=== PATIENT | male | born 1930 | race Caucasian/White ===

== ENCOUNTER 2017-08-26 13:30 | Inpatient (IN) | payer OTHER ==
[~2017-08-26] VITALS: Ht 167.6 cm; Wt 71.4 kg
[~2017-08-26 13:30] MED LIST: AGGRENOX 25 MG1 EACH PO; AMILORIDE HCL-1 EACH PO; CARDIZEM CD120 M2 PO; CLONAZEPAM0.5 M2 PO; FINASTERIDE5 M1 PO; HYDROCHLOROTHIA25 M1 PO; ISOSORBIDE MONO60 M1 PO; MELOXICAM15 M1 PO; PANTOPRAZOLE SO40 M1 PO; SIMVASTATIN20 M2 PO; TAMSULOSIN HCL0.4 M1 PO; TRAVATAN Z5 ML OPH
--- NOTE | 2017-08-26 14:08 | ED DYSPNEA/ASTHMA COMPLAINT ---
See Addendum History of Present Illness General Chief Complaint: Dyspnea (COPD, CHF, Other) Stated Complaint: BIBA DIFF BREATHING Source: patient, family Exam Limitations: no limitations Vital Signs & Intake/Output Vital Signs & Intake/Output Vital Signs Date Time Temp Pulse Resp B/P B/P Pulse O2 O2 Flow FiO2 Mean Ox Delivery Rate 08/26 1610 97.8 89 22 122/57 95 Nasal 4.0L Cannula 08/26 1426 Nasal Cannula 08/26 1357 96 Nasal 4.0L Cannula 08/26 1331 97.7 104 22 140/65 97 Nasal 4.0L Cannula Allergies Coded Allergies: NO KNOWN ALLERGIES (05/22/12) Reconcile Medications Amiloride/Hydrochlorothiazide (Amiloride HCl-Hctz 5-50 MG Tab) 5 MG-50 MG TABLET 1 TAB PO DAILY BP (Reported) Clonazepam 0.5 MG TABLET 1 TAB PO TIDPRN ANXIETY (Reported) Diltiazem HCl (Cardizem Cd) 120 MG CAP.ER.24H 1 TAB PO DAILY HR (Reported) Dipyridamole W/ Aspirin (Aggrenox 25 MG-200 MG Capsule) 25 MG-200 MG CPMP.12HR 1 TAB PO BID THINNER (Reported) Finasteride 5 MG TABLET 1 TAB PO DAILY UNK (Reported) Hydrochlorothiazide 25 MG TABLET 1 TAB PO DAILY HTN (Reported) Isosorbide Mononitrate (Isosorbide Mononitrate ER) 60 MG TAB.ER.24H 1 TAB PO DAILY BP (Reported) Meloxicam 15 MG TABLET 1 TAB PO DAILY PAIN (Reported) Pantoprazole Sodium 40 MG TABLET.DR 1 TAB PO DAILY GERD (Reported) Simvastatin (Simvastatin*) 20 MG TABLET 1 TAB PO QPM CHOL (Reported) Tamsulosin HCl 0.4 MG CAP.ER.24H 1 CAP PO DAILY URINE (Reported) Travoprost (Travatan Z) 0.004 % DROPS 1 GTT OPH QPM GLAUCOMA (Reported) Triage Note: PT BIBA FROM HOME SOB/DIFF BREATH - LAST 10 DAYS OF COUGH AND ANBX - O2 VIA NC AT 4L/M CO OF LOW OR NO APPETITE PT A&OX3 - DIMINISHED LUNG SOUNDS NOTED AT BASES BI-LAT - PT NOTED HEART HX Triage Nurses Notes Reviewed? yes Onset: 6 WEEKS AGO Duration: constant, worse persistent since Timing: CHRONIC OVER LAST 6 WEEKS Severity: moderate Activities at Onset: WORSE WHEN LAYING FLAT Prior Episodes/Possible Cause: chronic episodes, OVER LAST 6 WEEKS Associated Symptoms: cough, insomnia, loss of appetite HPI: 87 y/o male BIBA to ER w/ c/c increased SOB, productive cough and fatigue x 6 weeks. Per EMS RA sat 84%, placed on 3.5 L N/C sats 97% on arrival. Patient has seen PCP for same, flu test negative per family, given course of abx w/o improvement. Had chest CT scan 08/15 with plan to follow-up with Dr. Escobedo on 08/29. Patient denies fevers, chills, or chest pain. Patient states dyspnea worse at night when laying flat, experiencing insomnia from symptoms. Reported weight loss of 20 lbs over last 6 weeks per patient, admits anorexia and lack of appetitie. (Jossue Quiñones) Past History Travel History Traveled to [place] past 21 day No Medical History Any Pertinent Medical History? see below for history Neurological: NONE EENT: LENS INPLANT, GLAUCOMA Cardiovascular: HEART,HTN CHOL,?AFIB Respiratory: NONE Gastrointestinal: GERD Hepatic: NONE Renal: PROSTATE Musculoskeletal: NONE Psychiatric: anxiety Endocrine: NONE History of MRSA: No History of VRE: No History of CDIFF: No Tetanus Vaccine: 07/10/01 Surgical History Surgical History: non-contributory Psychosocial History Who do you live with Spouse Services at Home None What is your primary language Grenadian Tobacco Use: Quit >30 days ago Daily Tobacco Use Amount/Type: Cigar or Pipe use daily Family History Hx Contributory? No (Jossue Quiñones) Review of Systems Review of Systems Constitutional: Reports: no symptoms. EENTM: Reports: no symptoms. Respiratory: Reports: see HPI. Cardiovascular: Reports: no symptoms. GI: Reports: no symptoms. Genitourinary: Reports: no symptoms. Musculoskeletal: Reports: no symptoms. Skin: Reports: no symptoms. Neurological/Psychological: Reports: no symptoms. Hematologic/Endocrine: Reports: no symptoms. Immunologic/Allergic: Reports: no symptoms. All Other Systems: Reviewed and Negative (Jossue Quiñones) Physical Exam Physical Exam General Appearance: alert, awake, moderate distress Head: atraumatic Eyes: Bilateral: normal appearance, EOMI. Ears, Nose, Throat: normal ENT inspection, hearing grossly normal Neck: normal inspection Respiratory: decreased breath sounds, rhonchi Cardiovascular: regular rate/rhythm Extremities: normal inspection Neurologic/Psych: awake, alert, oriented x 3 Skin: intact, normal color Core Measures ACS in differential dx? No CVA/TIA Diagnosis No Sepsis Present: No Sepsis Focused Exam Completed? No (Jossue Quiñones) Progress Differential Diagnosis: asthma, AMI, bronchitis, costochondritis, CHF, COPD, musculoskeletal pain, pericarditis, pulmonary embolism, pneumonia, pneumothorax, unstable angina Plan of Care: Orders Procedure Date/time Status Regular Diet 08/26 D Active Pathway - chart 08/26 1700 Active Pathway - chart 08/26 1659 Active House Staff 08/26 1659 Active Patient Data 08/26 1659 Active LACTIC ACID 08/26 1659 Active Code Status 08/26 1659 Active Patient Data 08/26 1617 Active Intake & Output 08/26 1613 Active OXYGEN SETUP (GEN) 08/26 1530 Active Saline Lock 08/26 1530 Active Admit to inpatient 08/26 1530 Active Vital Signs 08/26 1530 Active Activity/Ambulation 08/26 1530 Active Code Status 08/26 1530 Complete BLOOD CULTURE 08/26 1407 Active LACTIC ACID 08/26 1401 Complete TROPONIN LEVEL 08/26 1358 Complete PARTIAL THROMBOPLASTIN TIME 08/26 1358 Complete PROTHROMBIN TIME 08/26 1358 Complete WESTERGREN SED RATE 08/26 1358 Complete COMPREHENSIVE METABOLIC PANEL 08/26 1358 Complete CBC WITHOUT DIFFERENTIAL 08/26 1358 Complete EKG 08/26 1338 Active VTE Mechanical Prophylaxis 08/26 UNK Active Current Medications Sig/Mary Carmen Start time Last Medication Dose Stop Time Status Admin Atorvastatin Calcium 20 MG 1700 08/27 1700 UNVr (Lipitor) Diltiazem HCl 120 MG DAILY 08/27 1000 UNVr (Cardizem CD) Finasteride 5 MG DAILY 08/27 1000 UNVr (Proscar) Isosorbide 60 MG DAILY 08/27 1000 UNVr Mononitrate (Imdur) Tamsulosin HCl 0.4 MG DAILY 08/27 1000 UNVr (Flomax) Omeprazole 40 MG DAILY AC 08/27 0700 UNVr (Prilosec) Dipyridamole/Aspirin 1 CAP BID 08/26 2200 UNVr (Aggrenox) Clonazepam 0.5 MG TIDPRN 08/26 1715 UNVr (KlonoPIN) 09/02 171 Non-Formulary 0 SEE ADMIN CRITERIA 08/26 1715 UNVr Medication (NON FORMULARY) Acetaminophen 325 MG Q6 PRN 08/26 1700 UNVr (Tylenol) Heparin Sodium 5,000 UNIT Q8 08/26 1659 AC (Porcine) Laboratory Tests 08/26/17 1401: Anion Gap 14, Estimated GFR 24 L, BUN/Creatinine Ratio 17.7, Glucose 125 H, Lactic Acid 1.4, Calcium 9.7, Total Bilirubin 0.5, AST 28, ALT 44, Alkaline Phosphatase 110, Troponin I < 0.01, Total Protein 6.3, Albumin 3.2 L, Globulin 3.1, Albumin/Globulin Ratio 1.0 L, PT 13.5 H, INR 1.24 H, APTT 29, CBC w Diff NO MAN DIFF REQ, RBC 3.13 L, MCV 94.8 H, MCH 31.4 H, MCHC 33.1, RDW 11.6, MPV 6.9 L, Gran % 87.6 H, Lymphocytes % 5.2 L, Monocytes % 5.6, Eosinophils % 1.5 , Basophils % 0.1, Absolute Granulocytes 17.6 H, Absolute Lymphocytes 1.0 L, Absolute Monocytes 1.1 H, Absolute Eosinophils 0.3, Absolute Basophils 0, ESR Westergren 59 H 08/26/17 1359: Lactic Acid Cancelled Microbiology 08/26 1418 BLOOD: Blood Culture - RECD 08/26 1411 BLOOD: Blood Culture - RECD Diagnostic Imaging: Viewed by Me: Radiology Read. Discussed w/RAD: Radiology Read. Radiology Impression: PATIENT: JAVIER CASTRO PRESENT AGE: 87 PATIENT ACCOUNT NO: [id number] : 32 LOCATION: [facility] ORDERING PHYSICIAN: Jossue ENG SERVICE DATE: 08/26/17 EXAM TYPE: RAD - XRY-PORTABLE CHEST XRAY EXAMINATION: XR PORTABLE CHEST CLINICAL INFORMATION: Shortness of breath COMPARISON: Multiple priors, most recently CT performed TECHNIQUE: Portable frontal view of the chest was obtained. FINDINGS: Cardiac leads overlie the chest. Prominent interstitial markings are seen at the lower lungs, better evaluated on prior recent CT. There is no new consolidation. No pneumothorax or pleural effusion. The cardiomediastinal silhouette is unchanged. IMPRESSION: No significant change from recent prior. Prominent interstitial markings are noted at the lower lungs, better evaluated on recent prior CT. No new consolidation. DICTATED BY: Ji Van MD DATE/TIME DICTATED:08/26/171451 GENERAL MACHINIST:RACHID DATE/TIME TRANSCRIBED:1451 CONFIDENTIAL, DO NOT COPY WITHOUT APPROPRIATE AUTHORIZATION. < Electronically signed in Other Vendor System> SIGNED BY: Ji Van MD 08/26/171456 Initial ED EKG: normal sinus rhythm, LBBB (Jossue Quiñones) Departure Departure Disposition: STILL A PATIENT Condition: Stable Clinical Impression Primary Impression: Respiratory failure Secondary Impressions: Pneumonia Referrals: Heladio Velasco MD (PCP/Family) Departure Forms: Customer Survey General Discharge Information Admission Note Spoke With: Nicholas Rojo MD Documentation of Exam: Documentation of any treatments & extenuating circumstances including Concerns Regarding Discharge (functional status, medication knowledge or non-compliance, living conditions, etc.) that warrant an admission rather than observation: Patient will require IV antibiotics. Infectious disease consultation. Pulmonary consultation. VQ scan. Supplemental oxygen. Oxygen saturation is 82 % on room air. Patient is not on oxygen at home. Breathing treatments. High risk. Patient would do poorly as an outpatient. (Jossue Quiñones) PA/ACCORDION REPAIRER Co-Sign Statement Statement: ED Attending supervision documentation- x I saw and evaluated the patient. I have also reviewed all the pertinent lab results and diagnostic results. I agree with the findings and the plan of care as documented in the PA's/ACCORDION REPAIRER's documentation. Progessive respiratory distresss, CHF requiring BiPAP, diuresis [] I have reviewed the ED Record and agree with the PA's/ACCORDION REPAIRER's documentation. [] Additions or exceptions (if any) to the PAs/ACCORDION REPAIRER's note and plan are summarized below: [] (Yasemin JARRETT,Xander) Critical Care Note Critical Care Note Critical Care Time: 30-74 min (35) (Jossue Quiñones)
[2017-08-26 14:24] LABS: ABSOLUTE BASOPHIL COUNT 0 /CUMM (0.0-0.2); ABSOLUTE EOSINOPHIL COUNT 0.3 /CUMM (0.0-0.7); ABSOLUTE GRANULOCYTE CT 17.6 /CUMM (1.4-6.5); ABSOLUTE MONOCYTE COUNT 1.1 /CUMM (0.10-0.60); BASOPHIL % 0.1 % (0.0-2.0); EOSINOPHIL % 1.5 % (0-5); HEMATOCRIT 29.6 % (42-52); MEAN CORPUSCULAR HGB 31.4 PG (27.0-31.0); MEAN CORPUSCULAR HGB CONC 33.1 G/DL (33.0-37.0); MEAN CORPUSCULAR VOLUME 94.8 FL (80.0-94.0); MEAN PLATELET VOLUME 6.9 FL (7.4-10.4); PLATELET COUNT 600 /CUMM (130-400); RBC DISTRIBUTION WIDTH 11.6 % (11.5-14.5); RED BLOOD CELL CT 3.13 /CUMM (4.70-6.10); WHITE BLOOD CELL COUNT 20.1 /CUMM (4.8-10.8)
[2017-08-26 14:36] LABS: PT 13.5 SEC (9.4-12.5); PTT 29 SEC (25-37)
[2017-08-26 14:40] LABS: GRANULOCYTE % 87.6 % (42.2-75.2)
--- NOTE | 2017-08-26 14:57 | RADIOLOGY REPORT ---
EXAMINATION: XR PORTABLE CHEST CLINICAL INFORMATION: Shortness of breath COMPARISON: Multiple priors, most recently CT performed 08/23/2017 TECHNIQUE: Portable frontal view of the chest was obtained. FINDINGS: Cardiac leads overlie the chest. Prominent interstitial markings are seen at the lower lungs, better evaluated on prior recent CT. There is no new consolidation. No pneumothorax or pleural effusion. The cardiomediastinal silhouette is unchanged. IMPRESSION: No significant change from recent prior. Prominent interstitial markings are noted at the lower lungs, better evaluated on recent prior CT. No new consolidation.
--- NOTE | 2017-08-26 17:02 | NUCLEAR MEDICINE REPORT ---
EXAMINATION: PULMONARY VENTILATION PERFUSION STUDY CLINICAL INFORMATION: Shortness of breath, hypoxic. COMPARISON: The previous lung scan dated 09/10/2015 is available for comparison. A radiograph the chest dated 08/26/2017 is also available for comparison. TECHNIQUE: Serial gamma scintillation camera images were obtained over the posterior chest during the single breath, equilibrium rebreathing and washout of 14.5 mCi Xe 133 gas. The patient then received 3.8 mCi Tc-99m MAA intravenously and a 6-view perfusion study was performed. FINDINGS: Ventilation images: On the single breath and equilibrium images there is mildly decreased activity diffusely in the right lung in the left upper lung field. During the washout phase is mild retention at the left lung base. Perfusion images: No segmental perfusion defects are present. There is homogeneous distribution of activity bilaterally. There are no focal anatomic appearing perfusion defects present. IMPRESSION: Normal radionuclide lung scan. There is evidence of some obstructive airway disease with some gas trapping present in the left lung base on the ventilation images.
[2017-08-26 18:14] VITALS: BP 142/64
--- NOTE | 2017-08-26 18:40 | Admission Certification ---
Admission Certification Certification Statement - As attending physician, I certify that at the time of - admission, based on clinical presentation, severity of - symptoms, need for further diagnostic testing and - therapeutic interventions, and risk of adverse outcomes - without in-hospital treatment, in my clinical assessment, - this patient requires an acute hospital stay for a minimum - of two nights or longer. I have also considered psychsocial - factors such as support system, advanced age, financial - issues, cognitive issues, and failed out-patient treatments, - past re-admission history, safety of patient, and lack of - compliance as applicable. Specific rationale supporting this admission is: Shortness of breath, hypoxemia my weight loss, very abnormal CT scan of the chest
--- NOTE | 2017-08-26 18:43 | History & Physical ---
See Addendum General Information and HPI MD Statement: I have seen and personally examined JAVIER CASTRO and documented this H&P. The patient is a 87 year old M who presented with a patient stated chief complaint of [shortness of breath]. 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 Patient reports that he has been feeling very weak, tired, lethargic for the past 3-4 weeks. He was having exertional shortness of breath with clear productive sputum. He saw his PCP Dr. Velasco for the same and was prescribed antibiotics about 3 weeks ago. This was negative. At that time. There was no improvement in his symptoms. He does report some orthopnea. Also reports , loss of appetite and weight loss of about 19-20 pounds over the past 2months. Denied any fevers, chills, chest pain, palpitations, nausea, vomiting, urinary or bowel symptoms. He had no sick contacts and no recent travels. No exposure to pets, birds, new environment. He is in a smoker and quit about 20 years ago. 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 His is a heavy smoker, however patient reports she smokes mostly in the basement. Patient had a CT scan done on 08/15 and was supposed to follow up with Dr. Escobedo for his pulmonary symptoms. Today's symptoms were very severe and EMS was called. Per EMS RA sats were 84%, and he was placed on 3.5 L nasal cannula with improvement of sats to 97% on arrival to the ED. Vitals in the ED: Temperature 97.7, pulse 104, respiration 22,Saturating 97% on 4 L nasal cannula. Labs were significant for a white count of 20.1 with no left shift, hemoglobin 9.8/29.6(baseline 10-12), Platelet count 600, ESR 59, potassium 5.3, creatinine 2.6(baseline 1.8), INR 1.[address]( CT chest (08/23): Shows multiple bilateral reticulonodular opacities with lower lobe predominance, right greater than left.There are associated biliary sized nodules predominantly noted in the lower lobes. Some larger irregular nodular opacities as detailed also predominantly noted in the right lower lobe.Reactive nodes noted in the mediastinum. VQ scan low probability of PE. Chest x-ray shows no consolidation. Allergies/Medications Allergies: Coded Allergies: NO KNOWN ALLERGIES (05/22/12) Home Med list Amiloride/Hydrochlorothiazide (Amiloride HCl-Hctz 5-50 MG Tab) 5 MG-50 MG TABLET 1 TAB PO DAILY BP (Reported) Clonazepam 0.5 MG TABLET 1 TAB PO TIDPRN ANXIETY (Reported) Diltiazem HCl (Cardizem Cd) 120 MG CAP.ER.24H 1 TAB PO DAILY HR (Reported) Dipyridamole W/ Aspirin (Aggrenox 25 MG-200 MG Capsule) 25 MG-200 MG CPMP.12HR 1 TAB PO BID THINNER (Reported) Finasteride 5 MG TABLET 1 TAB PO DAILY UNK (Reported) Hydrochlorothiazide 25 MG TABLET 1 TAB PO DAILY HTN (Reported) Isosorbide Mononitrate (Isosorbide Mononitrate ER) 60 MG TAB.ER.24H 1 TAB PO DAILY BP (Reported) Meloxicam 15 MG TABLET 1 TAB PO DAILY PAIN (Reported) Pantoprazole Sodium 40 MG TABLET.DR 1 TAB PO DAILY GERD (Reported) Simvastatin (Simvastatin*) 20 MG TABLET 1 TAB PO QPM CHOL (Reported) Tamsulosin HCl 0.4 MG CAP.ER.24H 1 CAP PO DAILY URINE (Reported) Travoprost (Travatan Z) 0.004 % DROPS 1 GTT OPH QPM GLAUCOMA (Reported) Past History Travel History Traveled to [place] past 21 day No Medical History Neurological: NONE EENT: LENS INPLANT, GLAUCOMA Cardiovascular: HEART,HTN CHOL,?AFIB Respiratory: NONE Gastrointestinal: GERD Hepatic: NONE Renal: PROSTATE Musculoskeletal: NONE Psychiatric: anxiety Endocrine: NONE History of MRSA: No History of VRE: No History of CDIFF: No Tetanus Vaccine: 07/10/01 Surgical History Surgical History: non-contributory Past Family/Social History Psychosocial History Services at Home: None Review of Systems Review of Systems Constitutional: Reports: malaise, weakness. EENTM: Reports: no symptoms. Cardiovascular: Reports: orthopena. Respiratory: Reports: cough, orthopnea, short of breath, sputum production, wheezing. GI: Reports: no symptoms. Genitourinary: Reports: no symptoms. Musculoskeletal: Reports: no symptoms. Exam & Diagnostic Data Last 24 Hrs of Vital Signs/I&O Vital Signs Date Time Temp Pulse Resp B/P B/P Pulse O2 O2 Flow FiO2 Mean Ox Delivery Rate 08/26 1610 97.8 89 22 122/57 95 Nasal 4.0L Cannula 08/26 1426 Nasal Cannula 08/26 1357 96 Nasal 4.0L Cannula 08/26 1331 97.7 104 22 140/65 97 Nasal 4.0L Cannula Intake & Output 08/26 1600 08/26 0800 08/26 0000 Intake Total Output Total Balance Patient 65.317 kg Weight Weight Reported by Patient Measurement Method Physical Exam General Appearance Alert, Oriented X3, Cooperative, Mild Distress Skin SKIN HYPOPIGMENTATION NOTED OVER THE NASAL ALA Sepsis Skin Exam (color): Normal for Ethnicity HEENT Atraumatic, PERRLA, EOMI Neck Supple, No JVD Lymphatic Cervical nl Cardiovascular Regular Rate, Normal S1, Normal S2, SYSTOLIC MURMUR Lungs BILATERAL BASAL CRACKLES, OCCASIONAL RONCHI, BREATH SOUNDS DIMINISHED AT BASES Abdomen Normal Bowel Sounds, Soft Extremities No Clubbing, No Cyanosis, No Edema Last 24 Hrs of Labs/Jose: Laboratory Tests 08/26/17 1659: Lactic Acid Cancelled 08/26/17 1401: Anion Gap 14, Estimated GFR 24 L, BUN/Creatinine Ratio 17.7, Glucose 125 H, Lactic Acid 1.4, Calcium 9.7, Total Bilirubin 0.5, AST 28, ALT 44, Alkaline Phosphatase 110, Troponin I < 0.01, Total Protein 6.3, Albumin 3.2 L, Globulin 3.1, Albumin/Globulin Ratio 1.0 L, PT 13.5 H, INR 1.24 H, APTT 29, CBC w Diff NO MAN DIFF REQ, RBC 3.13 L, MCV 94.8 H, MCH 31.4 H, MCHC 33.1, RDW 11.6, MPV 6.9 L, Gran % 87.6 H, Lymphocytes % 5.2 L, Monocytes % 5.6, Eosinophils % 1.5 , Basophils % 0.1, Absolute Granulocytes 17.6 H, Absolute Lymphocytes 1.0 L, Absolute Monocytes 1.1 H, Absolute Eosinophils 0.3, Absolute Basophils 0, ESR Westergren 59 H 08/26/17 1359: Lactic Acid Cancelled Microbiology 08/26 1418 BLOOD: Blood Culture - RECD 08/26 1411 BLOOD: Blood Culture - RECD Assessment/Plan Assessment: Patient is 87-year-old male with remote history of tobacco abuse(quit 20+ years ago), 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 Vitals in the ED: Temperature 97.7, pulse 104, respiration 22,Saturating 97% on 4 L nasal cannula. Labs were significant for a white count of 20.1 with no left shift, hemoglobin 9.8/29.6(baseline 10-12), Platelet count 600, ESR 59, potassium 5.3, creatinine 2.6(baseline 1.8), INR 1.[address]( CT chest (08/23): Shows multiple bilateral reticulonodular opacities with lower lobe predominance, right greater than left.There are associated biliary sized nodules predominantly noted in the lower lobes. Some larger irregular nodular opacities as detailed also predominantly noted in the right lower lobe.Reactive nodes noted in the mediastinum. VQ scan low probability of PE. Chest x-ray shows no consolidation. Assesment and plan #1 Acute hypoxic respiratory failure: The cause of the respiratory failure is unclear at this point. Given multiple bilateral reticulonodular opacities differentials are white including tuberculosis, hypersensitivity pneumonitis, sarcoidosis,?l malignancy? Lymphangitic carcinomatosis. PE has been ruled out with a negative VQ scan. No consolidation on chest x-ray. Need to rule out aspiration pneumonia -Admit patient to [facility] -Maintain saturations more than 92% -Will get a swallow eval -Gentle hydration with IV fluids -TRC nebs [id number] -Solu-Medrol 40 every 8 hours -Continue ceftriaxone and azithromycin -Urine strep and Legionella -Blood and sputum cultures -QuantiFERON test to rule out TB -Pulmonology consult with Dr. Escobedo in on Tuesday -Patient will need an extensive pulmonary workup/biopsy/further imaging in the future. #2 Acute on chronic kidney injury -Check BP in a.m. -Gentle hydration with IV fluids -Avoid nephrotoxins #3 History of coronary artery disease: Multiple cardic catheterizations in the past. -Continue home medications Cardizem, Imdur, Aggrenox and atorvastatin -We will check an echocardiogram -We will check proBNP -Dr. Mcmahon is his finance administrator #4 history of BPH -continue Flomax #5 thrombocytosis DVT prophylaxis subcutaneous heparin Full code Mild pain pathway As Ranked By This Provider Problem List: 1. Acute respiratory failure with hypoxia Core Measures/Misc (02/13) Acute Coronary Syndrome ACS Diagnosis: No Congestive Heart Failure Congestive Heart Failure Diagnosis No Cerebrovascular Accident CVA/TIA Diagnosis: No VTE (View Protocol) VTE Risk Factors Age>40 No Mechanical VTE Prophylaxis d/t N/A MechProphylax Ordered No VTE Pharm Prophylaxis d/t NA PharmProphylax ordered Sepsis (View protocol) Sepsis Present: No
--- NOTE | 2017-08-26 18:44 | PN- Att Addend ---
Attending Addendum Attending Brief Note 87-year-old white male has not been feeling well for several weeks first had some nausea some abdominal discomfort, had CT of the abdomen first which showed some subtle abnormalities is to to do a CT scan of the chest, short of breath having some wheezes fever. Patient had a CAT scan of the chest which showed several abnormalities have to rule out acute infection or other kind of diseases like sarcoidosis and rule out a malignancy. Patient was to see Dr. Escobedo on Tuesday but the called concerned that his shortness of breath is worse and he is very weak he was sent to the emergency room. He had a ventilation perfusion lung scan which showed no acute pulmonary emboli that was admitted shortness of breath or will get all the cultures of the special tests needed per pulmonary's recommendations. Antibiotic therapy per recommendations respiratory therapy will even get a swallowing evaluation . Laboratory Tests 08/26/17 1659: Lactic Acid Cancelled 08/26/17 1401: Anion Gap 14, Estimated GFR 24 L, BUN/Creatinine Ratio 17.7, Glucose 125 H, Lactic Acid 1.4, Calcium 9.7, Total Bilirubin 0.5, AST 28, ALT 44, Alkaline Phosphatase 110, Troponin I < 0.01, [id number] Pept Pending, Total Protein 6.3, Albumin 3.2 L, Globulin 3.1, Albumin/Globulin Ratio 1.0 L, PT 13.5 H, INR 1.24 H, APTT 29, CBC w Diff NO MAN DIFF REQ, RBC 3.13 L, MCV 94.8 H, MCH 31.4 H, MCHC 33.1, RDW 11.6, MPV 6.9 L, Gran % 87.6 H, Lymphocytes % 5.2 L, Monocytes % 5.6, Eosinophils % 1.5, Basophils % 0.1, Absolute Granulocytes 17.6 H, Absolute Lymphocytes 1.0 L, Absolute Monocytes 1.1 H, Absolute Eosinophils 0.3, Absolute Basophils 0, ESR Westergren 59 H 08/26/17 1359: Lactic Acid Cancelled
--- NOTE | 2017-08-26 19:30 | Cons- Pulmonary ---
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 Patient reports that he has been feeling very weak, tired, lethargic for the past 3-4 weeks. He was having exertional shortness of breath with clear productive sputum. He saw his PCP Dr. Velasco for the same and was prescribed antibiotics about 3 weeks ago. This was negative. At that time. There was no improvement in his symptoms. He does report some orthopnea. Also reports , loss of appetite and weight loss of about 19-20 pounds over the past 2months. Denied any fevers, chills, chest pain, palpitations, nausea, vomiting, urinary or bowel symptoms. He had no sick contacts and no recent travels. No exposure to pets, birds, new environment. He is in a smoker and quit about 20 years ago. 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 His is a heavy smoker, however patient reports she smokes mostly in the basement. Today's symptoms were very severe and EMS was called. Per EMS RA sats were 84%, and he was placed on 3.5 L nasal cannula with improvement of sats to 97% on arrival to the ED. Vitals in the ED: Temperature 97.7, pulse 104, respiration 22,Saturating 97% on 4 L nasal cannula. Labs were significant for a white count of 20.1 with no left shift, hemoglobin 9.8/29.6(baseline 10-12), Platelet count 600, ESR 59, potassium 5.3, creatinine 2.6(baseline 1.8), INR 1.[address]( CT chest (08/23): Shows multiple bilateral reticulonodular opacities with lower lobe predominance, right greater than left.There are associated biliary sized nodules predominantly noted in the lower lobes. Some larger irregular nodular opacities as detailed also predominantly noted in the right lower lobe.Reactive nodes noted in the mediastinum. VQ scan low probability of PE. Chest x-ray shows no consolidation. Allergies/Medications Allergies: Coded Allergies: NO KNOWN ALLERGIES (05/22/12) Home Med List: Amiloride/Hydrochlorothiazide (Amiloride HCl-Hctz 5-50 MG Tab) 5 MG-50 MG TABLET 1 TAB PO DAILY BP (Reported) Clonazepam 0.5 MG TABLET 1 TAB PO TIDPRN ANXIETY (Reported) Diltiazem HCl (Cardizem Cd) 120 MG CAP.ER.24H 1 TAB PO DAILY HR (Reported) Dipyridamole W/ Aspirin (Aggrenox 25 MG-200 MG Capsule) 25 MG-200 MG CPMP.12HR 1 TAB PO BID THINNER (Reported) Finasteride 5 MG TABLET 1 TAB PO DAILY UNK (Reported) Hydrochlorothiazide 25 MG TABLET 1 TAB PO DAILY HTN (Reported) Isosorbide Mononitrate (Isosorbide Mononitrate ER) 60 MG TAB.ER.24H 1 TAB PO DAILY BP (Reported) Meloxicam 15 MG TABLET 1 TAB PO DAILY PAIN (Reported) Pantoprazole Sodium 40 MG TABLET.DR 1 TAB PO DAILY GERD (Reported) Simvastatin (Simvastatin*) 20 MG TABLET 1 TAB PO QPM CHOL (Reported) Tamsulosin HCl 0.4 MG CAP.ER.24H 1 CAP PO DAILY URINE (Reported) Travoprost (Travatan Z) 0.004 % DROPS 1 GTT OPH QPM GLAUCOMA (Reported) Review of Systems Comments Reports: malaise, weakness. EENTM: Reports: no symptoms. Cardiovascular: Reports: orthopena. Respiratory: Reports: cough, orthopnea, short of breath, sputum production, wheezing. GI: Reports: no symptoms. Genitourinary: Reports: no symptoms. Musculoskeletal: Reports: no symptoms. Past History Travel History Traveled to [place] past 21 day No Medical History Blood Transfusion Hx: No Neurological: NONE EENT: LENS INPLANT, GLAUCOMA Cardiovascular: HEART,HTN CHOL Respiratory: NONE Gastrointestinal: GERD Hepatic: NONE Renal: NONE Musculoskeletal: NONE Psychiatric: anxiety Endocrine: NONE Blood Disorders: NONE Cancer(s): SKIN CANCER Surgical History Surgical History: ROTATOR CUFF Psychosocial History Where Do You Live? Home Services at Home: None Smoking Status: Former Smoker Exam & Diagnostic Data Last 24 Hrs of Vital Signs/I&O Vital Signs Date Time Temp Pulse Resp B/P B/P Pulse O2 O2 Flow FiO2 Mean Ox Delivery Rate 08/26 1814 97.6 93 21 142/64 97 Nasal Cannula 08/26 1805 96 Nasal 3.5L Cannula 08/26 1610 97.8 89 22 122/57 95 Nasal 4.0L Cannula 08/26 1426 Nasal Cannula 08/26 1357 96 Nasal 4.0L Cannula 08/26 1331 97.7 104 22 140/65 97 Nasal 4.0L Cannula Intake & Output 08/26 1600 08/26 0800 08/26 0000 Intake Total Output Total Balance Patient 144 lb Weight Weight Reported by Patient Measurement Method Last 48 Hrs of Labs/Jose: Laboratory Tests 08/26/17 1659: Lactic Acid Cancelled 08/26/17 1401: Anion Gap 14, Estimated GFR 24 L, BUN/Creatinine Ratio 17.7, Glucose 125 H, Lactic Acid 1.4, Calcium 9.7, Total Bilirubin 0.5, AST 28, ALT 44, Alkaline Phosphatase 110, Troponin I < 0.01, Jrh-C-Kswoggwnkds Pept Pending, Total Protein 6.3, Albumin 3.2 L, Globulin 3.1, Albumin/Globulin Ratio 1.0 L, PT 13.5 H, INR 1.24 H, APTT 29, CBC w Diff NO MAN DIFF REQ, RBC 3.13 L, MCV 94.8 H, MCH 31.4 H, MCHC 33.1, RDW 11.6, MPV 6.9 L, Gran % 87.6 H, Lymphocytes % 5.2 L, Monocytes % 5.6, Eosinophils % 1.5, Basophils % 0.1, Absolute Granulocytes 17.6 H, Absolute Lymphocytes 1.0 L, Absolute Monocytes 1.1 H, Absolute Eosinophils 0.3, Absolute Basophils 0, ESR Westergren 59 H 08/26/17 1359: Lactic Acid Cancelled Assessment/Plan Impression/Plan: Sig Data CT IMPRESSION: 1. Compared to the prior CT chest, there has been interval development of multiple bilateral reticulonodular opacities with lower lobe predominance, right greater than left. There are associated biliary sized nodules predominantly noted in the lower lobes. Some larger irregular nodular opacities as detailed also predominantly noted in the right lower lobe. Differential possibility includes DIP, severe hypersensitivity pneumonitis or atypical sarcoidosis given the lower lobe predominance. Although there is presence of miliary nodules, the overall appearance is not typical for miliary tuberculosis. Lastly, lymphangitic carcinomatosis cannot be entirely excluded but appears less likely in the absence of mediastinal and hilar lymphadenopathy. Clinical and if indicated, biopsy correlation recommended. If biopsy is not performed, close monitoring or further assessment of the larger nodules with PET/CT recommended . 2. No gross lymphadenopathy. Reactive nodes noted in the mediastinum. DICTATED BY: Mina Gage MD DATE/TIME DICTATED:08/25/171615 VQ neg PRior PFT nil sig no sig obstructive lung disease IMPRESSION This is an 87-year-old gentleman with history of very heavy tobacco use and quit more than 20 years ago, previous squamous cell carcinoma of the skin, coronary artery disease, previous TIA, hypertension, hyperlipidemia, spinal stenosis with back surgery, recurrent hiatal hernia followed by GI, previous EGD which had shown Patricia's esophagus with hiatal hernia, biopsy done last year and no malignancy, good performance status up until recently, chronic kidney disease, mild facial twitches for which she is on Klonopin for a long period, BPH, now has * Diffuse lung disease, lower lobe predominant with significant dyspnea mild cough occasional sputum production with a very broad differential. Patient does have systemic symptoms which includes 20 pound weight loss in the recent past as well. Patient is afebrile however he was on nonsteroidal. Inflammatory process versus malignancy needs to be ruled out. 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 Recommendation * Sputum culture for bacterial, AFB 3. Patient does not need to be isolated no clinical evidence suggestive of tuberculosis for now. * Continue current antibiotics, swab nose for MRSA, check urinary antigens, the patient cannot produce any sputum please have respiratory therapist to give him hypertonic saline nebulizer and then try to induce him for sputum * Vanco one dose for now and swab the nares and if neg can stop * Ok with steroids change to 60 mg daily for now * Keep hob up * Po ppi bid * Try to reduce klonipin if able * Flu swab * Check QuantiFERON-TB Gold, HIV test * Discontinue NSAID * I did discuss with the family will discontinue Aggrenox and change him to 81 mg aspirin in anticipation of a biopsy if he needs it in the future * Check ESR, CRP, CPK, aldolase, JULI, rheumatoid factor, Sjogren's antibody panel, anti-Kiarra 1 antibody, myositis antibody panel (to be sent to [facility]), ANCA panel, angiotensin-converting enzyme, BNP, echocardiogram, CEA, CA 19-9, PSA. * ECHO soon If Stable will consider Bronch vs open lung biopsy next week Discussed with the family Prog guarded Consult Acknowledgment - Thank you for your consult request.
[2017-08-26 22:37] VITALS: BP 140/60
--- NOTE | 2017-08-27 06:54 | PN- Housestaff ---
Subjective Follow-up For: Acute hypoxic respiratory failure Subjective: Seen and examined. Resting comfortably. On 2 L of nasal oxygen Reports that he was unable to sleep well because of change in place patient has been evaluated by Dr. Escobedo and extensive workup has been on Review of Systems Constitutional: Reports: see HPI. Objective Last 24 Hrs of Vital Signs/I&O Vital Signs Date Time Temp Pulse Resp B/P B/P Pulse O2 O2 Flow FiO2 Mean Ox Delivery Rate 08/27 0703 97.4 87 20 138/68 95 Nasal 2.0L Cannula 08/27 0000 93 Nasal 1.0L Cannula 08/26 2237 Nasal 2.0L Cannula 08/26 2237 97.7 89 21 140/60 96 Nasal Cannula 08/26 1814 97.6 93 21 142/64 97 Nasal Cannula 08/26 1805 96 Nasal 3.5L Cannula 08/26 1610 97.8 89 22 122/57 95 Nasal 4.0L Cannula 08/26 1426 Nasal Cannula 08/26 1357 96 Nasal 4.0L Cannula 08/26 1331 97.7 104 22 140/65 97 Nasal 4.0L Cannula Intake & Output 08/27 0800 08/27 0000 08/26 1600 Intake Total 500 1150 Output Total 700 250 Balance -200 900 Intake, IV 500 550 Intake, Oral 0 600 Output, Urine 700 250 Patient 143 lb 144 lb Weight Weight Reported by Patient Reported by Patient Measurement Method Physical Exam General Appearance: Alert, Oriented X3 Other Physical Findings: Skin SKIN HYPOPIGMENTATION NOTED OVER THE NASAL ALA Sepsis Skin Exam (color): Normal for Ethnicity HEENT Atraumatic, PERRLA, EOMI Neck Supple, No JVD Lymphatic Cervical nl Cardiovascular Regular Rate, Normal S1, Normal S2, SYSTOLIC MURMUR Lungs BILATERAL BASAL CRACKLES, OCCASIONAL RONCHI, BREATH SOUNDS DIMINISHED AT BASES Abdomen Normal Bowel Sounds, Soft Extremities No Clubbing, No Cyanosis, No Edema Current Medications: Current Medications Sig/Mary Carmen Start time Last Medication Dose Route Stop Time Status Admin Acetaminophen 325 MG Q6 PRN 08/26 1700 AC PO Albuterol Sulfate 3 ML Q4P PRN 08/26 2200 AC 08/26 INH 2145 Albuterol Sulfate 3 ML ONCE ONE 08/26 1415 DC 08/26 INH 08/26 1416 1425 Aspirin 81 MG DAILY 08/27 1000 AC PO Atorvastatin Calcium 20 MG 1700 08/27 1700 AC PO Azithromycin 500 MG DAILY 08/27 1000 AC Dextrose/Water 250 ML IV Azithromycin 500 MG ONCE ONE 08/26 1415 DC 08/26 Dextrose/Water 250 ML IV 08/26 1514 1427 Ceftriaxone Sodium 1,000 MG DAILY 08/27 1000 AC IV Ceftriaxone Sodium 0 .STK-MED ONE 08/26 1435 DC .ROUTE Ceftriaxone Sodium 1,000 MG ONCE ONE 08/26 1415 DC 08/26 IV 08/26 1416 1436 Clonazepam 0.5 MG TID PRN 08/26 2200 AC PO 09/02 2159 Diltiazem HCl 120 MG DAILY 08/27 1000 AC PO Dipyridamole/Aspirin 1 CAP BID 08/26 2200 CAN PO Finasteride 5 MG DAILY 08/27 1000 AC PO Heparin Sodium 5,000 UNIT Q8 08/26 1659 AC 08/27 (Porcine) SC 0655 Ipratropium [place] 2.5 ML ONCE ONE 08/26 1415 DC 08/26 INH 08/26 1416 1425 Isosorbide 60 MG DAILY 08/27 1000 AC Mononitrate PO Latanoprost 1 GTT AT BEDTIME 08/26 2200 AC 08/26 OPH 2124 Methylprednisolone 40 MG Q8 08/26 2200 CAN IV Methylprednisolone 0 .STK-MED ONE 08/26 1425 DC .ROUTE Methylprednisolone 125 MG ONCE ONE 08/26 1415 DC 08/26 IV 08/26 1416 1427 Omeprazole 40 MG BID 08/27 1000 AC PO Omeprazole 40 MG DAILY AC 08/27 0700 DC PO Prednisone 60 MG DAILY 08/26 1940 AC 08/26 PO 2239 Sodium Chloride 1,000 ML Q13H 08/26 1845 AC 08/26 IV 08/27 Tamsulosin HCl 0.4 MG DAILY 08/27 1000 AC PO Vancomycin HCl 1,000 MG ONCE ONE 08/26 1945 DC 08/26 Dextrose/Water 250 ML IV 08/27 2043 223 Last 24 Hrs of Lab/Jose Results Last 24 Hrs of Labs/Mics: Laboratory Tests 08/26/175: Aldolase Pending, Angiotensin Convert Enz Pending, Carcinoembryonic Ag Pending, CA 19-9 Antigen Pending, ANCA Pending, SS-A/Ro Antibody Pending, SS-B/La Antibody Pending, Ref Lab Test Result Pending 08/26/17 1915: TB Test (QFT) Mitogen Pending, TB Test Mitogen - Nil Pending, TB Test Antigen - Nil Pending, TB Test (QFT) Interp Pending 08/26/17 1659: Lactic Acid Cancelled 08/26/17 1401: Rheum Factor Semi-Quant < 8.6 08/26/17 1401: Anion Gap 14, Estimated GFR 24 L, BUN/Creatinine Ratio 17.7, Glucose 125 H, Lactic Acid 1.4, Calcium 9.7, Total Bilirubin 0.5, AST 28, ALT 44, Alkaline Phosphatase 110, Creatine Kinase 50 L, Troponin I < 0.01, C-Reactive Prot, Quant 7.6 H, Bgw-M-Cgveerfpgwl Pept 580 H, Total Protein 6.3, Albumin 3.2 L, Globulin 3.1, Albumin/Globulin Ratio 1.0 L, Total PSA 0.37, PT 13.5 H, INR 1.24 H, APTT 29, CBC w Diff NO MAN DIFF REQ, RBC 3.13 L, MCV 94.8 H, MCH 31.4 H, MCHC 33.1, RDW 11.6, MPV 6.9 L, Gran % 87.6 H, Lymphocytes % 5.2 L, Monocytes % 5.6, Eosinophils % 1.5, Basophils % 0.1, Absolute Granulocytes 17.6 H, Absolute Lymphocytes 1.0 L, Absolute Monocytes 1.1 H, Absolute Eosinophils 0.3, Absolute Basophils 0, ESR Westergren 59 H, JULI Titer Pending, Anti-Nuclear Antibody Pending, HIV 1&2 Ab Western Blot NONREACTIVE 08/26/17 1359: Lactic Acid Cancelled Microbiology 08/27 2239 LOWER RESP: AFB Culture with PCR Identification - RES 08/27 2239 LOWER RESP: AFB Smear Concentration - RES 08/26 2149 URINE ROUT: Legionella Antigen - COMP 08/26 2149 URINE ROUT: Streptococcus pneumoniae Antigen (M - COMP 08/27 2119 NASOPHARYN: Influenza Virus A & B Rapid Smear - COMP 08/26 2114 BLOOD: Blood Culture - RECD 08/26 2029 BLOOD: Blood Culture - RECD 08/27 1999 UPPER RESP: Surveillance Culture - RECD 08/26 185 LOWER RESP: Respiratory Culture - ORD 08/26 185 LOWER RESP: Gram Stain - ORD 08/26 1418 BLOOD: Blood Culture - RECD 08/26 1411 BLOOD: Blood Culture - RECD Assessment/Plan Assessment: Patient is 87-year-old male with remote history of tobacco abuse(quit 20+ years ago), 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 Vitals in the ED: Temperature 97.7, pulse 104, respiration 22,Saturating 97% on 4 L nasal cannula. Labs were significant for a white count of 20.1 with no left shift, hemoglobin 9.8/29.6(baseline 10-12), Platelet count 600, ESR 59, potassium 5.3, creatinine 2.6(baseline 1.8), INR 1.[address]( CT chest (08/23): Shows multiple bilateral reticulonodular opacities with lower lobe predominance, right greater than left.There are associated biliary sized nodules predominantly noted in the lower lobes. Some larger irregular nodular opacities as detailed also predominantly noted in the right lower lobe.Reactive nodes noted in the mediastinum. VQ scan low probability of PE. Chest x-ray shows no consolidation. Assesment and plan #Acute hypoxic respiratory failure: The cause of the respiratory failure is unclear at this point. Given multiple bilateral reticulonodular opacities differentials are white including tuberculosis, hypersensitivity pneumonitis, sarcoidosis,?l malignancy? Lymphangitic carcinomatosis. PE has been ruled out with a negative VQ scan. No consolidation on chest x-ray. Need to rule out aspiration pneumonia -Admit patient to [facility] -Maintain saturations more than 92% -Will get a swallow eval -Gentle hydration with IV fluids -TRC nebs nyibvt-asn-lwaco -Prednisone 60 MG daily -Continue ceftriaxone and azithromycin -patient received 1 dose of vancomycin follow-up NARES culture for MRSA ifnegative vancomycin can be discontinued -Urine strep and Legionella negative -Blood and sputum cultures -Afbx 3, QuantiFERON test to rule out TB -FLU swab negative -Patient will need an extensive pulmonary workup/biopsy/further imaging in the future. -ESR, CRP elevated, CPK 50 -CEA, CA 19-9, Aldolase, DENISE pending -RF WNL, JULI, ANCA pending -Sjogren's antibody panel, anti-Kiarra 1 antibody pending -Myositis antibody panel, will be ordered on Tuesday after talking to lab and has to be sent out to [facility] #Acute on chronic kidney injury -Continue to monitor creatinine -Gentle hydration with IV fluids -Avoid nephrotoxins #History of coronary artery disease: Multiple cardic catheterizations in the past. -Continue home medications Cardizem, Imdur, Aggrenox and atorvastatin - echocardiogram is pending -proBNP 580 -Dr. Mcmahon is his solar energy specialist #History of BPH -continue Flomax #thrombocytosis Likely reactive -Continue to monitor DVT prophylaxis subcutaneous heparin Full code Mild pain pathway Problem List: 1. Acute respiratory failure with hypoxia Pain Ratin Pain Location: prn Pain Goal: Pain 4 or less Pain Plan: prn Tomorrow's Labs & Rationales: cbc bep
[2017-08-27 07:03] VITALS: BP 138/68
[2017-08-27 08:49] LABS: ABSOLUTE BASOPHIL COUNT 0 /CUMM (0.0-0.2); ABSOLUTE EOSINOPHIL COUNT 0 /CUMM (0.0-0.7); ABSOLUTE LYMPH COUNT 0.6 /CUMM (1.2-3.4); ABSOLUTE MONOCYTE COUNT 0.2 /CUMM (0.10-0.60); BASOPHIL % 0.1 % (0.0-2.0); EOSINOPHIL % 0 % (0-5); GRANULOCYTE % 93.5 % (42.2-75.2); HEMATOCRIT 28.5 % (42-52); MEAN CORPUSCULAR HGB 31.5 PG (27.0-31.0); MEAN CORPUSCULAR VOLUME 95.5 FL (80.0-94.0); MEAN PLATELET VOLUME 7.2 FL (7.4-10.4); PLATELET COUNT 497 /CUMM (130-400); RBC DISTRIBUTION WIDTH 11.7 % (11.5-14.5); RED BLOOD CELL CT 2.99 /CUMM (4.70-6.10)
[2017-08-27 10:23] LABS: WHITE BLOOD CELL COUNT 12.9 /CUMM (4.8-10.8)
--- NOTE | 2017-08-27 11:59 | PN- Pulmonary ---
Subjective HPI/Critical Care Issues: pt seen and examined feeling well awaiting ECHO this am on oxygen Objective Current Medications: Current Medications Sig/Mary Carmen Start time Last Medication Dose Route Stop Time Status Admin Acetaminophen 325 MG Q6 PRN 08/26 1700 AC PO Albuterol Sulfate 3 ML Q4P PRN 08/26 2200 AC 08/26 INH 2145 Albuterol Sulfate 3 ML ONCE ONE 08/26 1415 DC 08/26 INH 08/26 1416 1425 Aspirin 81 MG DAILY 08/27 1000 AC 08/27 PO 0949 Atorvastatin Calcium 20 MG 1700 08/27 1700 AC PO Azithromycin 500 MG DAILY 08/27 1000 AC 08/27 Dextrose/Water 250 ML IV 0945 Azithromycin 500 MG ONCE ONE 08/26 1415 DC 08/26 Dextrose/Water 250 ML IV 08/26 1514 1427 Ceftriaxone Sodium 1,000 MG DAILY 08/27 1000 AC 08/27 IV 0946 Ceftriaxone Sodium 0 .STK-MED ONE 08/26 1435 DC .ROUTE Ceftriaxone Sodium 1,000 MG ONCE ONE 08/26 1415 DC 08/26 IV 08/26 1416 1436 Clonazepam 0.5 MG TID PRN 08/26 2200 AC PO 09/02 2159 Diltiazem HCl 120 MG DAILY 08/27 1000 AC 08/27 PO 0948 Dipyridamole/Aspirin 1 CAP BID 08/26 2200 CAN PO Finasteride 5 MG DAILY 08/27 1000 AC 08/27 PO 0947 Heparin Sodium 5,000 UNIT Q8 08/26 1659 AC 08/27 (Porcine) SC 0655 Ipratropium [place] 2.5 ML ONCE ONE 08/26 1415 DC 08/26 INH 08/26 1416 1425 Isosorbide 60 MG DAILY 08/27 1000 AC 08/27 Mononitrate PO 0949 Latanoprost 1 GTT AT BEDTIME 08/26 2200 AC 08/26 OPH 2124 Methylprednisolone 40 MG Q8 08/26 2200 CAN IV Methylprednisolone 0 .STK-MED ONE 08/26 1425 DC .ROUTE Methylprednisolone 125 MG ONCE ONE 08/26 1415 DC 08/26 IV 08/26 1416 1427 Omeprazole 40 MG BID 08/27 1000 AC 08/27 PO 0947 Omeprazole 40 MG DAILY AC 08/27 0700 DC PO Prednisone 60 MG DAILY 08/26 1940 AC 08/27 PO 0948 Sodium Chloride 1,000 ML Q13H 08/26 1845 AC 08/27 IV 08/27 Tamsulosin HCl 0.4 MG DAILY 08/27 1000 AC 08/27 PO 0948 Vancomycin HCl 1,000 MG ONCE ONE 08/26 194 DC 08/26 Dextrose/Water 250 ML IV 08/26 Vital Signs & I&O Last 24 Hrs of Vitals and I&O: Vital Signs Date Time Temp Pulse Resp B/P B/P Pulse O2 O2 Flow FiO2 Mean Ox Delivery Rate 08/27 0949 97.4 87 20 138/68 08/27 0948 97.4 87 20 138/68 08/27 0800 Nasal 1.0L Cannula 08/27 0703 97.4 87 20 138/68 95 Nasal 2.0L Cannula 08/27 0000 93 Nasal 1.0L Cannula 08/26 2237 Nasal 2.0L Cannula 08/26 2237 97.7 89 21 140/60 96 Nasal Cannula 08/26 1814 97.6 93 21 142/64 97 Nasal Cannula 08/26 1805 96 Nasal 3.5L Cannula 08/26 1610 97.8 89 22 122/57 95 Nasal 4.0L Cannula 08/26 1426 Nasal Cannula 08/26 1357 96 Nasal 4.0L Cannula 08/26 1331 97.7 104 22 140/65 97 Nasal 4.0L Cannula Intake & Output 08/27 1600 08/27 0800 08/27 0000 Intake Total 500 1150 Output Total 700 250 Balance -200 900 Intake, IV 500 550 Intake, Oral 0 600 Output, Urine 700 250 Patient 152 lb 143 lb Weight Weight Reported by Patient Measurement Method Exam Other Physical Findings: gen awake and alert heent ncat cvs s1, s2 lungs rare rhonchi abd soft bs+ ext without edema Results Last 24 Hrs of Lab Results: Laboratory Tests 08/27/17 0801: Anion Gap 14, Estimated GFR 30 L, BUN/Creatinine Ratio 21.0, CBC w Diff NO MAN DIFF REQ, RBC 2.99 L, MCV 95.5 H, MCH 31.5 H, MCHC 33.0, RDW 11.7, MPV 7.2 L , Gran % 93.5 H, Lymphocytes % 4.7 L, Monocytes % 1.7, Eosinophils % 0, Basophils % 0.1, Absolute Granulocytes 12.0 H, Absolute Lymphocytes 0.6 L, Absolute Monocytes 0.2, Absolute Eosinophils 0, Absolute Basophils 0 08/26/172114: Aldolase Pending, Angiotensin Convert Enz Pending, Carcinoembryonic Ag Pending, CA 19-9 Antigen Pending, ANCA Pending, SS-A/Ro Antibody Pending, SS-B/La Antibody Pending, Ref Lab Test Result Pending 08/26/17 1915: TB Test (QFT) Mitogen Pending, TB Test Mitogen - Nil Pending, TB Test Antigen - Nil Pending, TB Test (QFT) Interp Pending 08/26/17 1659: Lactic Acid Cancelled 08/26/17 1401: Rheum Factor Semi-Quant < 8.6 08/26/17 1401: Anion Gap 14, Estimated GFR 24 L, BUN/Creatinine Ratio 17.7, Glucose 125 H, Lactic Acid 1.4, Calcium 9.7, Total Bilirubin 0.5, AST 28, ALT 44, Alkaline Phosphatase 110, Creatine Kinase 50 L, Troponin I < 0.01, C-Reactive Prot, Quant 7.6 H, Gkx-K-Hccehdcscqw Pept 580 H, Total Protein 6.3, Albumin 3.2 L, Globulin 3.1, Albumin/Globulin Ratio 1.0 L, Total PSA 0.37, PT 13.5 H, INR 1.24 H, APTT 29, CBC w Diff NO MAN DIFF REQ, RBC 3.13 L, MCV 94.8 H, MCH 31.4 H, MCHC 33.1, RDW 11.6, MPV 6.9 L, Gran % 87.6 H, Lymphocytes % 5.2 L, Monocytes % 5.6, Eosinophils % 1.5, Basophils % 0.1, Absolute Granulocytes 17.6 H, Absolute Lymphocytes 1.0 L, Absolute Monocytes 1.1 H, Absolute Eosinophils 0.3, Absolute Basophils 0, ESR Westergren 59 H, JULI Titer Pending, Anti-Nuclear Antibody Pending, HIV 1&2 Ab Western Blot NONREACTIVE 08/26/17 1359: Lactic Acid Cancelled Impression/Plan Impression/Plan Impression/Plan: Impression 87 year old man * ILD, unclear etiology at this time, differential is broad, tests are pending * PVD, IHD * Barretts esophagus Plan -f/u all serologies and requested studies -f/u ECHO -cont steroids -ppt -cont zithromax -more invasive testing can be a consdieration next week DVT prophylaxis at all times
[2017-08-27 14:51] VITALS: BP 130/76
--- NOTE | 2017-08-27 16:39 | PN- Att Addend ---
Attending Addendum Attending Brief Note Patient comfortable in bed. at the bedside Vital signs are stable afebrile no major changes on physical. Admitted with is diffuse lung disease weight loss cough breath sputum production Dr. Escobedo's input and recommendations. [place] of tests were ordered. Aggrenox was discontinued in Aspirin 81 Mg in Anticipation of Diagnostic Procedure like a Bronchoscopy or an Open Lung Biopsy. Adis Escobedo MD Discussed This with the Family 24 TOTALS 08/27 0000 08/26 0000 Intake Total 1150 Output Total 250 Balance 900 Intake, IV 550 Intake, Oral 600 Output, Urine 250 Patient 143 lb Weight Weight Reported by Patient Measurement Method Current Medications Sig/Mary Carmen Start time Last Medication Dose Route Stop Time Status Admin Acetaminophen 325 MG Q6 PRN 08/26 1700 AC PO Albuterol Sulfate 3 ML Q4P PRN 08/26 2200 AC 08/26 INH 2145 Aspirin 81 MG DAILY 08/27 1000 AC 08/27 PO 0949 Atorvastatin Calcium 20 MG 1700 08/27 1700 AC PO Azithromycin 500 MG DAILY 08/27 1000 AC 08/27 Dextrose/Water 250 ML IV 0945 Ceftriaxone Sodium 1,000 MG DAILY 08/27 1000 AC 08/27 IV 0946 Clonazepam 0.5 MG BID PRN 08/27 1421 AC PO 09/03 1420 Clonazepam 0.5 MG TID PRN 08/26 2200 DC PO 09/02 2159 Diltiazem HCl 120 MG DAILY 08/27 1000 AC 08/27 PO 0948 Dipyridamole/Aspirin 1 CAP BID 08/26 2200 CAN PO Finasteride 5 MG DAILY 08/27 1000 AC 08/27 PO 0947 Heparin Sodium 5,000 UNIT Q8 08/26 1659 AC 08/27 (Porcine) SC 1411 Isosorbide 60 MG DAILY 08/27 1000 AC 08/27 Mononitrate PO 0949 Latanoprost 1 GTT AT BEDTIME 08/26 2200 AC 08/26 OPH 2124 Methylprednisolone 40 MG Q8 08/26 2200 CAN IV Omeprazole 40 MG BID 08/27 1000 AC 08/27 PO 0947 Omeprazole 40 MG DAILY AC 08/27 0700 DC PO Prednisone 60 MG DAILY 08/26 1940 AC 08/27 PO 0948 Sodium Chloride 1,000 ML Q13H 08/26 1845 AC 08/27 IV 08/27 2044 0949 Tamsulosin HCl 0.4 MG DAILY 08/27 1000 AC 08/27 PO 0948 Vancomycin HCl 1,000 MG ONCE ONE 08/26 194 DC 08/26 Dextrose/Water 250 ML IV 08/26 Laboratory Tests 08/27/17 0801: Anion Gap 14, Estimated GFR 30 L, BUN/Creatinine Ratio 21.0, CBC w Diff NO MAN DIFF REQ, RBC 2.99 L, MCV 95.5 H, MCH 31.5 H, MCHC 33.0, RDW 11.7, MPV 7.2 L , Gran % 93.5 H, Lymphocytes % 4.7 L, Monocytes % 1.7, Eosinophils % 0, Basophils % 0.1, Absolute Granulocytes 12.0 H, Absolute Lymphocytes 0.6 L, Absolute Monocytes 0.2, Absolute Eosinophils 0, Absolute Basophils 0 08/26/172114: Aldolase Pending, Angiotensin Convert Enz Pending, Carcinoembryonic Ag Pending, CA 19-9 Antigen Pending, ANCA Pending, SS-A/Ro Antibody Pending, SS-B/La Antibody Pending, Ref Lab Test Result Pending 08/26/17 1915: TB Test (QFT) Mitogen Pending, TB Test Mitogen - Nil Pending, TB Test Antigen - Nil Pending, TB Test (QFT) Interp Pending 08/26/17 1659: Lactic Acid Cancelled 08/26/17 1401: Rheum Factor Semi-Quant < 8.6 08/26/17 1401: Anion Gap 14, Estimated GFR 24 L, BUN/Creatinine Ratio 17.7, Glucose 125 H, Lactic Acid 1.4, Calcium 9.7, Total Bilirubin 0.5, AST 28, ALT 44, Alkaline Phosphatase 110, Creatine Kinase 50 L, Troponin I < 0.01, C-Reactive Prot, Quant 7.6 H, Elx-O-Cyfnpfrerkt Pept 580 H, Total Protein 6.3, Albumin 3.2 L, Globulin 3.1, Albumin/Globulin Ratio 1.0 L, Total PSA 0.37, PT 13.5 H, INR 1.24 H, APTT 29, CBC w Diff NO MAN DIFF REQ, RBC 3.13 L, MCV 94.8 H, MCH 31.4 H, MCHC 33.1, RDW 11.6, MPV 6.9 L, Gran % 87.6 H, Lymphocytes % 5.2 L, Monocytes % 5.6, Eosinophils % 1.5, Basophils % 0.1, Absolute Granulocytes 17.6 H, Absolute Lymphocytes 1.0 L, Absolute Monocytes 1.1 H, Absolute Eosinophils 0.3, Absolute Basophils 0, ESR Westergren 59 H, JULI Titer Pending, Anti-Nuclear Antibody Pending, HIV 1&2 Ab Western Blot NONREACTIVE 08/26/17 1359: Lactic Acid Cancelled Microbiology 08/26 2149 URINE ROUT: Legionella Antigen - COMP 08/26 2149 URINE ROUT: Streptococcus pneumoniae Antigen (M - COMP 08/27 2119 NASOPHARYN: Influenza Virus A & B Rapid Smear - COMP Microbiology Date/Time Procedure - Status Source Growth 08/27 2239 AFB Culture with PCR Identification - RES LOWER RESP 08/27 2239 AFB Smear Concentration - RES LOWER RESP 08/27 2239 Respiratory Culture - CAN LOWER RESP Cancelled: NUMBER OF SQUAMOUS CELLS INDICATES POOR QUALITY SPECIMEN 08/27 2239 Gram Stain - CAN LOWER RESP Cancelled: NUMBER OF SQUAMOUS CELLS INDICATES POOR QUALITY SPECIMEN 08/26 2149 Legionella Antigen - COMP URINE ROUT 08/26 2149 Streptococcus pneumoniae Antigen (M - COMP URINE ROUT 08/27 2119 Influenza Virus A & B Rapid Smear - COMP NASOPHARYN 08/26 2114 Blood Culture - RES BLOOD 08/26 2029 Blood Culture - RES BLOOD 08/27 1999 Surveillance Culture - RECD UPPER RESP Vital Signs Date Time Temp Pulse Resp B/P B/P Pulse O2 O2 Flow FiO2 Mean Ox Delivery Rate 08/27 1451 98.5 80 20 130/76 90 08/27 1218 94 Nasal 2.0L Cannula 08/27 0949 97.4 87 20 138/68 08/27 0948 97.4 87 20 138/68 08/27 0800 Nasal 1.0L Cannula 08/27 0703 97.4 87 20 138/68 95 Nasal 2.0L Cannula 08/27 0000 93 Nasal 1.0L Cannula 08/26 2236 Nasal 2.0L Cannula 08/26 2236 97.7 89 21 140/60 96 Nasal Cannula 08/26 1814 97.6 93 21 142/64 97 Nasal Cannula 08/26 1805 96 Nasal 3.5L Cannula
[2017-08-27 22:26] VITALS: BP 116/60
[2017-08-28 06:34] VITALS: BP 132/60
--- NOTE | 2017-08-28 08:25 | PN- Housestaff ---
Subjective Follow-up For: Dyspnea Acute on chronic kidney injury Subjective: No complaints or acute events overnight Review of Systems Constitutional: Reports: see HPI. Objective Last 24 Hrs of Vital Signs/I&O Vital Signs Date Time Temp Pulse Resp B/P B/P Pulse O2 O2 Flow FiO2 Mean Ox Delivery Rate 08/28 0946 97.2 78 20 132/60 08/28 0945 97.2 78 20 132/60 08/28 0800 Nasal 2.0L Cannula 08/28 0634 97.2 78 20 132/60 95 Nasal 2.0L Cannula 08/28 0000 94 Nasal 2.0L Cannula 08/27 2226 98.0 93 18 116/60 93 Nasal Cannula 08/27 1451 98.5 80 20 130/76 90 08/27 1218 94 Nasal 2.0L Cannula Intake & Output 08/28 1600 08/28 0800 08/28 0000 Intake Total 825 465 Output Total 275 300 Balance 550 165 Intake, IV 525 225 Intake, Oral 300 240 Number 0 Bowel Movements Output, Urine 275 300 Patient 152 lb Weight Physical Exam General Appearance: Alert, Oriented X3, Cooperative, ON 2LNC Cardiovascular: Regular Rate, Normal S1, Normal S2, No Murmurs Lungs: BL wheezing, rhonchi Abdomen: Normal Bowel Sounds, Soft, No Tenderness Extremities: No Edema Current Medications: Current Medications Sig/Mary Carmen Start time Last Medication Dose Route Stop Time Status Admin Acetaminophen 325 MG Q6 PRN 08/26 1700 AC PO Albuterol Sulfate 3 ML Q4P PRN 08/26 2200 AC 08/26 INH 2145 Aspirin 81 MG DAILY 08/27 1000 AC 08/28 PO 0946 Atorvastatin Calcium 20 MG 1700 08/27 1700 AC 08/27 PO 1701 Azithromycin 500 MG DAILY 08/27 1000 AC 08/28 Dextrose/Water 250 ML IV 0944 Ceftriaxone Sodium 1,000 MG DAILY 08/27 1000 AC 08/28 IV 0945 Clonazepam 0.5 MG BID PRN 08/27 1421 AC PO 09/03 1420 Clonazepam 0.5 MG TID PRN 08/26 2200 DC PO 09/02 2159 Diltiazem HCl 120 MG DAILY 08/27 1000 AC 08/28 PO 0946 Finasteride 5 MG DAILY 08/27 1000 AC 08/28 PO 0945 Heparin Sodium 5,000 UNIT Q8 08/26 1659 AC 08/28 (Porcine) SC 0610 Isosorbide 60 MG DAILY 08/27 1000 AC 08/28 Mononitrate PO 0946 Latanoprost 1 GTT AT BEDTIME 08/26 2199 AC 08/27 OPH 2131 Melatonin 5 MG AT BEDTIME 08/27 2199 AC 08/27 PO 2211 Omeprazole 40 MG BID 08/27 1000 AC 08/28 PO 0947 Prednisone 60 MG DAILY 08/26 1940 AC 08/28 PO 0946 Sodium Chloride 1,000 ML Q13H 08/26 1845 DC 08/27 IV 08/28 2043 0949 Tamsulosin HCl 0.4 MG DAILY 08/27 1000 AC 08/28 PO 0945 Last 24 Hrs of Lab/Jose Results Last 24 Hrs of Labs/Mics: Laboratory Tests 08/28/17 0758: Anion Gap 13, Estimated GFR 29 L, BUN/Creatinine Ratio 23.6, CBC w Diff MAN DIFF ORDERED, RBC 3.00 L, MCV 96.2 H, MCH 31.6 H, MCHC 32.8 L, RDW 12.1, MPV 7.2 L, Gran % 91.1 H, Lymphocytes % 3.2 L, Monocytes % 5.5, Eosinophils % 0, Basophils % 0.2, Absolute Granulocytes 21.1 H, Segmented Neutrophils Pending, Absolute Lymphocytes 0.7 L, Absolute Monocytes 1.3 H, Absolute Eosinophils 0, Absolute Basophils 0.1 Assessment/Plan Assessment: Mr. 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 infection Continue Prednisone 60 mg Pulm recommendations appreciated Diet: Regular DVT ppx: Heparin Code: FULL Problem List: 1. JA (acute kidney injury) 2. Dyspnea Pain Ratin Pain Location: NA Pain Goal: Remain pain free Pain Plan: NA Tomorrow's Labs & Rationales: CBC for leukocytosis, thrombocytosis BEP for renal
[2017-08-28 08:59] LABS: ABSOLUTE BASOPHIL COUNT 0.1 /CUMM (0.0-0.2); ABSOLUTE EOSINOPHIL COUNT 0 /CUMM (0.0-0.7); ABSOLUTE GRANULOCYTE CT 21.1 /CUMM (1.4-6.5); ABSOLUTE LYMPH COUNT 0.7 /CUMM (1.2-3.4); ABSOLUTE MONOCYTE COUNT 1.3 /CUMM (0.10-0.60); BASOPHIL % 0.2 % (0.0-2.0); EOSINOPHIL % 0 % (0-5); GRANULOCYTE % 91.1 % (42.2-75.2); HEMATOCRIT 28.9 % (42-52); MEAN CORPUSCULAR HGB 31.6 PG (27.0-31.0); MEAN CORPUSCULAR HGB CONC 32.8 G/DL (33.0-37.0); MEAN CORPUSCULAR VOLUME 96.2 FL (80.0-94.0); MEAN PLATELET VOLUME 7.2 FL (7.4-10.4); PLATELET COUNT 538 /CUMM (130-400); RBC DISTRIBUTION WIDTH 12.1 % (11.5-14.5)
[2017-08-28 09:29] LABS: WHITE BLOOD CELL COUNT 23.2 /CUMM (4.8-10.8)
--- NOTE | 2017-08-28 12:21 | PN- Pulmonary ---
Subjective HPI/Critical Care Issues: pt seen and examined overall feeling well leukocytosis this am on room air no new complaints Objective Current Medications: Current Medications Sig/Mary Carmen Start time Last Medication Dose Route Stop Time Status Admin Acetaminophen 325 MG Q6 PRN 08/26 1700 AC PO Albuterol Sulfate 3 ML Q4P PRN 08/26 2200 AC 08/26 INH 2145 Aspirin 81 MG DAILY 08/27 1000 AC 08/28 PO 0946 Atorvastatin Calcium 20 MG 1700 08/27 1700 AC 08/27 PO 1701 Azithromycin 500 MG DAILY 08/27 1000 AC 08/28 Dextrose/Water 250 ML IV 0944 Ceftriaxone Sodium 1,000 MG DAILY 08/27 1000 AC 08/28 IV 0945 Clonazepam 0.5 MG BID PRN 08/27 1421 AC PO 09/03 1420 Clonazepam 0.5 MG TID PRN 08/26 2200 DC PO 09/02 2159 Diltiazem HCl 120 MG DAILY 08/27 1000 AC 08/28 PO 0946 Finasteride 5 MG DAILY 08/27 1000 AC 08/28 PO 0945 Heparin Sodium 5,000 UNIT Q8 08/26 1659 AC 08/28 (Porcine) SC 0610 Isosorbide 60 MG DAILY 08/27 1000 AC 08/28 Mononitrate PO 0946 Latanoprost 1 GTT AT BEDTIME 08/26 2200 AC 08/27 OPH 2131 Melatonin 5 MG AT BEDTIME 08/27 2200 AC 08/27 PO 2211 Omeprazole 40 MG BID 08/27 1000 AC 08/28 PO 0947 Prednisone 60 MG DAILY 08/26 1940 AC 08/28 PO 0946 Sodium Chloride 1,000 ML Q13H 08/26 1845 DC 08/27 IV 08/27 2044 0949 Tamsulosin HCl 0.4 MG DAILY 08/27 1000 AC 08/28 PO 0945 Vital Signs & I&O Last 24 Hrs of Vitals and I&O: Vital Signs Date Time Temp Pulse Resp B/P B/P Pulse O2 O2 Flow FiO2 Mean Ox Delivery Rate 08/28 0946 97.2 78 20 132/60 08/28 0945 97.2 78 20 132/60 08/28 0800 Nasal 2.0L Cannula 08/28 0634 97.2 78 20 132/60 95 Nasal 2.0L Cannula 08/28 0000 94 Nasal 2.0L Cannula 03/31 2226 98.0 93 18 116/60 93 Nasal Cannula 08/27 1451 98.5 80 20 130/76 90 Intake & Output 08/28 1600 08/28 0800 08/28 0000 Intake Total 825 465 Output Total 275 300 Balance 550 165 Intake, IV 525 225 Intake, Oral 300 240 Number 0 Bowel Movements Output, Urine 275 300 Patient 152 lb Weight Exam Other Physical Findings: gen awake and alert heent ncat cvs s1, s2 lungs rare rhonchi abd soft bs+ ext without edema Results Last 24 Hrs of Lab Results: Laboratory Tests 08/28/17 0758: Anion Gap 13, Estimated GFR 29 L, BUN/Creatinine Ratio 23.6, CBC w Diff MAN DIFF ORDERED, RBC 3.00 L, MCV 96.2 H, MCH 31.6 H, MCHC 32.8 L, RDW 12.1, MPV 7.2 L, Gran % 91.1 H, Lymphocytes % 3.2 L, Monocytes % 5.5, Eosinophils % 0, Basophils % 0.2, Absolute Granulocytes 21.1 H, Absolute Lymphocytes 0.7 L, Absolute Monocytes 1.3 H, Absolute Eosinophils 0, Absolute Basophils 0.1, Platelet Estimate VERIFIED BY SMEAR, Poikilocytosis 1+ Impression/Plan Impression/Plan Impression/Plan: Impression 87 year old man * ILD, unclear etiology at this time, differential is broad, tests are pending * PVD, IHD * Barretts esophagus * leukocytosis likely steroid induced Plan -pt on zithromax and ceftriaxone, if leukocytosis persists, consider ID input - at this point can be steroid induced -f/u all serologies and requested studies -f/u ECHO -cont steroids -more invasive testing can be a consdieration next week DVT prophylaxis at all times
--- NOTE | 2017-08-28 14:23 | PN- Att Addend ---
Attending Addendum Attending Brief Note Patient feeling a little better, slept for the first time last night after a long time. Vital signs are stable no fever. No major changes on physical. Labs BUN and creatinine slightly output. BUN 52 creatinine 2.2 and his white count is also up to 23,200 but the patient has been on steroids, globulin 9.5 hematocrit 28.9, platelet count 538,000. On daughter special tests are not back. We will continue present treatment follow Dr. Escobedo's recommendations. 24 TOTALS 08/28 0000 08/27 0000 Intake Total 2465 1150 Output Total 1000 250 Balance 1465 900 Intake, IV 1425 550 Intake, Oral 1040 600 Number 1 Bowel Movements Output, Urine 1000 250 Patient 152 lb 143 lb Weight Weight Reported by Patient Measurement Method Current Medications Sig/Mary Carmen Start time Last Medication Dose Route Stop Time Status Admin Acetaminophen 325 MG Q6 PRN 08/26 1700 AC PO Albuterol Sulfate 3 ML Q4P PRN 08/26 2200 AC 08/26 INH 2145 Aspirin 81 MG DAILY 08/27 1000 AC 08/28 PO 0946 Atorvastatin Calcium 20 MG 1700 08/27 1700 AC 08/27 PO 1701 Azithromycin 500 MG DAILY 08/27 1000 AC 08/28 Dextrose/Water 250 ML IV 0944 Ceftriaxone Sodium 1,000 MG DAILY 08/27 1000 AC 08/28 IV 0945 Clonazepam 0.5 MG BID PRN 08/27 1421 AC PO 09/03 1420 Diltiazem HCl 120 MG DAILY 08/27 1000 AC 08/28 PO 0946 Finasteride 5 MG DAILY 08/27 1000 AC 08/28 PO 0945 Heparin Sodium 5,000 UNIT Q8 08/26 1659 AC 08/28 (Porcine) SC 0610 Isosorbide 60 MG DAILY 08/27 1000 AC 08/28 Mononitrate PO 0946 Latanoprost 1 GTT AT BEDTIME 08/26 2200 AC 08/27 OPH 2131 Melatonin 5 MG AT BEDTIME 08/27 2200 AC 08/27 PO 2211 Omeprazole 40 MG BID 08/27 1000 AC 08/28 PO 0947 Prednisone 60 MG DAILY 08/26 1940 AC 08/28 PO 0946 Sodium Chloride 1,000 ML Q13H 08/26 1845 DC 08/27 IV 08/27 2044 0949 Tamsulosin HCl 0.4 MG DAILY 08/27 1000 AC 08/28 PO 0945 Laboratory Tests 08/28/17 0758: Anion Gap 13, Estimated GFR 29 L, BUN/Creatinine Ratio 23.6, CBC w Diff MAN DIFF ORDERED, RBC 3.00 L, MCV 96.2 H, MCH 31.6 H, MCHC 32.8 L, RDW 12.1, MPV 7.2 L, Gran % 91.1 H, Lymphocytes % 3.2 L, Monocytes % 5.5, Eosinophils % 0, Basophils % 0.2, Absolute Granulocytes 21.1 H, Absolute Lymphocytes 0.7 L, Absolute Monocytes 1.3 H, Absolute Eosinophils 0, Absolute Basophils 0.1, Platelet Estimate VERIFIED BY SMEAR, Poikilocytosis 1+ 08/27/17 0801: Anion Gap 14, Estimated GFR 30 L, BUN/Creatinine Ratio 21.0, CBC w Diff NO MAN DIFF REQ, RBC 2.99 L, MCV 95.5 H, MCH 31.5 H, MCHC 33.0, RDW 11.7, MPV 7.2 L , Gran % 93.5 H, Lymphocytes % 4.7 L, Monocytes % 1.7, Eosinophils % 0, Basophils % 0.1, Absolute Granulocytes 12.0 H, Absolute Lymphocytes 0.6 L, Absolute Monocytes 0.2, Absolute Eosinophils 0, Absolute Basophils 0 08/26/172114: Aldolase Pending, Angiotensin Convert Enz Pending, Carcinoembryonic Ag Pending, CA 19-9 Antigen Pending, ANCA Pending, SS-A/Ro Antibody Pending, SS-B/La Antibody Pending, Ref Lab Test Result Pending 08/26/17 1915: TB Test (QFT) Mitogen Pending, TB Test Mitogen - Nil Pending, TB Test Antigen - Nil Pending, TB Test (QFT) Interp Pending 08/26/17 1659: Lactic Acid Cancelled Microbiology 08/26 2149 URINE ROUT: Legionella Antigen - COMP 08/26 2149 URINE ROUT: Streptococcus pneumoniae Antigen (M - COMP 08/27 2119 NASOPHARYN: Influenza Virus A & B Rapid Smear - COMP 08/27 1999 UPPER RESP: Surveillance Culture - COMP Vital Signs Date Time Temp Pulse Resp B/P B/P Pulse O2 O2 Flow FiO2 Mean Ox Delivery Rate 08/28 945 97.2 78 20 132/60 04/01 0945 97.2 78 20 132/60 08/28 0800 Nasal 2.0L Cannula 08/28 0634 97.2 78 20 132/60 95 Nasal 2.0L Cannula 08/28 0000 94 Nasal 2.0L Cannula 08/27 2226 98.0 93 18 116/60 93 Nasal Cannula 08/27 1451 98.5 80 20 130/76 90
[2017-08-28 15:14] VITALS: BP 130/70
[2017-08-28 21:35] VITALS: BP 132/62
[2017-08-29 06:20] VITALS: BP 136/65
[2017-08-29 08:48] LABS: ABSOLUTE BASOPHIL COUNT 0 /CUMM (0.0-0.2); ABSOLUTE EOSINOPHIL COUNT 0 /CUMM (0.0-0.7); ABSOLUTE GRANULOCYTE CT 16.5 /CUMM (1.4-6.5); ABSOLUTE LYMPH COUNT 1.2 /CUMM (1.2-3.4); BASOPHIL % 0.1 % (0.0-2.0); EOSINOPHIL % 0 % (0-5); HEMATOCRIT 29.2 % (42-52); MEAN CORPUSCULAR HGB 31.7 PG (27.0-31.0); MEAN CORPUSCULAR HGB CONC 33.3 G/DL (33.0-37.0); MEAN CORPUSCULAR VOLUME 95.2 FL (80.0-94.0); PLATELET COUNT 568 /CUMM (130-400); RBC DISTRIBUTION WIDTH 12.2 % (11.5-14.5); RED BLOOD CELL CT 3.07 /CUMM (4.70-6.10); WHITE BLOOD CELL COUNT 18.7 /CUMM (4.8-10.8)
--- NOTE | 2017-08-29 08:57 | PN- Housestaff ---
Subjective Follow-up For: Acute hypoxic respiratory failure 2/2 to acute interstitial pneumonia Subjective: Patient seen and examined. Resting comfortably in the chair. Reports blood in urine Otherwise no complaints. Denies fevers and chills, nausea vomiting or palpitations or shortness of breath. He is also hard of hearing Decreased NC and try on RA, check saturation remained stable It is possible that patient has been having blood in the urine without noticing for a while he has macular degeneration and is unable to see well this is the first time he has noticed. Review of Systems Constitutional: Reports: see HPI. Objective Last 24 Hrs of Vital Signs/I&O Vital Signs Date Time Temp Pulse Resp B/P B/P Pulse O2 O2 Flow FiO2 Mean Ox Delivery Rate 08/29 1046 92 142/60 08/29 1016 92 142/68 08/29 0620 98.3 83 18 136/65 93 Nasal Cannula 08/29 0000 Nasal 2.0L Cannula 08/28 2135 98.1 76 20 132/62 97 Nasal 2.0L Cannula 08/28 1514 98.0 83 20 130/70 95 Intake & Output 08/29 1600 08/29 0800 08/29 0000 Intake Total 400 400 Output Total 525 Balance -125 400 Intake, Oral 400 400 Output, Urine 525 Patient 157 lb Weight Weight Bed scale Measurement Method Physical Exam General Appearance: Alert, Oriented X3, Cooperative HEENT: PERRLA Cardiovascular: Normal S1, Normal S2, systolic murmur Lungs: wheezes and b/l crackels Abdomen: Soft, No Tenderness Neurological: Normal Speech Extremities: No Cyanosis Current Medications: Current Medications Sig/Mary Carmen Start time Last Medication Dose Route Stop Time Status Admin Acetaminophen 325 MG Q6 PRN 08/26 1700 AC PO Albuterol Sulfate 3 ML Q4P PRN 08/26 2200 AC 08/26 INH 2145 Aspirin 81 MG DAILY 08/27 1000 AC 08/29 PO 1015 Atorvastatin Calcium 20 MG 1700 08/27 1700 AC 08/28 PO 1724 Azithromycin 500 MG DAILY 08/27 1000 AC 08/29 Dextrose/Water 250 ML IV 1026 Ceftriaxone Sodium 1,000 MG DAILY 08/27 1000 AC 08/29 IV 1034 Clonazepam 0.5 MG BID PRN 08/27 1421 AC PO 09/03 1420 Diltiazem HCl 120 MG DAILY 08/27 1000 AC 08/29 PO 1015 Finasteride 5 MG DAILY 08/27 1000 AC 08/29 PO 1018 Heparin Sodium 5,000 UNIT Q8 08/26 1659 AC 08/29 (Porcine) SC 0556 Isosorbide 60 MG DAILY 08/27 1000 AC 08/29 Mononitrate PO 1046 Latanoprost 1 GTT AT BEDTIME 08/26 2200 AC 08/28 OPH 2135 Melatonin 5 MG AT BEDTIME 08/27 2200 AC 08/28 PO 2134 Omeprazole 40 MG BID 08/27 1000 AC 08/29 PO 1017 Patient Medication 1 ED ONE ONE 08/29 1100 [facility] 08/29 1101 Prednisone 60 MG DAILY 08/26 1940 AC 08/29 PO 1016 Tamsulosin HCl 0.4 MG DAILY 08/27 1000 AC 08/29 PO 1016 Last 24 Hrs of Lab/Jose Results Last 24 Hrs of Labs/Mics: Laboratory Tests 08/29/17 0825: Anion Gap 14, Estimated GFR 32 L, BUN/Creatinine Ratio 26.0 H, CBC w Diff NO MAN DIFF REQ, RBC 3.07 L, MCV 95.2 H, MCH 31.7 H, MCHC 33.3, RDW 12.2, MPV 7.0 L, Gran % 88.4 H, Lymphocytes % 6.4 L, Monocytes % 5.1, Eosinophils % 0, Basophils % 0.1, Absolute Granulocytes 16.5 H, Absolute Lymphocytes 1.2, Absolute Monocytes 1.0 H, Absolute Eosinophils 0, Absolute Basophils 0 Assessment/Plan Assessment: Patient is 87-year-old male with remote history of tobacco abuse(quit 20+ years ago), 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 Acute hypoxic respiratory failure: The cause of the respiratory failure is unclear at this point. Given multiple bilateral reticulonodular opacities differentials are white including tuberculosis, hypersensitivity pneumonitis, sarcoidosis?. malignancy? Lymphangitic carcinomatosis, acute interstitial pneumonia PE has been ruled out with a negative VQ scan. No consolidation on chest x-ray. Need to rule out aspiration pneumonia -Monitor fever and WBC curve patient remains afebrile and WBC count of 18.7 can be attributed to steroids -Prednisone 40 MG daily -Continue azithromycin, Change ceftriaxone to PO Ceftin -Blood and sputum cultures -Afbx 3, QuantiFERON test to rule out TB -Repeat CXR -ESR, CRP elevated, CPK 50, RF WNL -CEA, CA 19-9, Aldolase, DENISE pending -JULI, ANCA pending -Sjogren's antibody panel, anti-Kiarra 1 antibody pending -Myositis antibody panel sent out to [employer] #Hematuria Patient is complaining of hematuria -Continue to monitor -send urine for cytology -Subcutaneous heparin for DVT prophylaxis on hold -Aspirin on hold #Thrombocytosis was initially thought to be reactive but is continuously uptrending pointing to bone marrow involvement -Continue to monitor #Acute on chronic kidney injury-resolved -Continue to monitor creatinine, back to baseline -Avoid nephrotoxins #History of coronary artery disease: Multiple cardic catheterizations in the past. -Continue home medications Cardizem, Imdur, Aggrenox and atorvastatin -Echocardiogram read is pending -proBNP 580 -clopidogrel on hold in case if biopsy needed -Asprin on hold in setting of hematuria #History of BPH -continue Flomax Heart healthy/DVT prophylaxis subcutaneous heparin on hold in setting of hematuria/FC Problem List: 1. Respiratory failure Pain Ratin Pain Location: n/a Pain Goal: Pain 4 or less Pain Plan: prn Tomorrow's Labs & Rationales: cbc
[2017-08-29 09:53] LABS: GRANULOCYTE % 88.4 % (42.2-75.2)
--- NOTE | 2017-08-29 10:07 | ECHOCARDIOGRAM REPORT ---
JAVIER CASTRO Age: 87 : 1930 Gender: M Exam Date: 08/27/2017 10:56 Exam Location: [place] Ht (in): 66 Wt (lb): 152 BSA: 1.80 BP: 138 / 68 Ordering Physician: Alexa White MD Referring Physician: Jose Mcmahon MD Technologist: Yoana Welch [facility] Room Number: [id number] Indications: SHORTNESS OF BREATH Rhythm: Sinus Technical Quality: technically limited FINDINGS Left Ventricle Normal left ventricular size, with mild left ventricular hypertrophy. Normal systolic function with septal hypokinesis. Normal left ventricular diastolic filling pattern for age. The ejection fraction is visually estimated at 50 %. Right Ventricle The right ventricle is normal in size and function. Right Atrium The right atrium is normal in size. Left Atrium The left atrium is normal in size. The interatrial septum is intact. Mitral Valve The mitral valve moderate posterior annular calcification with normal function. There is mild mitral regurgitation. Aortic Valve Severely sclerotic aortic valve with moderatestenosis. There is mild aortic regurgitation. Tricuspid Valve The tricuspid valve is normal in structure and function. There is trace tricuspid regurgitation. Pulmonary artery systolic pressure is normal. Pulmonic Valve Structurally normal pulmonic valve. There is no pulmonic regurgitation. Pericardium Normal pericardium without effusion. No pleural effusion. Great Vessels Normal aortic root dimension. The aortic arch and great vessels are well seen and are normal. CONCLUSIONS 1. Technically limited study. 2. Low normal EF of 50% with septal hypokinesis. 3. Mild left ventricular hypertrophy. 4. Mild mitral regurgitation. 5. Trace tricuspid regurgitation. 6. Moderate aortic stenosis with mild aortic regurgitation. Chris Patrick M.D. (Electronically Signed) Final Date: 29 August 2017 10:06 MEASUREMENTS (Male / Female) Normal Values 2D ECHO LV Diastolic Diameter PLAX 4.0 cm 4.2 - 5.9 / 3.9 - 5.3 cm LV Systolic Diameter PLAX 2.9 cm 2.1 - 4.0 cm LV Fractional Shortening PLAX 27.5 % 25 - 46 % LV Ejection Fraction 2D Teich 54.0 % IVS Diastolic Thickness 1.3 cm LVPW Diastolic Thickness 1.1 cm LV Relative Wall Thickness 0.6 LVOT Diameter 1.8 cm LA Systolic Diameter LX 3.7 cm 3.0 - 4.0 / 2.7 - 3.8 cm LA Volume 34.0 cm 18 - 58 / 22 - 52 cm Ascending Aorta Diameter 3.3 cm DOPPLER AV Peak Velocity 232.0 cm/s AV Peak Gradient 21.5 mmHg AV Mean Velocity 169.0 cm/s AV Mean Gradient 13.0 mmHg AV Velocity Time Integral 42.0 cm LVOT Peak Velocity 105.0 cm/s LVOT Peak Gradient 4.4 mmHg LVOT Mean Velocity 79.1 cm/s LVOT Mean Gradient 3.0 mmHg LVOT Velocity Time Integral 21.7 cm LVOT Stroke Volume 55.2 cm AV Area Cont Eq vti 1.3 cm AV Area Cont Eq pk 1.2 cm MV Peak Velocity 172.0 cm/s MV Peak Gradient 11.8 mmHg MV Mean Velocity 87.0 cm/s MV Mean Gradient 4.0 mmHg MV PHT Velocity 171.5 cm/s MV Deceleration [place] 1578.5 cm/s MV Pressure Half Time 32.6 ms MV Area PHT 6.7 cm TR Peak Velocity 258.0 cm/s TR Peak Gradient 26.6 mmHg Right Atrial Pressure 10.0 mmHg Pulmonary Artery Systolic Pressu 36.6 mmHg Right Ventricular Systolic Press 36.6 mmHg PV Peak Velocity 109.0 cm/s PV Peak Gradient 4.8 mmHg PV Mean Velocity 79.5 cm/s PV Mean Gradient 3.0 mmHg PV Velocity Time Integral 14.8 cm
--- NOTE | 2017-08-29 13:54 | PN- Pulmonary ---
Subjective HPI/Critical Care Issues: Looks much improved afebrile on steroids no sig sputum Objective Current Medications: Current Medications Sig/Mary Carmen Start time Last Medication Dose Route Stop Time Status Admin Acetaminophen 325 MG Q6 PRN 08/26 1700 AC PO Albuterol Sulfate 3 ML Q4P PRN 08/26 2200 AC 08/26 INH 2145 Aspirin 81 MG DAILY 08/27 1000 DC 08/29 PO 1015 Atorvastatin Calcium 20 MG 1700 08/27 1700 AC 08/28 PO 1724 Azithromycin 500 MG DAILY 08/27 1000 AC 08/29 Dextrose/Water 250 ML IV 1026 Ceftriaxone Sodium 1,000 MG DAILY 08/27 1000 DC 08/29 IV 1034 Cefuroxime Sodium 250 MG Q12 08/30 1000 UNVr PO Clonazepam 0.5 MG BID PRN 08/27 1421 AC PO 09/03 1420 Diltiazem HCl 120 MG DAILY 08/27 1000 AC 08/29 PO 1015 Finasteride 5 MG DAILY 08/27 1000 AC 08/29 PO 1018 Heparin Sodium 5,000 UNIT Q8 08/26 1659 DC 08/29 (Porcine) SC 0556 Isosorbide 60 MG DAILY 08/27 1000 AC 08/29 Mononitrate PO 1046 Latanoprost 1 GTT AT BEDTIME 08/26 2200 AC 08/28 OPH 2135 Melatonin 5 MG AT BEDTIME 08/27 2200 AC 08/28 PO 2134 Omeprazole 40 MG BID 08/27 1000 AC 08/29 PO 1017 Patient Medication 1 ED ONE ONE 08/29 1100 DC Teaching ED 08/29 1101 Prednisone 40 MG DAILY 08/30 1000 AC PO Prednisone 60 MG DAILY 08/26 1940 DC 08/29 PO 1016 Tamsulosin HCl 0.4 MG DAILY 08/27 1000 AC 08/29 PO 1016 Vital Signs & I&O Last 24 Hrs of Vitals and I&O: Vital Signs Date Time Temp Pulse Resp B/P B/P Pulse O2 O2 Flow FiO2 Mean Ox Delivery Rate 08/29 1233 94 Room Air 08/29 1046 92 142/60 08/29 1016 92 142/68 08/29 0620 98.3 83 18 136/65 93 Nasal Cannula 08/29 0000 Nasal 2.0L Cannula 08/28 2135 98.1 76 20 132/62 97 Nasal 2.0L Cannula 08/28 1514 98.0 83 20 130/70 95 Intake & Output 08/29 1600 08/29 0800 08/29 0000 Intake Total 400 400 Output Total 525 Balance -125 400 Intake, Oral 400 400 Output, Urine 525 Patient 157 lb Weight Weight Bed scale Measurement Method Laboratory Tests 08/29 08/29 0825 0600 Chemistry Sodium (137 - 145 mmol/L) 143 Potassium (3.5 - 5.1 mmol/L) 4.2 Chloride (98 - 107 mmol/L) 108 H Carbon Dioxide (22 - 30 mmol/L) 21 L Anion Gap (5 - 16) 14 BUN (9 - 20 mg/dL) 52 H Creatinine (0.7 - 1.2 mg/dL) 2.0 H Estimated GFR (>60 ml/min) 32 L BUN/Creatinine Ratio (7 - 25 %) 26.0 H Hematology CBC w Diff NO MAN DIFF REQ WBC (4.8 - 10.8 /CUMM) 18.7 H RBC (4.70 - 6.10 /CUMM) 3.07 L Hgb (14.0 - 18.0 G/DL) 9.7 L Hct (42 - 52 %) 29.2 L MCV (80.0 - 94.0 FL) 95.2 H MCH (27.0 - 31.0 PG) 31.7 H MCHC (33.0 - 37.0 G/DL) 33.3 RDW (11.5 - 14.5 %) 12.2 Plt Count (130 - 400 /CUMM) 568 H MPV (7.4 - 10.4 FL) 7.0 L Gran % (42.2 - 75.2 %) 88.4 H Lymphocytes % (20.5 - 51.1 %) 6.4 L Monocytes % (1.7 - 9.3 %) 5.1 Eosinophils % (0 - 5 %) 0 Basophils % (0.0 - 2.0 %) 0.1 Absolute Granulocytes (1.4 - 6.5 /CUMM) 16.5 H Absolute Lymphocytes (1.2 - 3.4 /CUMM) 1.2 Absolute Monocytes (0.10 - 0.60 /CUMM) 1.0 H Absolute Eosinophils (0.0 - 0.7 /CUMM) 0 Absolute Basophils (0.0 - 0.2 /CUMM) 0 Miscellaneous Ref Lab Test Result Pending 04/01 0758 Chemistry Sodium (137 - 145 mmol/L) 139 Potassium (3.5 - 5.1 mmol/L) 5.1 Chloride (98 - 107 mmol/L) 106 Carbon Dioxide (22 - 30 mmol/L) 21 L Anion Gap (5 - 16) 13 BUN (9 - 20 mg/dL) 52 H Creatinine (0.7 - 1.2 mg/dL) 2.2 H Estimated GFR (>60 ml/min) 29 L BUN/Creatinine Ratio (7 - 25 %) 23.6 Hematology CBC w Diff MAN DIFF ORDERED WBC (4.8 - 10.8 /CUMM) 23.2 H RBC (4.70 - 6.10 /CUMM) 3.00 L Hgb (14.0 - 18.0 G/DL) 9.5 L Hct (42 - 52 %) 28.9 L MCV (80.0 - 94.0 FL) 96.2 H MCH (27.0 - 31.0 PG) 31.6 H MCHC (33.0 - 37.0 G/DL) 32.8 L RDW (11.5 - 14.5 %) 12.1 Plt Count (130 - 400 /CUMM) 538 H MPV (7.4 - 10.4 FL) 7.2 L Gran % (42.2 - 75.2 %) 91.1 H Lymphocytes % (20.5 - 51.1 %) 3.2 L Monocytes % (1.7 - 9.3 %) 5.5 Eosinophils % (0 - 5 %) 0 Basophils % (0.0 - 2.0 %) 0.2 Absolute Granulocytes (1.4 - 6.5 /CUMM) 21.1 H Absolute Lymphocytes (1.2 - 3.4 /CUMM) 0.7 L Absolute Monocytes (0.10 - 0.60 /CUMM) 1.3 H Absolute Eosinophils (0.0 - 0.7 /CUMM) 0 Absolute Basophils (0.0 - 0.2 /CUMM) 0.1 Platelet Estimate (ADEQUATE) VERIFIED BY SMEAR Poikilocytosis 1+ Microbiology Date/Time Procedure - Status Source Growth 08/29 1314 Respiratory Culture - COLB LOWER RESP 08/29 1314 Gram Stain - COLB LOWER RESP 08/27 2239 AFB Culture with PCR Identification - RES LOWER RESP 08/27 2239 AFB Smear Concentration - RES LOWER RESP 08/27 2239 Respiratory Culture - CAN LOWER RESP Cancelled: NUMBER OF SQUAMOUS CELLS INDICATES POOR QUALITY SPECIMEN 08/27 2239 Gram Stain - CAN LOWER RESP Cancelled: NUMBER OF SQUAMOUS CELLS INDICATES POOR QUALITY SPECIMEN 08/26 2149 Legionella Antigen - COMP URINE ROUT 08/26 2149 Streptococcus pneumoniae Antigen (M - COMP URINE ROUT 08/27 2119 Influenza Virus A & B Rapid Smear - COMP NASOPHARYN 08/26 2114 Blood Culture - RES BLOOD 08/26 2029 Blood Culture - RES BLOOD 08/27 1999 Surveillance Culture - COMP UPPER RESP 08/26 141 Blood Culture - RES BLOOD 08/26 1411 Blood Culture - RES BLOOD Impression/Plan Impression/Plan Impression/Plan: ECHO CONCLUSIONS 1. Technically limited study. 2. Low normal EF of 50% with septal hypokinesis. 3. Mild left ventricular hypertrophy. 4. Mild mitral regurgitation. 5. Trace tricuspid regurgitation. 6. Moderate aortic stenosis with mild aortic regurgitation. CT IMPRESSION: 1. Compared to the prior CT chest, there has been interval development of multiple bilateral reticulonodular opacities with lower lobe predominance, right greater than left. There are associated biliary sized nodules predominantly noted in the lower lobes. Some larger irregular nodular opacities as detailed also predominantly noted in the right lower lobe. Differential possibility includes DIP, severe hypersensitivity pneumonitis or atypical sarcoidosis given the lower lobe predominance. Although there is presence of miliary nodules, the overall appearance is not typical for miliary tuberculosis. Lastly, lymphangitic carcinomatosis cannot be entirely excluded but appears less likely in the absence of mediastinal and hilar lymphadenopathy. Clinical and if indicated, biopsy correlation recommended. If biopsy is not performed, close monitoring or further assessment of the larger nodules with PET/CT recommended . 2. No gross lymphadenopathy. Reactive nodes noted in the mediastinum. DICTATED BY: Mina Gage MD DATE/TIME DICTATED:08/25/17 / 1616 VQ neg PRior PFT nil sig no sig obstructive lung disease General Appearance: Alert, Oriented X3, Cooperative, ON 2LNC Cardiovascular: Regular Rate, Normal S1, Normal S2, No Murmurs Lungs: BL wheezing, rhonchi Abdomen: Normal Bowel Sounds, Soft, No Tenderness Extremities: No Edema IMPRESSION This is an 87-year-old gentleman with history of very heavy tobacco use and quit more than 20 years ago, previous squamous cell carcinoma of the skin, coronary artery disease, previous TIA, hypertension, hyperlipidemia, spinal stenosis with back surgery, recurrent hiatal hernia followed by GI, 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 Patient does have systemic symptoms which includes 20 pound weight loss in the recent past as well. Patient is afebrile however he was on nonsteroidal. Inflammatory process versus malignancy needs to be ruled out. 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 * Mild to mod with valve area of 1.2 Recommendation * Sputum culture for bacterial, AFB 3. Patient does not need to be isolated no clinical evidence suggestive of tuberculosis for now. * Continue current antibiotics, can change to po ceftin and cont iv azithro for presumed atypical pna * Ok with steroids change to 40 mg daily for now * Rpt cxr * Keep hob up * Po ppi bid * I did discuss with the family Shane has been dcd and change him to 81 mg aspirin in anticipation of a biopsy if he needs it in the future * Full blood work as ordered pending If Stable will consider Bronch vs open lung biopsy this week pending the blood work Discussed with the family Ruthie escoto
--- NOTE | 2017-08-29 14:23 | RADIOLOGY REPORT ---
EXAMINATION: XR PORTABLE CHEST CLINICAL INFORMATION: Follow-up COMPARISON: Chest x-ray 08/26/2017 TECHNIQUE: Portable frontal view of the chest was obtained. FINDINGS: Heart size and pulmonary vascularity are within normal limits. There is a small amount of subsegmental atelectasis at the right lung base which is slightly increased from the previous examinations. Some streaky subsegmental atelectasis the left lung base is unchanged. The interstitial markings are slightly less prominent. No other new findings are seen in the lungs at this time. There is no pneumothorax or definitive pleural effusion. IMPRESSION: Slight increase in subsegmental atelectasis at the right base. No change in subsegmental atelectasis the left base. No other changes
--- NOTE | 2017-08-29 14:29 | PN- Att Addend ---
Attending Addendum Attending Brief Note Patient feeling better on steroids, sitting in the chair. Vital siogns are stable no fever on steroids. no major changes on physical ? little hematuria this AM, will check Patient had an Echocardiogram results noted other special tests not back yet. Will continue treatment as per pulmonary. Intake & Output 08/29 1600 08/29 0400 08/28 1600 08/28 0400 08/27 1600 08/27 0400 Intake Total 923 199 8407 465 2000 1150 Output Total 805 442 6403 300 700 250 Balance 263 909 4331 165 1300 900 Intake, IV 521 283 9200 550 Intake, Oral 028 765 4986 240 800 600 Number 2 1 Bowel Movements Output, Urine 557 899 4536 300 700 250 Patient 157 lb 152 lb 152 lb 143 lb Weight Weight Bed scale Reported by Patient Measurement Method Current Medications Sig/Mary Carmen Start time Last Medication Dose Route Stop Time Status Admin Acetaminophen 325 MG Q6 PRN 08/26 1700 AC PO Albuterol Sulfate 3 ML Q4P PRN 08/26 2200 AC 08/26 INH 2145 Aspirin 81 MG DAILY 08/27 1000 DC 08/29 PO 1015 Atorvastatin Calcium 20 MG 1700 08/27 1700 AC 08/28 PO 1724 Azithromycin 500 MG DAILY 08/27 1000 AC 08/29 Dextrose/Water 250 ML IV 1026 Ceftriaxone Sodium 1,000 MG DAILY 08/27 1000 DC 08/29 IV 1034 Cefuroxime Sodium 250 MG Q24 08/30 1000 AC PO Clonazepam 0.5 MG BID PRN 08/27 1421 AC PO 09/03 1420 Diltiazem HCl 120 MG DAILY 08/27 1000 AC 08/29 PO 1015 Finasteride 5 MG DAILY 08/27 1000 AC 08/29 PO 1018 Heparin Sodium 5,000 UNIT Q8 08/26 1659 DC 08/29 (Porcine) SC 0556 Isosorbide 60 MG DAILY 08/27 1000 AC 08/29 Mononitrate PO 1046 Latanoprost 1 GTT AT BEDTIME 08/26 2199 AC 08/28 OPH 2135 Melatonin 5 MG AT BEDTIME 08/27 2200 AC 08/28 PO 2134 Omeprazole 40 MG BID 08/27 1000 AC 08/29 PO 1017 Patient Medication 1 ED ONE ONE 08/29 1100 DC Teaching ED 08/29 1101 Prednisone 40 MG DAILY 08/30 1000 AC PO Prednisone 60 MG DAILY 08/26 1940 DC 08/29 PO 1016 Tamsulosin HCl 0.4 MG DAILY 08/27 1000 AC 08/29 PO 1016 Laboratory Tests 08/29/17 0825: Anion Gap 14, Estimated GFR 32 L, BUN/Creatinine Ratio 26.0 H, CBC w Diff NO MAN DIFF REQ, RBC 3.07 L, MCV 95.2 H, MCH 31.7 H, MCHC 33.3, RDW 12.2, MPV 7.0 L, Gran % 88.4 H, Lymphocytes % 6.4 L, Monocytes % 5.1, Eosinophils % 0, Basophils % 0.1, Absolute Granulocytes 16.5 H, Absolute Lymphocytes 1.2, Absolute Monocytes 1.0 H, Absolute Eosinophils 0, Absolute Basophils 0 08/29/17 0600: Ref Lab Test Result Pending 08/28/17 0758: Anion Gap 13, Estimated GFR 29 L, BUN/Creatinine Ratio 23.6, CBC w Diff MAN DIFF ORDERED, RBC 3.00 L, MCV 96.2 H, MCH 31.6 H, MCHC 32.8 L, RDW 12.1, MPV 7.2 L, Gran % 91.1 H, Lymphocytes % 3.2 L, Monocytes % 5.5, Eosinophils % 0, Basophils % 0.2, Absolute Granulocytes 21.1 H, Absolute Lymphocytes 0.7 L, Absolute Monocytes 1.3 H, Absolute Eosinophils 0, Absolute Basophils 0.1, Platelet Estimate VERIFIED BY SMEAR, Poikilocytosis 1+ 08/27/17 0801: Anion Gap 14, Estimated GFR 30 L, BUN/Creatinine Ratio 21.0, CBC w Diff NO MAN DIFF REQ, RBC 2.99 L, MCV 95.5 H, MCH 31.5 H, MCHC 33.0, RDW 11.7, MPV 7.2 L , Gran % 93.5 H, Lymphocytes % 4.7 L, Monocytes % 1.7, Eosinophils % 0, Basophils % 0.1, Absolute Granulocytes 12.0 H, Absolute Lymphocytes 0.6 L, Absolute Monocytes 0.2, Absolute Eosinophils 0, Absolute Basophils 0 08/26/172114: Aldolase Pending, Angiotensin Convert Enz Pending, Carcinoembryonic Ag Pending, CA 19-9 Antigen Pending, ANCA Pending, SS-A/Ro Antibody Pending, SS-B/La Antibody Pending, Ref Lab Test Result Pending 08/26/17 1915: TB Test (QFT) Mitogen Pending, TB Test Mitogen - Nil Pending, TB Test Antigen - Nil Pending, TB Test (QFT) Interp Pending 08/26/17 1659: Lactic Acid Cancelled Microbiology 08/29 1315 LOWER RESP: Respiratory Culture - COLB 08/29 1314 LOWER RESP: Gram Stain - COLB 08/27 2239 LOWER RESP: AFB Culture with PCR Identification - RES 08/27 2239 LOWER RESP: AFB Smear Concentration - RES 08/27 2239 LOWER RESP: Respiratory Culture - CAN Cancelled: NUMBER OF SQUAMOUS CELLS INDICATES POOR QUALITY SPECIMEN 08/27 2239 LOWER RESP: Gram Stain - CAN Cancelled: NUMBER OF SQUAMOUS CELLS INDICATES POOR QUALITY SPECIMEN 08/26 2149 URINE ROUT: Legionella Antigen - COMP 08/26 2149 URINE ROUT: Streptococcus pneumoniae Antigen (M - COMP 08/27 2119 NASOPHARYN: Influenza Virus A & B Rapid Smear - COMP 08/26 2114 BLOOD: Blood Culture - RES 08/26 2029 BLOOD: Blood Culture - RES 08/27 1999 UPPER RESP: Surveillance Culture - COMP Microbiology 08/29 131 LOWER RESP: Respiratory Culture - COLB 08/29 1314 LOWER RESP: Gram Stain - COLB 08/27 2239 LOWER RESP: AFB Culture with PCR Identification - RES 08/27 2239 LOWER RESP: AFB Smear Concentration - RES 08/27 2239 LOWER RESP: Respiratory Culture - CAN Cancelled: NUMBER OF SQUAMOUS CELLS INDICATES POOR QUALITY SPECIMEN 08/27 2239 LOWER RESP: Gram Stain - CAN Cancelled: NUMBER OF SQUAMOUS CELLS INDICATES POOR QUALITY SPECIMEN 08/26 2149 URINE ROUT: Legionella Antigen - COMP 08/26 2149 URINE ROUT: Streptococcus pneumoniae Antigen (M - COMP 08/27 2119 NASOPHARYN: Influenza Virus A & B Rapid Smear - COMP 08/26 2114 BLOOD: Blood Culture - RES 08/26 2029 BLOOD: Blood Culture - RES 08/27 1999 UPPER RESP: Surveillance Culture - COMP Vital Signs Date Time Temp Pulse Resp B/P B/P Pulse O2 O2 Flow FiO2 Mean Ox Delivery Rate 08/29 1233 94 Room Air 08/29 1046 92 142/60 08/29 1016 92 142/68 08/29 0620 98.3 83 18 136/65 93 Nasal Cannula 08/29 0000 Nasal 2.0L Cannula 04/01 2135 98.1 76 20 132/62 97 Nasal 2.0L Cannula 08/28 1514 98.0 83 20 130/70 95 JULI negative.
[2017-08-29 14:56] VITALS: BP 125/60
[2017-08-29 22:12] VITALS: BP 150/70
[2017-08-30 06:51] VITALS: BP 150/60
--- NOTE | 2017-08-30 07:12 | PN- Housestaff ---
Subjective Follow-up For: Acute hypoxic respiratory failure 2/2 to acute interstitial pneumonia Subjective: -Patient seen and examined. Resting comfortably. offers no complaint states that shortness of breath has improved. No hematuria since yesterday. Denies any fevers chills nausea vomiting or urinary symptoms. -No overnight acute events -JULI is negative, QuantiFERON results are intermediate -Rest of the labs are pending -Repeat chest x-ray showed increased atelectasis on right base otherwise pt is asymptomatic, incentive spirometry ordered and patient counsled to use the Review of Systems Constitutional: Reports: see HPI. Objective Last 24 Hrs of Vital Signs/I&O Vital Signs Date Time Temp Pulse Resp B/P B/P Pulse O2 O2 Flow FiO2 Mean Ox Delivery Rate 08/30 0651 98.0 76 20 150/60 92 Room Air 08/30 0000 Room Air 08/29 2212 97.9 73 20 150/70 96 Room Air 08/29 1600 Room Air 08/29 1456 97.5 76 20 125/60 95 08/29 1233 94 Room Air 08/29 1046 92 142/60 08/29 1016 92 142/68 Intake & Output 08/30 1600 08/30 0800 08/30 0000 Intake Total 400 800 Output Total 600 Balance -200 800 Intake, Oral 400 800 Output, Urine 600 Physical Exam General Appearance: Alert, Oriented X3, Cooperative Cardiovascular: Normal S1, Normal S2, systolic murmur Lungs: decreased sounds Abdomen: Normal Bowel Sounds, Soft Extremities: No Cyanosis Current Medications: Current Medications Sig/Mary Carmen Start time Last Medication Dose Route Stop Time Status Admin Acetaminophen 325 MG Q6 PRN 08/26 1700 AC PO Albuterol Sulfate 3 ML Q4P PRN 08/26 2200 AC 08/26 INH 2145 Aspirin 81 MG DAILY 08/27 1000 DC 08/29 PO 1015 Atorvastatin Calcium 20 MG 1700 08/27 1700 AC 08/29 PO 1555 Azithromycin 500 MG DAILY 08/27 1000 AC 08/29 Dextrose/Water 250 ML IV 1026 Ceftriaxone Sodium 1,000 MG DAILY 08/27 1000 DC 08/29 IV 1034 Cefuroxime Sodium 250 MG Q24 08/30 1000 AC PO Clonazepam 0.5 MG BID PRN 08/27 1421 AC PO 09/03 1420 Diltiazem HCl 120 MG DAILY 08/27 1000 AC 08/29 PO 1015 Finasteride 5 MG DAILY 08/27 1000 AC 08/29 PO 1018 Heparin Sodium 5,000 UNIT Q8 08/26 1659 DC 08/29 (Porcine) SC 0556 Isosorbide 60 MG DAILY 08/27 1000 AC 08/29 Mononitrate PO 1046 Latanoprost 1 GTT AT BEDTIME 08/260 AC 08/29 OPH 2046 Melatonin 5 MG AT BEDTIME 08/27 2200 AC 08/29 PO 204 Omeprazole 40 MG BID 08/27 1000 AC 08/29 PO 204 Patient Medication 1 ED ONE ONE 08/29 1100 DC Teaching ED 08/29 1101 Prednisone 40 MG DAILY 08/30 1000 AC PO Prednisone 60 MG DAILY 08/26 1940 DC 08/29 PO 1016 Tamsulosin HCl 0.4 MG DAILY 08/27 1000 AC 08/29 PO 1016 Last 24 Hrs of Lab/Jose Results Last 24 Hrs of Labs/Mics: Laboratory Tests 08/30/17 0749: Anion Gap 11, Estimated GFR 38 L, BUN/Creatinine Ratio 27.1 H, CBC w Diff NO MAN DIFF REQ, RBC 3.00 L, MCV 94.5 H, MCH 31.7 H, MCHC 33.6, RDW 12.2, MPV 6.9 L, Gran % 81.1 H, Lymphocytes % 10.8 L, Monocytes % 8.0, Eosinophils % 0, Basophils % 0.1, Absolute Granulocytes 12.9 H, Absolute Lymphocytes 1.7, Absolute Monocytes 1.3 H, Absolute Eosinophils 0, Absolute Basophils 0 Microbiology 08/30 629 LOWER RESP: Respiratory Culture - RECD 08/30 629 LOWER RESP: Gram Stain - RECD Assessment/Plan Assessment: Patient is 87-year-old male with remote history of tobacco abuse(quit 20+ years ago), 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 Acute hypoxic respiratory failure: Secondary to atypical pneumonia. We are exploring inflammatory causes versus malignancy as a probable cause -Monitor fever and WBC curve patient remains afebrile and WBC count of 15.9 can be attributed to steroids -Prednisone taper -Continue PO azithromycin qD for 2 wks and PO Ceftin for 7 days -sputum cultures, adequate sample has not been received sor have asked the respiratory to do hypertonic saline nebulization -Afbx 3 -ESR, CRP elevated, CPK 50, RF WNL, JULI negative, QuantiFERON results were intermediate -CEA, CA 19-9, Aldolase, DENISE, ANCA, Sjogren's antibody panel, anti-Kiarra 1 antibody pending -Myositis antibody panel sent out to [facility] #Hematuria-reolved Patient is complaining of hematuria -Continue to monitor -send urine for cytology -Asprin continued #Thrombocytosis was initially thought to be reactive but is continuously uptrending pointing to bone marrow involvement -Continue to monitor -decrease PPI to qD #Acute on chronic kidney injury-resolved -Continue to monitor creatinine, back to baseline -Avoid nephrotoxins #History of coronary artery disease: Multiple cardic catheterizations in the past. -Continue home medications Cardizem, Imdur, Aggrenox and atorvastatin -Echocardiogram Low normal EF of 50% with septal hypokinesis. -clopidogrel on hold in case if biopsy needed, continue asprin #History of BPH -continue Flomax Heart healthy/DVT prophylaxis subcutaneous heparin/FC Problem List: 1. Acute respiratory failure with hypoxia Pain Ratin Pain Location: n/a Pain Goal: Pain 4 or less Pain Plan: prn Tomorrow's Labs & Rationales: as ordered
[2017-08-30 08:39] LABS: ABSOLUTE BASOPHIL COUNT 0 /CUMM (0.0-0.2); ABSOLUTE EOSINOPHIL COUNT 0 /CUMM (0.0-0.7); ABSOLUTE GRANULOCYTE CT 12.9 /CUMM (1.4-6.5); ABSOLUTE LYMPH COUNT 1.7 /CUMM (1.2-3.4); ABSOLUTE MONOCYTE COUNT 1.3 /CUMM (0.10-0.60); BASOPHIL % 0.1 % (0.0-2.0); EOSINOPHIL % 0 % (0-5); GRANULOCYTE % 81.1 % (42.2-75.2); HEMATOCRIT 28.3 % (42-52); MEAN CORPUSCULAR HGB 31.7 PG (27.0-31.0); MEAN CORPUSCULAR HGB CONC 33.6 G/DL (33.0-37.0); MEAN CORPUSCULAR VOLUME 94.5 FL (80.0-94.0); MEAN PLATELET VOLUME 6.9 FL (7.4-10.4); PLATELET COUNT 529 /CUMM (130-400); RBC DISTRIBUTION WIDTH 12.2 % (11.5-14.5); WHITE BLOOD CELL COUNT 15.9 /CUMM (4.8-10.8)
--- NOTE | 2017-08-30 09:27 | PN- Att Addend ---
Attending Addendum Attending Brief Note Again did not sleep well last evening. No other new complaints. Vital signs are stable, fever no major changes on physical appreciate Dr. Escobedo' s input and recommendations. They maybe a cardiac component for his shortness of breath so will ask Dr. Mcmahon to evaluate the patient today White count 15,900 today, kidney function very slightly better today but still elevated. QuantiFERON results indetermined. Continue treatment as per consultants recommendations get a PT evaluation. Intake & Output 08/30 1600 08/30 0400 08/29 1600 08/29 0400 08/28 1600 08/28 0400 Intake Total 183 600 9964 400 2125 465 Output Total 600 502 926 5004 300 Balance -200 800 014 435 3533 165 Intake, IV 525 225 Intake, Oral 475 532 9980 400 1600 240 Number 2 Bowel Movements Output, Urine 600 917 043 5999 300 Patient 157 lb 152 lb Weight Weight Bed scale Measurement Method Current Medications Sig/Mary Carmen Start time Last Medication Dose Route Stop Time Status Admin Acetaminophen 325 MG Q6 PRN 08/26 1700 AC PO Albuterol Sulfate 3 ML Q4P PRN 08/26 2200 AC 08/26 INH 2145 Aspirin 81 MG DAILY 08/27 1000 DC 08/29 PO 1015 Atorvastatin Calcium 20 MG 1700 08/27 1700 AC 08/29 PO 1555 Azithromycin 500 MG DAILY 08/27 1000 AC 08/29 Dextrose/Water 250 ML IV 1026 Ceftriaxone Sodium 1,000 MG DAILY 08/27 1000 DC 08/29 IV 1034 Cefuroxime Sodium 250 MG Q24 08/30 1000 AC PO Clonazepam 0.5 MG BID PRN 08/27 1421 AC PO 09/03 1420 Diltiazem HCl 120 MG DAILY 08/27 1000 AC 08/29 PO 1015 Finasteride 5 MG DAILY 08/27 1000 AC 08/29 PO 1018 Heparin Sodium 5,000 UNIT Q8 08/26 1659 DC 08/29 (Porcine) SC 0556 Isosorbide 60 MG DAILY 08/27 1000 AC 08/29 Mononitrate PO 1046 Latanoprost 1 GTT AT BEDTIME 08/26 2199 AC 08/29 OPH 2046 Melatonin 5 MG AT BEDTIME 08/27 2200 AC 08/29 PO 2046 Omeprazole 40 MG BID 08/27 1000 AC 08/29 PO 2046 Patient Medication 1 ED ONE ONE 08/29 1100 DC Teaching ED 08/29 1101 Prednisone 40 MG DAILY 08/30 1000 AC PO Prednisone 60 MG DAILY 08/27 1939 DC 08/29 PO 1016 Tamsulosin HCl 0.4 MG DAILY 08/27 1000 AC 08/29 PO 1016 Laboratory Tests 08/30/17 0749: Anion Gap 11, Estimated GFR 38 L, BUN/Creatinine Ratio 27.1 H, CBC w Diff NO MAN DIFF REQ, RBC 3.00 L, MCV 94.5 H, MCH 31.7 H, MCHC 33.6, RDW 12.2, MPV 6.9 L, Gran % 81.1 H, Lymphocytes % 10.8 L, Monocytes % 8.0, Eosinophils % 0, Basophils % 0.1, Absolute Granulocytes 12.9 H, Absolute Lymphocytes 1.7, Absolute Monocytes 1.3 H, Absolute Eosinophils 0, Absolute Basophils 0 08/29/17 0825: Anion Gap 14, Estimated GFR 32 L, BUN/Creatinine Ratio 26.0 H, CBC w Diff NO MAN DIFF REQ, RBC 3.07 L, MCV 95.2 H, MCH 31.7 H, MCHC 33.3, RDW 12.2, MPV 7.0 L, Gran % 88.4 H, Lymphocytes % 6.4 L, Monocytes % 5.1, Eosinophils % 0, Basophils % 0.1, Absolute Granulocytes 16.5 H, Absolute Lymphocytes 1.2, Absolute Monocytes 1.0 H, Absolute Eosinophils 0, Absolute Basophils 0 08/29/17 0600: Ref Lab Test Result Pending 08/28/17 0758: Anion Gap 13, Estimated GFR 29 L, BUN/Creatinine Ratio 23.6, CBC w Diff MAN DIFF ORDERED, RBC 3.00 L, MCV 96.2 H, MCH 31.6 H, MCHC 32.8 L, RDW 12.1, MPV 7.2 L, Gran % 91.1 H, Lymphocytes % 3.2 L, Monocytes % 5.5, Eosinophils % 0, Basophils % 0.2, Absolute Granulocytes 21.1 H, Absolute Lymphocytes 0.7 L, Absolute Monocytes 1.3 H, Absolute Eosinophils 0, Absolute Basophils 0.1, Platelet Estimate VERIFIED BY SMEAR, Poikilocytosis 1+ Microbiology 08/30 629 LOWER RESP: Respiratory Culture - RECD 08/30 629 LOWER RESP: Gram Stain - RECD Microbiology 04/03 0630 LOWER RESP: Respiratory Culture - RECD 08/30 0630 LOWER RESP: Gram Stain - RECD Vital Signs Date Time Temp Pulse Resp B/P B/P Pulse O2 O2 Flow FiO2 Mean Ox Delivery Rate 08/30 0651 98.0 76 20 150/60 92 Room Air 08/30 0000 Room Air 08/29 2212 97.9 73 20 150/70 96 Room Air 08/29 1600 Room Air 08/29 1456 97.5 76 20 125/60 95 04 1233 94 Room Air 08/29 1046 92 142/60 08/29 1016 92 142/68
--- NOTE | 2017-08-30 09:59 | PN- Pulmonary ---
Subjective HPI/Critical Care Issues: Ongoing tachycardia Improved Dyspnea improved Objective Current Medications: Current Medications Sig/Mary Carmen Start time Last Medication Dose Route Stop Time Status Admin Acetaminophen 325 MG Q6 PRN 08/26 1700 AC PO Albuterol Sulfate 3 ML Q4P PRN 08/26 2200 AC 08/26 INH 2145 Aspirin 81 MG DAILY 08/27 1000 DC 08/29 PO 1015 Atorvastatin Calcium 20 MG 1700 08/27 1700 AC 08/29 PO 1555 Azithromycin 500 MG DAILY 08/27 1000 AC 08/29 Dextrose/Water 250 ML IV 1026 Ceftriaxone Sodium 1,000 MG DAILY 08/27 1000 DC 08/29 IV 1034 Cefuroxime Sodium 250 MG Q24 08/30 1000 AC PO Clonazepam 0.5 MG BID PRN 08/27 1421 AC PO 09/03 1420 Diltiazem HCl 120 MG DAILY 08/27 1000 AC 08/29 PO 1015 Finasteride 5 MG DAILY 08/27 1000 AC 08/29 PO 1018 Heparin Sodium 5,000 UNIT Q8 08/26 1659 DC 08/29 (Porcine) SC 0556 Isosorbide 60 MG DAILY 08/27 1000 AC 08/29 Mononitrate PO 1046 Latanoprost 1 GTT AT BEDTIME 08/26 2200 AC 08/29 OPH 2046 Melatonin 5 MG AT BEDTIME 08/27 2200 AC 08/29 PO 2046 Omeprazole 40 MG BID 08/27 1000 AC 08/29 PO 2046 Patient Medication 1 ED ONE ONE 08/29 1100 MI Teaching ED 08/29 1101 Prednisone 40 MG DAILY 08/30 1000 AC PO Prednisone 60 MG DAILY 08/26 1940 DC 08/29 PO 1016 Tamsulosin HCl 0.4 MG DAILY 08/27 1000 AC 08/29 PO 1016 Vital Signs & I&O Last 24 Hrs of Vitals and I&O: Vital Signs Date Time Temp Pulse Resp B/P B/P Pulse O2 O2 Flow FiO2 Mean Ox Delivery Rate 08/30 0651 98.0 76 20 150/60 92 Room Air 08/30 0000 Room Air 08/29 2212 97.9 73 20 150/70 96 Room Air 08/29 1600 Room Air 08/29 1456 97.5 76 20 125/60 95 04/02 1233 94 Room Air 08/29 1046 92 142/60 08/29 1016 92 142/68 Intake & Output 08/30 1600 08/30 0800 04 0000 Intake Total 400 800 Output Total 600 Balance -200 800 Intake, Oral 400 800 Output, Urine 600 Impression/Plan Impression/Plan Impression/Plan: ECHO CONCLUSIONS 1. Technically limited study. 2. Low normal EF of 50% with septal hypokinesis. 3. Mild left ventricular hypertrophy. 4. Mild mitral regurgitation. 5. Trace tricuspid regurgitation. 6. Moderate aortic stenosis with mild aortic regurgitation. CT IMPRESSION: 1. Compared to the prior CT chest, there has been interval development of multiple bilateral reticulonodular opacities with lower lobe predominance, right greater than left. There are associated biliary sized nodules predominantly noted in the lower lobes. Some larger irregular nodular opacities as detailed also predominantly noted in the right lower lobe. Differential possibility includes DIP, severe hypersensitivity pneumonitis or atypical sarcoidosis given the lower lobe predominance. Although there is presence of miliary nodules, the overall appearance is not typical for miliary tuberculosis. Lastly, lymphangitic carcinomatosis cannot be entirely excluded but appears less likely in the absence of mediastinal and hilar lymphadenopathy. Clinical and if indicated, biopsy correlation recommended. If biopsy is not performed, close monitoring or further assessment of the larger nodules with PET/CT recommended . 2. No gross lymphadenopathy. Reactive nodes noted in the mediastinum. DICTATED BY: Mina Gage MD DATE/TIME DICTATED:08/25/171615 VQ neg PRior PFT nil sig no sig obstructive lung disease General Appearance: Alert, Oriented X3, Cooperative, ON 2LNC Cardiovascular: Regular Rate, Normal S1, Normal S2, No Murmurs Lungs: BL wheezing, rhonchi Abdomen: Normal Bowel Sounds, Soft, No Tenderness Extremities: No Edema IMPRESSION This is an 87-year-old gentleman with history of very heavy tobacco use and quit more than 20 years ago, previous squamous cell carcinoma of the skin, coronary artery disease, previous TIA, hypertension, hyperlipidemia, spinal stenosis with back surgery, recurrent hiatal hernia followed by GI, 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 Patient does have systemic symptoms which includes 20 pound weight loss in the recent past as well. Patient is afebrile however he was on nonsteroidal. Inflammatory process versus malignancy needs to be ruled out. 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 * Mild to mod with valve area of 1.2, now with tachy Recommendation * Await all the studies. * Continue current antibiotics, po ceftin ( for total seven days) and change to po azithro 250 qd for total azithro of 2 weeks * Prednisone 40 for 5 days then 30 for 5 and 20 for five 10 for five and 5 mg for five * Ask Dr. Mcmahon to see the patient as he is more tachy and rpt ekg * Keep hob up * Po ppi change to qd * COnt asa * Full blood work as ordered pending Bronch will be considered if he does not have any sig response but his morbidity from it would be high and lung bx may not be ideal due to sig valvular heart dz etc (willl decide as out pt) Discussed with the family Prog guarded
[2017-08-30] MEDS ORDERED: CEFUROXIME250 M1 PO (13:27)
[2017-08-30] MEDS ORDERED: ZITHROMAX250 M2 PO (13:27)
[2017-08-30] MEDS ORDERED: PREDNISONE10 M2 PO (13:27)
[2017-08-30] MEDS ORDERED: PANTOPRAZOLE SO40 M1 PO (13:27)
--- NOTE | 2017-08-30 13:27 | Patient Discharge Instructions ---
Discharge Instructions General Discharge Information You were seen/treated for: Atypical pneumonia Watch for these problems: Fever, chills, shortness of breath, chest pain, palpitations Please avoid dehydration Special Instructions: -Please follow-up with Dr. Escobedo after 1 week of discharge -Please follow-up with PCP after discharge -you will need biopsy of a salivary gland Diet Continue normal diet: Yes Activity Activity Self Limited: Yes Acute Coronary Syndrome Inclusion Criteria At DC or during hospital stay patient has or had the following: ACS DIAGNOSIS No Discharge Core Measures Meds if any: Prescribed or Continued at Discharge Meds if any: NOT Prescribed or Continued at Discharge Congestive Heart Failure Inclusion Criteria At DC or during hospital stay patient has or had the following: CHF DIAGNOSIS No Discharge Core Measures Meds if any: Prescribed or Continued at Discharge Meds if any: NOT Prescribed or Continued at Discharge Cerebrovascular accident Inclusion Criteria At DC or during hospital stay patient has or had the following: CVA/TIA Diagnosis No Discharge Core Measures Meds if any: Prescribed or Continued at Discharge Meds if any: NOT Prescribed or Continued at Discharge Venous thromboembolism Inclusion Criteria VTE Diagnosis No VTE Type NONE VTE Confirmed by (Test) NONE Discharge Core Measures - Per Current guidelines, there needs to be overlap - treatment for the first 5 days of Warfarin therapy. - If discharged on Warfarin prior to 5 days of - overlap therapy, the patient will need to be - assessed for post discharge needs including - *Post discharge parental anticoagulation - *Warfarin and/or parental anticoagulation education - *Follow up date to check INR post discharge At least 5 days overlap therapy as Inpatient No Meds if any: Prescribed or Continued at Discharge Note: Overlap Therapy is Warfarin and Anticoagulant Meds if any: NOT Prescribed or Continued at Discharge
[2017-08-30 14:25] VITALS: BP 140/73
--- NOTE | 2017-08-30 20:37 | Cons- Cardiology ---
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 Allergies/Medications Allergies: Coded Allergies: NO KNOWN ALLERGIES (05/22/12) Home Med List: Amiloride/Hydrochlorothiazide (Amiloride HCl-Hctz 5-50 MG Tab) 5 MG-50 MG TABLET 1 TAB PO DAILY BP (Reported) Azithromycin (Zithromax) 250 MG TABLET 1 DP PO AD LUNG DISEASE TAKE EVERY OTHER DAY FOR 2 WEEKS TILL 09/14 Cefuroxime Axetil (Cefuroxime) 250 MG TABLET 1 TAB PO DAILY LUNG INFECTION Clonazepam 0.5 MG TABLET 1 TAB PO TIDPRN ANXIETY (Reported) Diltiazem HCl (Cardizem Cd) 120 MG CAP.ER.24H 1 TAB PO DAILY HR (Reported) Dipyridamole W/ Aspirin (Aggrenox 25 MG-200 MG Capsule) 25 MG-200 MG CPMP.12HR 1 TAB PO BID THINNER (Reported) Finasteride 5 MG TABLET 1 TAB PO DAILY UNK (Reported) Hydrochlorothiazide 25 MG TABLET 1 TAB PO DAILY HTN (Reported) Isosorbide Mononitrate (Isosorbide Mononitrate ER) 60 MG TAB.ER.24H 1 TAB PO DAILY BP (Reported) Meloxicam 15 MG TABLET 1 TAB PO DAILY PAIN (Reported) Pantoprazole Sodium 40 MG TABLET.DR 1 TAB PO Q48 GERD TAKE EVERY OTHER DAY Prednisone 10 MG TABLET 0 PO SEE ADMIN CRITERIA LUNG INFLAMMATION TAKE 4 TABS 40MG FROM TO 09/03 TAKE 3 TABS 30MG FROM 09/04 TO 09/08 TAKE 2 TABS 20MG FROM 09/09 TO 09/13 TAKE 1 TAB 10MG FROM 09/15 TO 09/19 TAKE 0.5 TAB 5MG FROM 09/20 TO 09/24 THEN STOP Simvastatin (Simvastatin*) 20 MG TABLET 1 TAB PO QPM CHOL (Reported) Tamsulosin HCl 0.4 MG CAP.ER.24H 1 CAP PO DAILY URINE (Reported) Travoprost (Travatan Z) 0.004 % DROPS 1 GTT OPH QPM GLAUCOMA (Reported) Review of Systems Review of Systems: A review of systems is remarkable for weight loss. Past History Travel History Traveled to [place] past 21 day No Medical History Blood Transfusion Hx: No Neurological: NONE EENT: LENS INPLANT, GLAUCOMA Cardiovascular: HEART,HTN CHOL Respiratory: NONE Gastrointestinal: GERD Hepatic: NONE Renal: NONE Musculoskeletal: NONE Psychiatric: anxiety Endocrine: NONE Blood Disorders: NONE Cancer(s): SKIN CANCER Surgical History Surgical History: ROTATOR CUFF Psychosocial History Where Do You Live? Home Services at Home: None Smoking Status: Former Smoker Exam & Diagnostic Data Vital Signs and I&O Vital Signs Date Time Temp Pulse Resp B/P B/P Pulse O2 O2 Flow FiO2 Mean Ox Delivery Rate 08/30 1425 98.2 78 18 140/73 93 08/30 1044 102 150/62 08/30 1044 102 150/62 08/30 0651 98.0 76 20 150/60 92 Room Air 08/30 0000 Room Air 08/29 2212 97.9 73 20 150/70 96 Room Air Intake & Output 08/30 1600 08/30 0800 08/30 0000 08/29 1600 08/29 0800 08/29 0000 Intake Total 820 400 800 600 400 400 Output Total 600 525 Balance 820 -200 800 600 -125 400 Intake, IV 280 Intake, Oral 540 400 800 600 400 400 Output, Urine 600 525 Patient 157 lb Weight Weight Bed scale Measurement Method Physical Exam: General: WD/WN female in NAD; alert and oriented x 3 HEENT: NC/surgical scars on right ear, PERRL, EOMI Neck: no JVD, right carotid bruit, no bruit on right Heart: RRR with 2/6 systolic bruit Lungs: no crackles or wheezing Abdomen: soft, NT, +ve bowel sounds Extremities: no edema Assessment/Plan Assessment/Plan * This patient has mild chest discomfort that may be related to myocardial ischemia although it should be noted that this patient carries a history of chronic chest pain and has undergone multiple cardiac catheterizations that were negative for flow limiting coronary artery disease. Medical management to control chest discomfort is reasonable. Continue isosorbide, aspirin and his statin. * This patient had some transient tachycardia that is likely multifactorial and due to moderate anemia, relative dehydration (note increased creatinine yesterday) and possible exacerbated by albuterol. If there is no evidence of bronchospasm then a beta shoaib will be beneficial. In the setting of moderate aortic stenosis tachycardia will be poorly tolerated as will dehydration. The poor ability of the heart to increase cardiac output will result in a pre-renal state. I believe that patient is euvolemic at this point in time. Consult Acknowledgment - Thank you for your consult request.
[2017-08-30 21:47] VITALS: BP 140/60
[2017-08-31 06:42] VITALS: BP 142/76
[2017-08-31 08:06] LABS: ABSOLUTE BASOPHIL COUNT 0 /CUMM (0.0-0.2); ABSOLUTE EOSINOPHIL COUNT 0 /CUMM (0.0-0.7); ABSOLUTE GRANULOCYTE CT 13.2 /CUMM (1.4-6.5); ABSOLUTE LYMPH COUNT 1.9 /CUMM (1.2-3.4); ABSOLUTE MONOCYTE COUNT 1.3 /CUMM (0.10-0.60); BASOPHIL % 0.2 % (0.0-2.0); EOSINOPHIL % 0.1 % (0-5); GRANULOCYTE % 80.6 % (42.2-75.2); HEMATOCRIT 28.8 % (42-52); MEAN CORPUSCULAR HGB 31.7 PG (27.0-31.0); MEAN CORPUSCULAR HGB CONC 33.4 G/DL (33.0-37.0); MEAN CORPUSCULAR VOLUME 94.9 FL (80.0-94.0); MEAN PLATELET VOLUME 7.1 FL (7.4-10.4); PLATELET COUNT 538 /CUMM (130-400); RBC DISTRIBUTION WIDTH 11.9 % (11.5-14.5); RED BLOOD CELL CT 3.04 /CUMM (4.70-6.10); WHITE BLOOD CELL COUNT 16.4 /CUMM (4.8-10.8)
--- NOTE | 2017-08-31 08:37 | PN- Housestaff ---
Subjective Follow-up For: Atypical pneumonia Subjective: Patient seen and examined. No acute overnight events. Reports improvement in symptoms. 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 Objective Last 24 Hrs of Vital Signs/I&O Vital Signs Date Time Temp Pulse Resp B/P B/P Pulse O2 O2 Flow FiO2 Mean Ox Delivery Rate 08/31 0856 104 156/62 08/31 0855 98.6 104 20 156/62 08/31 0642 98.2 86 20 142/76 92 08/30 2147 97.6 70 20 140/60 96 08/30 1425 98.2 78 18 140/73 93 Intake & Output 08/31 1600 08/31 0800 08/31 0000 Intake Total 480 800 Output Total 350 250 Balance -350 480 550 Intake, Oral 480 800 Output, Urine 350 250 Physical Exam General Appearance: Alert, Oriented X3, Cooperative Skin: No Rashes HEENT: Atraumatic Cardiovascular: Normal S1, Normal S2 Lungs: Normal Air Movement Abdomen: Soft Neurological: Normal Speech Extremities: No Cyanosis Current Medications: Current Medications Sig/Mary Carmen Start time Last Medication Dose Route Stop Time Status Admin Acetaminophen 325 MG Q6 PRN 08/26 1700 AC PO Albuterol Sulfate 3 ML Q4P PRN 08/26 2200 AC 08/26 INH 2145 Aspirin 81 MG DAILY 08/31 1000 AC 08/31 PO 0857 Atorvastatin Calcium 20 MG 1700 08/27 1700 AC 08/30 PO 1731 Azithromycin 250 MG Q48@1000 08/31 1000 AC 08/31 PO 09/14 1001 0858 Cefuroxime Sodium 250 MG Q24 08/30 1145 AC 08/31 PO 0858 Clonazepam 0.5 MG BID PRN 08/27 1421 AC PO 09/03 1420 Diltiazem HCl 120 MG DAILY 08/27 1000 AC 08/31 PO 0853 Finasteride 5 MG DAILY 08/27 1000 AC 08/31 PO 0854 Heparin Sodium 5,000 UNIT Q8 08/30 1400 AC 08/31 (Porcine) SC 0557 Isosorbide 60 MG DAILY 08/27 1000 AC 08/31 Mononitrate PO 0855 Latanoprost 1 GTT AT BEDTIME 08/26 2200 AC 08/30 OPH 2100 Melatonin 5 MG AT BEDTIME 08/27 2200 AC 08/30 PO 2059 Omeprazole 40 MG Q48@1000 09/01 1000 DC PO Omeprazole 40 MG Q48@0700 09/01 0700 AC PO Patient Medication 1 ED ONE ONE 08/31 1100 [facility] ED 08/31 1101 Patient Medication 1 ED ONE ONE 08/30 1630 [facility] ED 08/30 1631 Prednisone 40 MG DAILY 08/30 1000 AC 08/31 PO 09/03 1001 0857 Tamsulosin HCl 0.4 MG DAILY 08/27 1000 AC 08/31 PO 0856 Last 24 Hrs of Lab/Jose Results Last 24 Hrs of Labs/Mics: Laboratory Tests 08/31/17 0715: Anion Gap 10, Estimated GFR 38 L, BUN/Creatinine Ratio 21.8, Magnesium 1.8, CBC w Diff NO MAN DIFF REQ, RBC 3.04 L, MCV 94.9 H, MCH 31.7 H, MCHC 33.4, RDW 11.9, MPV 7.1 L, Gran % 80.6 H, Lymphocytes % 11.4 L, Monocytes % 7.7, Eosinophils % 0.1, Basophils % 0.2, Absolute Granulocytes 13.2 H, Absolute Lymphocytes 1.9, Absolute Monocytes 1.3 H, Absolute Eosinophils 0, Absolute Basophils 0 Assessment/Plan Assessment: The patient is 87-year-old male with remote history of tobacco abuse(quit 20+ years ago), 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 Patient reported decreased appetite and weight loss 19- 20 pounds over the past 2months. He had no sick contacts and no recent travels. No exposure to pets, birds, new environment. He is an ex smoker and quit about 20 years ago. 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 His is a heavy smoker, however patient reported that she smokes mostly in the basement. On presentation patient was tachycardic and he was satting 97% on 4 L nasal. Per EMS RA sats were 84% The patient was admitted to general medicine floor and was treated evaluated for acute hypoxic respiratory failure secondary to acute interstitial pneumonia ( atypical PNA). Our differential included inflammatory diseases versus malignancy. Extensive workup was ordered -Lab findings continue to be significant for leukocytosis, thrombocytosis -Blood cultures remain negative to date, adequate sputum sample was not obtained so sputum culture could not be done; however urine Legionella and urine strep antigens were negative. Flu test was also negative -ESR and CRP were found to be elevated, RF, JULI, Aldolase, DENISE, ANCA all were negative -QuantiFERON results were intermediate. AFB smear did not detect any acid fast bacilli and no growth so far on culture -CEA was elevated at 3.9 with smoking history it should be less than 5 so was within acceptable range. 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 Patient has been transitioned to oral antibiotics and he is being discharged on Ceftin to complete 7 day course and azithromycin 250 mg to be continued for 2 weeks. He is also being discharged on a prolonged steroid taper. Patient had an episode of transient tachycardia during his stay was evaluated by cardiology who recommended to continue his regimen of aspirin/clopidogrel, statin and isosorbide. The patient will probably need salivary gland biopsy in the future with head and neck/ENT surgery. He has been referred from Dr. Escobedo and instructions to follow-up with him after 1 week of discharge. 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 Acute respiratory failure with hypoxia Pain Ratin Pain Location: none Pain Goal: Pain 4 or less Pain Plan: prn Tomorrow's Labs & Rationales: n/a
[2017-08-31 08:56] VITALS: BP 156/62
[2017-08-31] MEDS ORDERED: ASPIRIN EC81 M1 PO (10:27)
--- NOTE | 2017-08-31 13:12 | Discharge Summary ---
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 Patient reported decreased appetite and weight loss 19- 20 pounds over the past 2months. He had no sick contacts and no recent travels. No exposure to pets, birds, new environment. He is an ex smoker and quit about 20 years ago. 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 His is a heavy smoker, however patient reported that she smokes mostly in the basement. On presentation patient was tachycardic and he was satting 97% on 4 L nasal. Per EMS RA sats were 84% The patient was admitted to general medicine floor and was treated evaluated for acute hypoxic respiratory failure secondary to acute interstitial pneumonia ( atypical PNA). Our differential included inflammatory diseases versus malignancy. Extensive workup was ordered -Lab findings continue to be significant for leukocytosis, thrombocytosis -Blood cultures remain negative to date, adequate sputum sample was not obtained so sputum culture could not be done; however urine Legionella and urine strep antigens were negative. Flu test was also negative -ESR and CRP were found to be elevated, RF, JULI, Aldolase, DENISE, ANCA all were negative -QuantiFERON results were intermediate. AFB smear did not detect any acid fast bacilli and no growth so far on culture -CEA was elevated at 3.9 with smoking history it should be less than 5 so was within acceptable range. Total PSA and CA 19-9 were WNL -in Sjogren's antibody panel anti-La Antibody was found to be positive, anti-Ro was negative -Myositis antibody panel sent out to [facility] The patient was initially treated with IV azithromycin and IV effect ceftriaxone along with IV steroids. Patient has been transitioned to oral antibiotics and he is being discharged on Ceftin to complete 7 day course and azithromycin 250 mg to be continued for 2 weeks. He is also being discharged on a prolonged steroid taper. Patient had an episode of transient tachycardia during his stay was evaluated by cardiology who recommended to continue his regimen of aspirin/clopidogrel, statin and isosorbide. The patient will probably need salivary gland biopsy in the future with head and neck/ENT surgery. We held his aspirin/clopidogrel combination transiently as he might require a lung biopsy since patient has multiple pulmonary nodules on CT scan previously however he is not a candidate for lung biopsy in setting of significant valvular heart disease so it was continued on discharge He has been provided referral for Dr. Escobedo with instructions to follow-up with him after 1 week of discharge. He has also been advised to discontinue hydrochlorothiazide and follow-up with his PCP and dry cleaner hand With ongoing medical comorbidities patient's prognosis remains guarded Patient remained full code during his stay. Allergies: Coded Allergies: NO KNOWN ALLERGIES (05/22/12) Disposition Summary Disposition Principal Diagnosis: acute hypoxic respiratory failure secondary to acute interstitial pneumonia ( atypical PNA) Additional Diagnosis: Transient tachycardia Discharge Disposition: home or self care Discharge Instructions General Discharge Information Code Status: Full Code Patient's Diet: Heart healthy Patient's Activity: As tolerated Follow-Up Instructions/Appts: Patient to follow-up with Dr. Escobedo, his dry cleaner hand Dr. Mcmahon, and PCP Medications at Discharge Discharge Medications: Stop taking the following medications: Amiloride/Hydrochlorothiazide (Amiloride HCl-Hctz 5-50 MG Tab) 5 MG-50 MG TABLET ORAL DAILY Qty = 30 Diltiazem HCl (Cardizem Cd) 120 MG CAP.ER.24H ORAL DAILY Continue taking these medications: Dipyridamole W/ Aspirin (Aggrenox 25 MG-200 MG Capsule) 25 MG-200 MG CPMP.12HR 1 Tablet ORAL TWICE DAILY Qty = 52 Comments: NOT GIVEN Clonazepam (Clonazepam) 0.5 MG TABLET 1 Tablet ORAL BID PRN Qty = 60 Comments: NOT GIVEN Tamsulosin HCl (Tamsulosin HCl) 0.4 MG CAP.ER.24H 1 Capsule ORAL DAILY Qty = 82 Comments: Last Taken:08/31/17 Time:9AM Isosorbide Mononitrate (Isosorbide Mononitrate ER) 60 MG TAB.ER.24H 1 Tablet ORAL DAILY Qty = 82 Comments: Last Taken:08/31/17 Time:9AM Simvastatin (Simvastatin*) 20 MG TABLET 1 Tablet ORAL Every night Qty = 74 Comments: NOT GIVEN PATIENT GIVEN LIPITOR Travoprost (Travatan Z) 0.004 % DROPS 1 Drop In the eye Every night Qty = 1 Comments: Last Taken:08/30/17 Time:9PM Finasteride (Finasteride) 5 MG TABLET 1 Tablet ORAL DAILY Comments: Last Taken:08/31/17 Time:9AM Start taking the following new medications: Prednisone (Prednisone) 10 MG TABLET 0 ORAL SEE INSTRUCTIONS Qty = 45 No Refills Instructions: TAKE 4 TABS 40MG 09/01 TO 09/03 TAKE 3 TABS 30MG 09/04 TO 09/08 TAKE 2 TABS 20MG 09/09 TO 09/13 TAKE 1 TAB 10MG 09/15 TO 09/19 TAKE 0.5 TAB 5MG 09/20 TO 09/24 then stop Comments: Last Taken:08/31/17 Time:9AM Diltiazem HCl (Diltiazem 24HR ER) 180 MG CAP.ER.24H 1 Capsule ORAL DAILY Qty = 30 No Refills Instructions: . Comments: NOT GIVEN Azithromycin (Zithromax) 250 MG TABLET 1 Tablet ORAL DAILY Qty = 15 No Refills Instructions: . Comments: Last Taken:08/31/17 Time:9AM Cefuroxime Axetil (Cefuroxime) 250 MG TABLET 1 Tablet ORAL DAILY Qty = 2 No Refills Instructions: . Comments: Last Taken:08/31/17 Time:9AM The following medications have been changed: Old: Pantoprazole Sodium (Pantoprazole Sodium) 40 MG TABLET.DR 1 Tablet ORAL EVERY 48 HOURS (Every 2 days) Qty = 78 New: Pantoprazole Sodium (Pantoprazole Sodium) 40 MG TABLET.DR 1 Tablet ORAL DAILY Qty = 30 Comments: Last Taken:08/31/17 Time:9AM Copies To: Fanny JARRETT,Adis Lujan; Lisandro JARRETT,Jose Lujan; Krista JARRETT,Heladio
[2017-08-31] MEDS ORDERED: PREDNISONE10 M2 PO ×3 (13:17→14:16)
[2017-08-31] MEDS ORDERED: DILTIAZEM 24HR180 MG PO ×2 (13:56→14:16)
[2017-08-31] MEDS ORDERED: PANTOPRAZOLE SO40 M1 PO ×3 (14:03→14:16)
[2017-08-31] MEDS ORDERED: ZITHROMAX250 M2 PO ×2 (14:03→14:16)
--- NOTE | 2017-08-31 14:13 | PN- Pulmonary ---
Subjective HPI/Critical Care Issues: Much improved stable Objective Current Medications: Current Medications Sig/Mary Carmen Start time Last Medication Dose Route Stop Time Status Admin Acetaminophen 325 MG Q6 PRN 08/26 1700 AC PO Albuterol Sulfate 3 ML Q4P PRN 08/26 2200 AC 08/26 INH 2145 Aspirin 81 MG DAILY 08/31 1000 AC 08/31 PO 0857 Atorvastatin Calcium 20 MG 1700 08/27 1700 AC 08/30 PO 1731 Azithromycin 250 MG Q48@1000 08/31 1000 AC 08/31 PO 09/14 1001 0858 Cefuroxime Sodium 250 MG Q24 08/30 1145 AC 08/31 PO 0858 Clonazepam 0.5 MG BID PRN 08/27 1421 AC PO 09/03 1420 Diltiazem HCl 120 MG DAILY 08/27 1000 AC 08/31 PO 0853 Finasteride 5 MG DAILY 08/27 1000 AC 08/31 PO 0854 Heparin Sodium 5,000 UNIT Q8 08/30 1400 AC 08/31 (Porcine) SC 1334 Isosorbide 60 MG DAILY 08/27 1000 AC 08/31 Mononitrate PO 0855 Latanoprost 1 GTT AT BEDTIME 08/26 2200 AC 08/30 OPH 2100 Melatonin 5 MG AT BEDTIME 08/27 2200 AC 08/30 PO 2059 Omeprazole 40 MG Q48@1000 09/01 1000 DC PO Omeprazole 40 MG Q48@0700 09/01 0700 AC PO Patient Medication 1 ED ONE ONE 08/31 1100 [place] Teaching ED 08/31 1101 Patient Medication 1 ED ONE ONE 08/30 1630 KS Teaching ED 08/30 1631 Prednisone 40 MG DAILY 08/30 1000 AC 08/31 PO 09/03 1001 0857 Tamsulosin HCl 0.4 MG DAILY 08/27 1000 AC 08/31 PO 0856 Vital Signs & I&O Last 24 Hrs of Vitals and I&O: Vital Signs Date Time Temp Pulse Resp B/P B/P Pulse O2 O2 Flow FiO2 Mean Ox Delivery Rate 08/31 0856 104 156/62 08/31 0855 98.6 104 20 156/62 08/31 0642 98.2 86 20 142/76 92 08/30 2147 97.6 70 20 140/60 96 08/30 1425 98.2 78 18 140/73 93 Intake & Output 08/31 1600 08/31 0800 04 0000 Intake Total 480 800 Output Total 350 250 Balance -350 480 550 Intake, Oral 480 800 Output, Urine 350 250 Laboratory Tests 08/31 04 0715 0749 Chemistry Sodium (137 - 145 mmol/L) 137 139 Potassium (3.5 - 5.1 mmol/L) 4.2 4.4 Chloride (98 - 107 mmol/L) 102 104 Carbon Dioxide (22 - 30 mmol/L) 24 23 Anion Gap (5 - 16) 10 11 BUN (9 - 20 mg/dL) 37 H 46 H Creatinine (0.7 - 1.2 mg/dL) 1.7 H 1.7 H Estimated GFR (>60 ml/min) 38 L 38 L BUN/Creatinine Ratio (7 - 25 %) 21.8 27.1 H Magnesium (1.6 - 2.3 mg/dL) 1.8 Hematology CBC w Diff NO MAN DIFF REQ NO MAN DIFF REQ WBC (4.8 - 10.8 /CUMM) 16.4 H 15.9 H RBC (4.70 - 6.10 /CUMM) 3.04 L 3.00 L Hgb (14.0 - 18.0 G/DL) 9.6 L 9.5 L Hct (42 - 52 %) 28.8 L 28.3 L MCV (80.0 - 94.0 FL) 94.9 H 94.5 H MCH (27.0 - 31.0 PG) 31.7 H 31.7 H MCHC (33.0 - 37.0 G/DL) 33.4 33.6 RDW (11.5 - 14.5 %) 11.9 12.2 Plt Count (130 - 400 /CUMM) 538 H 529 H MPV (7.4 - 10.4 FL) 7.1 L 6.9 L Gran % (42.2 - 75.2 %) 80.6 H 81.1 H Lymphocytes % (20.5 - 51.1 %) 11.4 L 10.8 L Monocytes % (1.7 - 9.3 %) 7.7 8.0 Eosinophils % (0 - 5 %) 0.1 0 Basophils % (0.0 - 2.0 %) 0.2 0.1 Absolute Granulocytes (1.4 - 6.5 /CUMM) 13.2 H 12.9 H Absolute Lymphocytes (1.2 - 3.4 /CUMM) 1.9 1.7 Absolute Monocytes (0.10 - 0.60 /CUMM) 1.3 H 1.3 H Absolute Eosinophils (0.0 - 0.7 /CUMM) 0 0 Absolute Basophils (0.0 - 0.2 /CUMM) 0 0 Microbiology Date/Time Procedure - Status Source Growth 08/30 629 Respiratory Culture - CAN LOWER RESP Cancelled: NUMBER OF SQUAMOUS CELLS INDICATES POOR QUALITY SPECIMEN 08/30 629 Gram Stain - CAN LOWER RESP Cancelled: NUMBER OF SQUAMOUS CELLS INDICATES POOR QUALITY SPECIMEN Impression/Plan Impression/Plan Impression/Plan: ECHO CONCLUSIONS 1. Technically limited study. 2. Low normal EF of 50% with septal hypokinesis. 3. Mild left ventricular hypertrophy. 4. Mild mitral regurgitation. 5. Trace tricuspid regurgitation. 6. Moderate aortic stenosis with mild aortic regurgitation. CT IMPRESSION: 1. Compared to the prior CT chest, there has been interval development of multiple bilateral reticulonodular opacities with lower lobe predominance, right greater than left. There are associated biliary sized nodules predominantly noted in the lower lobes. Some larger irregular nodular opacities as detailed also predominantly noted in the right lower lobe. Differential possibility includes DIP, severe hypersensitivity pneumonitis or atypical sarcoidosis given the lower lobe predominance. Although there is presence of miliary nodules, the overall appearance is not typical for miliary tuberculosis. Lastly, lymphangitic carcinomatosis cannot be entirely excluded but appears less likely in the absence of mediastinal and hilar lymphadenopathy. Clinical and if indicated, biopsy correlation recommended. If biopsy is not performed, close monitoring or further assessment of the larger nodules with PET/CT recommended . 2. No gross lymphadenopathy. Reactive nodes noted in the mediastinum. DICTATED BY: Mina Gage MD DATE/TIME DICTATED:08/25/171615 VQ neg PRior PFT nil sig no sig obstructive lung disease General Appearance: Alert, Oriented X3, Cooperative, ON 2LNC Cardiovascular: Regular Rate, Normal S1, Normal S2, No Murmurs Lungs: BL wheezing, rhonchi Abdomen: Normal Bowel Sounds, Soft, No Tenderness Extremities: No Edema IMPRESSION This is an 87-year-old gentleman with history of very heavy tobacco use and quit more than 20 years ago, previous squamous cell carcinoma of the skin, coronary artery disease, previous TIA, hypertension, hyperlipidemia, spinal stenosis with back surgery, recurrent hiatal hernia followed by GI, 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 Patient does have systemic symptoms which includes 20 pound weight loss in the recent past as well. Patient is afebrile however he was on nonsteroidal. Inflammatory process versus malignancy needs to be ruled out. 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 * Mild to mod with valve area of 1.2, now with tachy Recommendation * Await all the studies.so far sjogrens is positive * Continue current antibiotics, po ceftin ( for total seven days) and change to po azithro 250 qd for total azithro of 2 weeks * Prednisone 40 for 5 days then 30 for 5 and 20 for five 10 for five and 5 mg for five * Ask Dr. Mcmahon to see the patient as he is more tachy and rpt ekg * Keep hob up * Po ppi change to qd * COnt asa * Full blood work as ordered pending Bronch will be considered if he does not have any sig response but his morbidity from it would be high and lung bx may not be ideal due to sig valvular heart dz etc (willl decide as out pt) Discussed with the family Prog guarded ok to dc
[2017-08-31] MEDS ORDERED: CEFUROXIME250 M1 PO (14:16)
--- NOTE | 2017-08-31 15:03 | PN- Cardiology ---
Subjective Subjective: * Patient is feeling well. * creatinine stable at 1.3 * transient excursions of heart rate into the 100-104 range Objective Vital Signs and I&Os Vital Signs Date Time Temp Pulse Resp B/P B/P Pulse O2 O2 Flow FiO2 Mean Ox Delivery Rate 08/31 0856 104 156/62 08/31 0855 98.6 104 20 156/62 08/31 0642 98.2 86 20 142/76 92 08/30 2147 97.6 70 20 140/60 96 Intake & Output 08/31 0000 08/30 1600 08/30 0000 Intake Total 800 480 800 820 400 800 Output Total 950 250 600 Balance -150 480 550 820 -200 800 Intake, IV 280 Intake, Oral 800 480 800 540 400 800 Output, Urine 950 250 600 Physical Exam: General: WD/WN female in NAD; alert and oriented x 3 Neck: no JVD, right carotid bruit, no bruit on right Heart: RRR with 2/6 systolic bruit Lungs: no crackles or wheezing Abdomen: soft, NT, +ve bowel sounds Extremities: no edema Assessment/Plan Assessment/Plan * This patient has mild chest discomfort that may be related to myocardial ischemia although it should be noted that this patient carries a history of chronic chest pain and has undergone multiple cardiac catheterizations that were negative for flow limiting coronary artery disease. Medical management to control chest discomfort is reasonable. Continue isosorbide, aspirin and his statin. * This patient had some transient tachycardia that is likely multifactorial and due to moderate anemia, relative dehydration (note increased creatinine yesterday) and possible exacerbated by albuterol. If there is no evidence of bronchospasm then a beta shoaib would be beneficial. In the setting of moderate aortic stenosis tachycardia will be poorly tolerated as will dehydration. The poor ability of the heart to increase cardiac output will result in a pre-renal state. I believe that patient is euvolemic at this point in time. We will give the patient a few more days to recover at home. He is stable for discharge and we will follow up with him in the office in a week. At that time, if he is not wheezing we will begin a small dose of beta shoaib or both his tachycardia and hypertension. Okay to discharge from a cardiac standpoint. Continue telemetry? No
== END 2017-08-31 15:20 | DRG 189 ==
LOC: ERH 13:30 → 2NA 15:30 → ERHI 15:30 → ENRESERV 17:18 → ENTRNSPT 17:45 → EDTRNSPT 17:54 → EDTRNSPTSTS 17:54 → 2NA 18:03 → CMPTRNSPT 18:08 → 2NA 20:01 → ENTRNSPT 08-31 14:38 → 2NA 08-31 15:20 → CMPTRNSPT 08-31 18:35
PROVIDERS: Internal Medicine; Physician Assistant Medical; Student in an Organized Health Care Education/Training Program
DX: J96.01 Acute respiratory failure with hypoxia (principal); J84.9 Interstitial pulmonary disease, unspecified; N17.9 Acute kidney failure, unspecified; Z77.22 Contact with and (suspected) exposure to environmental tobacco smoke (acute) (chronic); Z87.891 Personal history of nicotine dependence; I12.9 Hypertensive chronic kidney disease with stage 1 through stage 4 chronic kidney disease, or unspecified chronic kidney disease; N18.9 Chronic kidney disease, unspecified; D47.3 Essential (hemorrhagic) thrombocythemia; R91.8 Other nonspecific abnormal finding of lung field; R63.4 Abnormal weight loss; Z68.23 Body mass index [BMI] 23.0-23.9, adult; K22.70 Barrett's esophagus without dysplasia; K44.9 Diaphragmatic hernia without obstruction or gangrene; Z85.828 Personal history of other malignant neoplasm of skin; I25.10 Atherosclerotic heart disease of native coronary artery without angina pectoris; E78.5 Hyperlipidemia, unspecified; M48.00 Spinal stenosis, site unspecified; H40.9 Unspecified glaucoma; M19.90 Unspecified osteoarthritis, unspecified site; Z86.73 Personal history of transient ischemic attack (TIA), and cerebral infarction without residual deficits; K21.9 Gastro-esophageal reflux disease without esophagitis; N40.0 Benign prostatic hyperplasia without lower urinary tract symptoms; F41.9 Anxiety disorder, unspecified; R00.0 Tachycardia, unspecified; I73.9 Peripheral vascular disease, unspecified; E86.0 Dehydration; I35.0 Nonrheumatic aortic (valve) stenosis; D72.829 Elevated white blood cell count, unspecified; T38.0X5A Adverse effect of glucocorticoids and synthetic analogues, initial encounter
CPT/HCPCS: 2NAP; 86021; 86480; 36415; 36592; 71045; 78582; 82436; 86431; 87040; 87070; 87389; 87449; 87450; 87804; 87804-59; 88305; 93005; 93010; 96374; 96375; 99291; A9540; A9558; C8929; J0456; J0696; J1644; J2920; J2930; J3370; J3490; J7060; Q9957

== ENCOUNTER 2017-09-08 12:41 | Inpatient (IN) | payer OTHER ==
[~2017-09-08] VITALS: Ht 167.6 cm; Wt 67.1 kg
[~2017-09-08 12:41] MED LIST changes: +ASPIRIN EC81 M1 PO; +CEFUROXIME250 M1 PO; +DILTIAZEM 24HR180 MG PO; +PREDNISONE10 M2 PO; -TRAVATAN Z5 ML OPH; +TRAVATAN Z5 ML OU; +ZITHROMAX250 M2 PO
[2017-09-08 13:54] LABS: ABSOLUTE BASOPHIL COUNT 0 /CUMM (0.0-0.2); ABSOLUTE EOSINOPHIL COUNT 0 /CUMM (0.0-0.7); ABSOLUTE GRANULOCYTE CT 23.8 /CUMM (1.4-6.5); ABSOLUTE LYMPH COUNT 0.4 /CUMM (1.2-3.4); ABSOLUTE MONOCYTE COUNT 0.5 /CUMM (0.10-0.60); BASOPHIL % 0 % (0.0-2.0); EOSINOPHIL % 0 % (0-5); GRANULOCYTE % 96.5 % (42.2-75.2); HEMATOCRIT 30.9 % (42-52); MEAN CORPUSCULAR HGB 31.3 PG (27.0-31.0); MEAN CORPUSCULAR HGB CONC 32.7 G/DL (33.0-37.0); MEAN CORPUSCULAR VOLUME 95.8 FL (80.0-94.0); MEAN PLATELET VOLUME 6.9 FL (7.4-10.4); PLATELET COUNT 522 /CUMM (130-400); RBC DISTRIBUTION WIDTH 12.8 % (11.5-14.5); RED BLOOD CELL CT 3.22 /CUMM (4.70-6.10); WHITE BLOOD CELL COUNT 24.6 /CUMM (4.8-10.8)
--- NOTE | 2017-09-08 17:49 | ED PSYCHIATRIC COMPLAINT ---
History of Present Illness General Chief Complaint: Psychiatric Related Complaint Stated Complaint: SENT IN BY JASPER FOR PSYCH EVAL Source: patient, family (SON), PCP (DR HUTCHINSON) Exam Limitations: clinical condition, confusion, dementia, poor historian Vital Signs & Intake/Output Vital Signs & Intake/Output Vital Signs Date Time Temp Pulse Resp B/P B/P Pulse O2 O2 Flow FiO2 Mean Ox Delivery Rate 09/09 1216 97.4 99 18 155/68 95 Room Air 09/09 0857 95 187/81 09/09 0856 95 187/81 09/09 0636 98.3 94 18 162/91 96 Room Air 09/09 0125 98.3 80 16 152/76 98 Room Air 09/08 2247 98.6 89 17 152/70 96 Room Air 09/08 2117 98.4 90 16 165/71 98 Room Air 09/08 1538 97 18 147/68 99 Room Air ED Intake and Output 09/09 0000 09/08 1200 Intake Total 0 Output Total Balance 0 Intake, Oral 0 Patient 145 lb Weight Weight Reported by Patient Measurement Method Allergies Coded Allergies: NO KNOWN ALLERGIES (05/22/12) Triage Note: SIB DR HUTCHINSON FOR PSYCH EVALUATION. PER SON FATHER HAS BEEN INSISTING HE IS DYING OF A BRIAN LUNG DISEASE OR CANCER. RECENTLY HAD A MAJOR HEALTH WORK UP HERE. PER SON, THEY BELIEVE SOME OF HIS MEDICATIONS MAY BE ALTERING HIS THOUGHT PROCESS. PT STATES "PEOPLE HAVE BEEN MESSING WITH HIS MEDICATIONS AND STEALING THEM" PT LIVES WITH ELDERLY WHO ALSO HAS HEALTH PROBLEMS Triage Nurses Notes Reviewed? yes Onset: Abrupt Duration: day(s):, changing over time, continues in ED, getting worse Timing: single episode today Severity: moderate, severe Associated Symptoms: anxiety, impaired concentration, suicidal ideation HPI: 87-year-old male past medical history of hypertension, hyperlipidemia, interstitial lung disease presents for a psychiatric evaluation. Patient states that he was sent in by Dr. 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 Patient appears tearful but is unwilling or unable to give any additional information as to why he is here. Spoke with Dr. Hutchinson who reported that the patient has been behaving strangely since starting some new medications including prednisone. Dr. HUTCHINSON REPORTS that the patient has been making statements that he wants to hurt himself and his . According to triage note the patient's son reports that the patient is convinced that he has a life-threatening cancer. He has had multiple diagnostic tests here to the contrary. Patient declines to give any additional history. He does deny any fever or chest pain or shortness of breath. No drug or alcohol use. The son also declines any additional history. Patient currently denies suicidal or homicidal ideation. (John ENG,Jamie) Reconcile Medications Amiloride/Hydrochlorothiazide (Amiloride HCl-Hctz 5-50 MG Tab) 5 MG-50 MG TABLET 1 TAB PO DAILY BP (Reported) Clonazepam 0.5 MG TABLET 1 TAB PO BID ANXIETY (Reported) Diltiazem HCl (Diltiazem 24HR ER) 180 MG CAP.ER.24H 1 CAP PO DAILY heart . Dipyridamole W/ Aspirin (Aggrenox 25 MG-200 MG Capsule) 25 MG-200 MG CPMP.12HR 1 TAB PO BID THINNER (Reported) Finasteride 5 MG TABLET 1 TAB PO DAILY UNK (Reported) Isosorbide Mononitrate (Isosorbide Mononitrate ER) 60 MG TAB.ER.24H 1 TAB PO DAILY BP (Reported) Meloxicam 15 MG TABLET 1 TAB PO DAILY PAIN/INFLAMMATION (Reported) Pantoprazole Sodium 40 MG TABLET.DR 1 TAB PO DAILY GERD Penciclovir (Denavir) 1 % CREAM..G. 1 NORMAN TOP AD ANTIVIRAL (Reported) Prednisone 10 MG TABLET 0 PO SEE ADMIN CRITERIA LUNG INFLAMMATION TAKE 4 TABS 40MG 09/01 TO 09/03 TAKE 3 TABS 30MG 09/04 TO 09/08 TAKE 2 TABS 20MG 09/09 TO 09/13 TAKE 1 TAB 10MG 09/15 TO 09/19 TAKE 0.5 TAB 5MG 09/20 TO 09/24 then stop Simvastatin (Simvastatin*) 20 MG TABLET 1 TAB PO QPM CHOL (Reported) Tamsulosin HCl 0.4 MG CAP.ER.24H 1 CAP PO DAILY URINE (Reported) Travoprost (Travatan Z) 0.004 % DROPS 1 GTT OU QPM GLAUCOMA (Reported) (Yasemin JARRETT,Xander) Past History Travel History Traveled to [place] past 21 day No Medical History Any Pertinent Medical History? see below for history Neurological: NONE EENT: LENS INPLANT, GLAUCOMA Cardiovascular: HEART,HTN CHOL Respiratory: NONE Gastrointestinal: GERD Hepatic: NONE Renal: NONE Musculoskeletal: NONE Psychiatric: anxiety Endocrine: NONE Blood Disorders: NONE Cancer(s): SKIN CANCER History of MRSA: No History of VRE: No History of CDIFF: No Influenza Vaccine: 02/26/17 Tetanus Vaccine: 07/10/01 Surgical History Surgical History: ROTATOR CUFF Psychosocial History Who do you live with Spouse Services at Home None What is your primary language Lao Tobacco Use: Quit >30 days ago ETOH Use: denies use Illicit Drug Use: denies illicit drug use Family History Hx Contributory? No (Jamie Menchaca) Review of Systems Review of Systems Constitutional: Reports: no symptoms. EENTM: Reports: no symptoms. Respiratory: Reports: no symptoms. Cardiovascular: Reports: no symptoms. GI: Reports: no symptoms. Genitourinary: Reports: no symptoms. Musculoskeletal: Reports: no symptoms. Skin: Reports: no symptoms. Neurological/Psychological: Reports: see HPI, anxiety, confusion, depressed, emotional problems. Hematologic/Endocrine: Reports: no symptoms. Immunologic/Allergic: Reports: no symptoms. All Other Systems: Reviewed and Negative (Jamie Menchaca) Physical Exam Physical Exam General Appearance: well developed/nourished, no apparent distress, alert, awake Head: atraumatic, normal appearance Eyes: Bilateral: normal appearance, PERRL, EOMI. Ears, Nose, Throat: normal pharynx, normal ENT inspection, hearing grossly normal Neck: normal inspection, supple, full range of motion Respiratory: chest non-tender, no respiratory distress, quiet respiration, lungs clear Cardiovascular: regular rate/rhythm, normal peripheral pulses Gastrointestinal: soft, non-tender Extremities: normal range of motion Neurological/Psychiatric: no motor/sensory deficits, awake, agitated, alert Appearance/Memory/Insight: appropriate appearance, impaired insight Behavoir/Eye Contact/Speech: uncooperative, refused to answer Thoughts/Hallucinations: no apparent hallucination Skin: intact, normal color, warm/dry SAD PERSONS Done? patient not suicidal (Jamie Menchaca) Progress Differential Diagnosis: dementia, drug intoxication, drug overdose, drug withdrawal, electrolyte abnormality Hand-Off Endorsed To: Xander Hazel MD Endorsed Time: 2330 (Jamie Menchaca) Plan of Care: Orders Procedure Date/time Status Regular Diet 09/09 B Active Admit to inpatient psych 09/09 1423 Active Patient Safety Monitor 09/09 0922 Active CBC WITHOUT DIFFERENTIAL 09/09 0600 Complete Add-on Test (ER Only) 09/08 1916 Active ED CRISIS PSYCH CONSULT 09/08 1748 Active CULTURE,URINE 09/08 1342 Active Current Medications Sig/Mary Carmen Start time Last Medication Dose Stop Time Status Admin Atorvastatin Calcium 10 MG 1700 09/09 1700 UNVr (Lipitor) Diltiazem HCl 180 MG DAILY 09/09 09 UNVr 09/09 (Cardizem CD) 0856 Finasteride 5 MG DAILY 09/09 09 UNVr 09/09 (Proscar) 0857 Isosorbide 60 MG DAILY 09/09 09 UNVr 09/09 Mononitrate 0856 (Imdur) Tamsulosin HCl 0.4 MG DAILY 09/09 09 UNVr 09/09 (Flomax) 0857 Clonazepam 0.5 MG BID 09/08 2205 UNVr 09/09 (KlonoPIN) 09/15 2204 0857 Dipyridamole/Aspirin 1 CAP BID 09/08 2205 UNVr 09/09 (Aggrenox) 0856 Laboratory Tests 09/09/17 0625: CBC w Diff MAN DIFF ORDERED, RBC 3.41 L, MCV 95.3 H, MCH 30.6, MCHC 32.1 L, RDW 12.6, MPV 6.3 L, Gran % 81.5 H, Lymphocytes % 10.0 L, Monocytes % 8.2, Eosinophils % 0.3, Basophils % 0, Absolute Granulocytes 13.9 H, Segmented Neutrophils 81 H, Absolute Lymphocytes 1.7, Lymphocytes 11 L, Monocytes 8, Absolute Monocytes 1.4 H, Absolute Eosinophils 0, Absolute Basophils 0, Platelet Estimate INCREASED, Polychromasia 1+, Hypochromic-Microcytic 1+, Poikilocytosis 1+, Ovalocytes 1+, Fld Total RBCs Counted 100 Patient seen and evaluated. History is significantly limited due to patient's refusal to respond to questions. According to Dr. Hutchinson and he was sent in for psychiatric evaluation. Patient's behavior may be explained by recent prednisone use. Patient denies any chest pain shortness of breath or fever. Basic blood work was obtained and shows a severely elevated white blood cell count of 24,000. Review of patient's previous history shows that he has a chronically elevated white blood cell count and is taking prednisone. Remaining blood work is at baseline. Patient had a recent CT chest that was negative FOR PNA. No urinary symptoms but a culture was sent. There is no signs of infection. Patient will be seen by crisis. A repeat CBCs was placed in the morning. Patient will be signed out to Dr. Hay pending crisis evaluation/disposition in the morning. (Jamie Menchaca) Hand-Off Endorsed To: Crispin Grace MD Endorsed Time: 0700 Pending: consult (crisis) (Xander Hazel MD) Comments: 09/09/2017 10:22:42 AM patient's case signed out to me by Dr. 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 I have just updated the patient and his son on the plan for inpatient psychiatric placement. (Crispin Grace MD) Departure Departure Disposition: STILL A PATIENT Condition: Stable Referrals: Heladio Velasco MD (PCP/Family) Departure Forms: Customer Survey General Discharge Information (Jamie Menchaca) PA/PROGRAM THERAPIST Co-Sign Statement Statement: ED Attending supervision documentation- x I saw and evaluated the patient. I have also reviewed all the pertinent lab results and diagnostic results. I agree with the findings and the plan of care as documented in the PA's/PROGRAM THERAPIST's documentation. [] I have reviewed the ED Record and agree with the PA's/PROGRAM THERAPIST's documentation. [] Additions or exceptions (if any) to the PAs/PROGRAM THERAPIST's note and plan are summarized below: [] (Xander Hazel MD) Departure Clinical Impression Primary Impression: Cognitive disorder Secondary Impressions: Behavior concern in adult Psych Admission Note Psychiatric Admission: I have seen and evaluated JAVIER CASTRO. I have also reviewed all the pertinent lab results and diagnostic results. JAVIER CASTRO will be admitted to our inpatient Psychiatric unit for treatment and care. (Crispin Grace MD) General Discharge Information (Jamie Menchaca) PA/PROGRAM THERAPIST Co-Sign Statement Statement: ED Attending supervision documentation- x I saw and evaluated the patient. I have also reviewed all the pertinent lab results and diagnostic results. I agree with the findings and the plan of care as documented in the PA's/PROGRAM THERAPIST's documentation. [] I have reviewed the ED Record and agree with the PA's/PROGRAM THERAPIST's documentation. [] Additions or exceptions (if any) to the PAs/PROGRAM THERAPIST's note and plan are summarized below: [] (Xander Hazel MD)
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
[2017-09-08] MEDS ORDERED: AMILORIDE HCL-1 EACH PO (21:56)
[2017-09-08] MEDS ORDERED: DENAVIR5 GM TOP (21:56)
[2017-09-08] MEDS ORDERED: MELOXICAM15 M1 PO (22:00)
[2017-09-09 06:38] LABS: ABSOLUTE BASOPHIL COUNT 0 /CUMM (0.0-0.2); ABSOLUTE EOSINOPHIL COUNT 0 /CUMM (0.0-0.7); ABSOLUTE GRANULOCYTE CT 13.9 /CUMM (1.4-6.5); ABSOLUTE LYMPH COUNT 1.7 /CUMM (1.2-3.4); ABSOLUTE MONOCYTE COUNT 1.4 /CUMM (0.10-0.60); BASOPHIL % 0 % (0.0-2.0); EOSINOPHIL % 0.3 % (0-5); GRANULOCYTE % 81.5 % (42.2-75.2); HEMATOCRIT 32.5 % (42-52); MEAN CORPUSCULAR HGB 30.6 PG (27.0-31.0); MEAN CORPUSCULAR HGB CONC 32.1 G/DL (33.0-37.0); MEAN CORPUSCULAR VOLUME 95.3 FL (80.0-94.0); MEAN PLATELET VOLUME 6.3 FL (7.4-10.4); PLATELET COUNT 497 /CUMM (130-400); RBC DISTRIBUTION WIDTH 12.6 % (11.5-14.5); RED BLOOD CELL CT 3.41 /CUMM (4.70-6.10); WHITE BLOOD CELL COUNT 17.1 /CUMM (4.8-10.8)
--- NOTE | 2017-09-09 13:43 | ED PSYCHIATRIST/APRN CONSULT ---
Psychiatrist/PROFESSOR OF NURSING ED Consult Assessment and Plan: Psychiatric consultation Date of consultation September 09, 2017 Reason for consultation: Thought disorder/behavioral changes. Sources of information: The crisis intervention socially responsible investment adviser's notes by Bárbara Mai LCSW and Judith Stone LCSW The emergency room electronic health record The patient's electronic health record at [facility] The patient himself The patient's son who was present at the time of the interview Background: An 87-year-old white male who was referred to the emergency department by Dr. Escobedo for psychiatric evaluation. The following behaviors raise concern about the patient's mental state: Reportedly the patient has been insisting that he is dying of a major lung disease or cancer (the patient does have medical issues but there is nothing to suggest that he has a terminal illness) It appears that the patient may have had changes in his thought processes/mental state, he seems to think that this is related to some changes in medications, it seems that he may have told the photographic aide that he believes that "people have been messing with my medications and stealing them." Patient has some mood lability/tearfulness, he goes on very long tangents and is circumstantial /difficult to follow his thought process The patient seems to have an irritable edge to him, according to the information in the record as well as collateral from his son and seems that he has been having changes in his behavior lately. For example his been calling the police for no reason, some paranoia, although the record indicated that collateral obtained from the Rhonda indicated that he was hyperverbal and very talkative and making calls to the police for unknown reasons no he reportedly was also wandered into the neighbor's house Mental status examination: The patient was interviewed in the emergency room #10 with his son at bedside The patient was in a semisitting position and he was alert. He was oriented to time, place, and person. The patient was talkative with some pressure, he repeatedly complained that people do not allow him to finish saying what he is saying. He also complained about explaining things usually takes time. He was having however very circumstantial and very tangential making it very difficult to follow his train of thought. The description in the record through collateral information indicates that has been paranoia and some disorganization in behavior. He denied feeling depressed but he was labile with periods of tearfulness during the interview. He denied wishing and he denied thinking of suicide. He denied violent thoughts or thoughts of homicide. It seems that he has a personality style that makes him irritated when he feels that he does not have absolute control, including control of the conversation. He was abrupt with his son on more than one occasion. He was able to name the president the phlebotomy services technician on the speaker of the house he knew that he was at [facility] in the emergency department he knew the exact day and date and year. Seems to have very good General knowledge and seems to be of average or above-average intelligence the only deficit noted in the cognitive assessment was recalled he was able to recall 1 word out of 3 with prompting. Otherwise he was able to spell backwards and showed reasonably good attention and concentration during the interview. He denies hallucinations and did not seem to be responding to internal stimuli. Although the collateral indicated some paranoid thinking there was no specific delusions during the interview. Assessment: An 87-year-old white male with no known psychiatric history except maybe for anxiety. Has been on Klonopin half a milligrams twice daily for a while. Was referred to the emergency department because of changes in his mental status and behavior. The mental status showed short-term memory deficits but otherwise generally intact cognition. The mental status also showed formal thought disorder, evidence of paranoia from third democrat information but no specific delusions during the interview itself. 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 Recommendation: Continue Klonopin 0.5 mg twice daily Admit to inpatient psychiatric unit for further evaluation, workup, risk assessment, family meeting, and sitting up home services
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
[2017-09-09 15:52] VITALS: BP 140/58
[2017-09-09 20:07] VITALS: BP 140/61
[2017-09-10 08:01] VITALS: BP 123/76
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
[2017-09-10 12:26] VITALS: BP 123/64
[2017-09-10 15:42] VITALS: BP 105/57
--- NOTE | 2017-09-10 16:16 | SOCIAL WORKER PROG NOTE PSYCH ---
Social Work Progress Note Progress Note Attempted to complete psychosocial with pt. after lunch but nursing said to "hold off for now."
[2017-09-10 19:36] VITALS: BP 137/58
[2017-09-11 07:45] VITALS: BP 144/58
--- NOTE | 2017-09-11 10:12 | SOCIAL WORKER PROG NOTE PSYCH ---
Social Work Progress Note Progress Note CP [facility] requested the completion of the Social Hx be deferred. The pt was up all night, pressured and disorganized. The pt is now settled down to rest.
--- NOTE | 2017-09-11 10:46 | CP SOUTH PROGRESS NOTE PSYCH ---
See Addendum Psych (Inpt) Progress Note Progress Note Include the following elements, when applicable: Involvement in the active treatment of the patient with behavioral observations of the patient and the patient's response to the treatment. Review of the ongoing treatment process in the context of the treatment plan. Indication of how multi-disciplinary staff members are carrying out the treatment plan. Plans for future interventions and recommendations for revision of the treatment plan. Liaison with other physicians/providers. Progress Note: , zyprexa, seroquel will improve paranoia but have a higher mortality rate in those with dementia. Did some further education about managing risk factors ( hypertension for ex) of dementia and management and explained to him that I would add in as needed medications for now. MSE: elderly man, with walker, unstable gait. Irritable, talkative and not redirectable. Goes off in one sentence and does not finish it. Vague paranoid statements about security, about how he is in charge of security or they were there b/c of his request (in reference to last night they came), paranoia about his family. Labile, tearful easily and stops on his own. Speech is soft and normal rate. His thinking is derailed. Psychomotor slowing. Insight is absent, judgment is fair to poor. Cognition is impaired. A: 87 year old man with several medical comorbidities, recent medical admission, now with two weeks of disorganization, paranoia and unable to be redirected prior to admission. he did not sleep, needs near constant redirection, and is paranoid. Ddx includes dementia multifactorial most likely decompensated after med changes and hospital stay, perhaps some residual changes from stopping the clonazepam however do not anticipate it would last this long. Plan: Dr. Camejo to see him today, can give some better idea of mental status in the past and adjust med list if needed. consider neuropsych consult for deficit range when patient is more able to participate. Family is involved, would contact son Jl for family meeting and other family members, in order to discuss treatment options. I explained basics of management of agitation. Patient clearly isnt able to consent to medications at this time, though he is assenting to them. Will add in PRN meds olanzapine low dose for acute agitation, and remeron at higher dose for insomnia, but more detailed med changes for agitation should be discussed with family and primary team.
[2017-09-11 12:17] VITALS: BP 119/83
--- NOTE | 2017-09-11 13:49 | Cons- Medical ---
General Information and HPI Consulting Request Date of Consult: 09/11/17 Requested By: Jose Caputo MD History of Present Illness: MEDICINE H AND P An 87-year-old white male with no known psychiatric history except maybe for anxiety. Has been on Klonopin half a milligrams twice daily for a while. Was referred to the emergency department because of changes in his mental status and behavior. The mental status showed short-term memory deficits but otherwise generally intact cognition. Pt now admitted for unspecified neurocog disorder with anxiety and prob depression Does have sig family issues REcently dcd from [place] with multiple issues as noted in the impression Stable Now has excellent oxygen sats Allergies/Medications Allergies: Coded Allergies: NO KNOWN ALLERGIES (05/22/12) Home Med List: Amiloride/Hydrochlorothiazide (Amiloride HCl-Hctz 5-50 MG Tab) 5 MG-50 MG TABLET 1 TAB PO DAILY BP (Reported) Clonazepam 0.5 MG TABLET 1 TAB PO BID ANXIETY (Reported) Diltiazem HCl (Diltiazem 24HR ER) 180 MG CAP.ER.24H 1 CAP PO DAILY heart . Dipyridamole W/ Aspirin (Aggrenox 25 MG-200 MG Capsule) 25 MG-200 MG CPMP.12HR 1 TAB PO BID THINNER (Reported) Finasteride 5 MG TABLET 1 TAB PO DAILY UNK (Reported) Isosorbide Mononitrate (Isosorbide Mononitrate ER) 60 MG TAB.ER.24H 1 TAB PO DAILY BP (Reported) Meloxicam 15 MG TABLET 1 TAB PO DAILY PAIN/INFLAMMATION (Reported) Pantoprazole Sodium 40 MG TABLET.DR 1 TAB PO DAILY GERD Penciclovir (Denavir) 1 % CREAM..G. 1 NORMAN TOP AD ANTIVIRAL (Reported) Prednisone 10 MG TABLET 0 PO SEE ADMIN CRITERIA LUNG INFLAMMATION TAKE 4 TABS 40MG 09/01 TO 09/03 TAKE 3 TABS 30MG 09/04 TO 09/08 TAKE 2 TABS 20MG 09/09 TO 09/13 TAKE 1 TAB 10MG 09/15 TO 09/19 TAKE 0.5 TAB 5MG 09/20 TO 09/24 then stop Simvastatin (Simvastatin*) 20 MG TABLET 1 TAB PO QPM CHOL (Reported) Tamsulosin HCl 0.4 MG CAP.ER.24H 1 CAP PO DAILY URINE (Reported) Travoprost (Travatan Z) 0.004 % DROPS 1 GTT OU QPM GLAUCOMA (Reported) Review of Systems Comments nil sig no cough Past History Travel History Traveled to [place] past 21 day No Medical History Neurological: NONE EENT: LENS INPLANT, GLAUCOMA Cardiovascular: HEART,HTN CHOL Respiratory: NONE Gastrointestinal: GERD Hepatic: NONE Renal: NONE Musculoskeletal: NONE Psychiatric: anxiety Endocrine: NONE Blood Disorders: NONE Cancer(s): SKIN CANCER Surgical History Surgical History: ROTATOR CUFF Psychosocial History Where Do You Live? Home Services at Home: None ETOH Use: denies use Illicit Drug Use: denies illicit drug use Exam & Diagnostic Data Last 24 Hrs of Vital Signs/I&O Vital Signs Date Time Temp Pulse Resp B/P B/P Pulse O2 O2 Flow FiO2 Mean Ox Delivery Rate 09/11 1217 95 119/83 09/11 0939 98 144/58 09/11 0939 98 144/58 09/11 0745 96.8 98 144/58 09/10 1936 97.2 104 137/58 09/10 1542 96 105/57 Physical Exam Other Physical Findings: JENNA EOMI no jvd chest clear S1s2 edwina abd soft no edema Microbiology Date/Time Procedure - Status Source Growth 09/08 1342 Urine Culture - COMP URINE ROUT Last 24 Hrs of Labs/Jose: noted Assessment/Plan Assessment/Plan This is an 87-year-old gentleman with history of very heavy tobacco use and quit more than 20 years ago, previous squamous cell carcinoma of the skin, coronary artery disease, previous TIA, hypertension, hyperlipidemia, spinal stenosis with back surgery, recurrent hiatal hernia followed by GI, previous EGD which had shown Patricia's esophagus with hiatal hernia, biopsy done last year and no malignancy, good performance status up until recently, chronic kidney disease, mild facial twitches for which he is on Klonopin for a long period, BPH, now admitted with sig neurocog issues and anxiety and family issues His medical issues include * REcent admission with Diffuse lung disease, lower lobe predominant with sig clinical improvment now - diff dx include connective tissue isses as his sjogrens antibody was positive, and has had a lip biopsy. PT's uses multiple humidifiers etc per pt and there is also a strong possibiity this is related to that. Pt did have a sputum cytology which showed atypical cells and needs eval * Peripheral vascular disease, ischemic heart disease history in the past, previous history of TIA on dual antiplatelet therapy (aggrenox) * Patricia's esophagus negative biopsy, hiatal hernia with on and off regurg * Recent yellow-green sputum rule out infection as well. 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 Attending MD Review Statement Attending Statement Attending MD Statement: see above
[2017-09-11 15:31] VITALS: BP 116/50
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
[2017-09-11 19:33] VITALS: BP 137/51
[2017-09-12 07:53] VITALS: BP 117/57
[2017-09-12 12:00] VITALS: BP 108/68
--- NOTE | 2017-09-12 12:50 | CP SOUTH PROGRESS NOTE PSYCH ---
Psych (Inpt) Progress Note Progress Note I reviewed Dr. Yanet Tapia, MDs notes from 09/10/2017 and 09/11/2017 The patient case was discussed in treatment team meeting this morning. MSE: The patient is an 87-year-old white male who uses a walker for fall risk precaution. He was reasonably steady in his gait. He was seen in the common area (in front of the nursing station) carrying on long conversations on his own. He was not irritable today, still talkative with extreme circumstantiality and tangentiality. He is hard of hearing Vague paranoia about his family. Labile/tearful Impaired Insight and judgment. Cognition is impaired. Assessment: 87 year old man with several medical comorbidities with two weeks of disorganization, paranoia and unable to be redirected prior to admission. 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 Recommendation: Discontinue as needed Zyprexa Start Risperdal half a milligrams twice daily May use additional Risperdal 0.5 mg as needed for agitation hallucinations or irritability Change Klonopin to 1 mg at bedtime Nursing assessments, vital signs, and milieu therapy Group therapy and activity therapy, biopsychosocial assessment, collateral and family meeting, and aftercare planning in Daily mental status evaluations and medication monitoring
--- NOTE | 2017-09-12 13:10 | SOCIAL WORKER SOCIAL HX PSYCH ---
Social History Basic Assessment Insurance Authorization: Insurance #1: Insurance name: [facility] Phone number: Policy number: [id number] Group number: [id number] Authorization number: Curr Source of Income/Entitlements: [facility] Primary Care Physician: Patient's PCP: Heladio Velasco MD PCP's Present Problem: Patient was unable to be interviewed for this social work social history as he continues to present as hyper-verbal and tangential and at times circumstantial. The information in this document was obtained by ADE Dasilva seo intern. Merry called and spoke to , [phone]. SW also used information in the chart to complete this document. Primary Language? Japanese Language(s) Spoken At Home: Japanese Living Situation Rents or Owns Home? owns Allergies - Coded Allergies: NO KNOWN ALLERGIES (05/22/12) Current Medications - Scheduled Medications Amiloride/Hydrochlorothiazide (Amiloride HCl-Hctz 5-50 MG Tab) 5 MG-50 MG TABLET 1 TAB PO DAILY BP 90 Days (Reported) Entered as Reported by Dahlia Purdy on 09/08/172155 Clonazepam 0.5 MG TABLET 1 TAB PO BID ANXIETY #60 (Reported) Entered as Reported by Yesenia Perez on 04/03/17210 Diltiazem HCl (Diltiazem 24HR ER) 180 MG CAP.ER.24H 1 CAP PO DAILY heart #30 CAP Prescribed by Olaf JARRETT,[facility] on 08/31/17 Dipyridamole W/ Aspirin (Aggrenox 25 MG-200 MG Capsule) 25 MG-200 MG CPMP.12HR 1 TAB PO BID THINNER #52 (Reported) Entered as Reported by Yesenia Perez on 04/03/17210 Finasteride 5 MG TABLET 1 TAB PO DAILY UNK (Reported) Entered as Reported by Yesenia Perez on 04/03/17214 Isosorbide Mononitrate (Isosorbide Mononitrate ER) 60 MG TAB.ER.24H 1 TAB PO DAILY BP #82 (Reported) Entered as Reported by Yesenia Perez on 04/03/17211 Meloxicam 15 MG TABLET 1 TAB PO DAILY PAIN/INFLAMMATION (Reported) Entered as Reported by Dahlia Purdy on 09/08/172199 Pantoprazole Sodium 40 MG TABLET.DR 1 TAB PO DAILY GERD #30 TAB Prescribed by Karlee Babin MD on 08/31/17 Penciclovir (Denavir) 1 % CREAM..G. 1 NORMAN TOP AD ANTIVIRAL #5 (Reported) Entered as Reported by Dahlia Purdy on 09/08/172155 Prednisone 10 MG TABLET 0 PO SEE ADMIN CRITERIA LUNG INFLAMMATION #45 TAB Prescribed by Karlee Babin MD on 08/31/17 Simvastatin (Simvastatin*) 20 MG TABLET 1 TAB PO QPM CHOL #74 (Reported) Entered as Reported by Yesenia Perez on 04/03/17211 Tamsulosin HCl 0.4 MG CAP.ER.24H 1 CAP PO DAILY URINE #82 (Reported) Entered as Reported by Yesenia Perez on 04/03/17211 Travoprost (Travatan Z) 0.004 % DROPS 1 GTT OU QPM GLAUCOMA #1 (Reported) Entered as Reported by Yesenia Perez on 04/03/17212 Past History Past Medical History Neurological: NONE EENT: LENS INPLANT, GLAUCOMA Cardiovascular: HEART,HTN CHOL Respiratory: NONE Gastrointestinal: GERD Hepatic: NONE Renal: NONE Musculoskeletal: NONE Psychiatric: anxiety Endocrine: NONE Blood Disorders: NONE Cancer(s): SKIN CANCER Past Surgical History Surgical History: ROTATOR CUFF /Family History Place/Country of Origin: [place], [place] Childhood Family Constellation: Mother, Father and Sister. Parents when pt was 16 years old. Primary Childhood Caretakers: father, mother Family Life During Childhood: okay DCF Involvement? No Mother's Age (Current/): 93 () Relationship w/Mother: Distant Father's Age (Current/): 86 () Relationship w/Father: Close Any Sibling(s)? Yes Sibling's Gender(s)/Age(s): female Sibling 1: ( ten years ago) Relationship w/Sibling(s): After parents , their relationship fell apart and grew distant. Abuse/Trauma History Trauma History/Current Trauma: Denies Legal History Have you ever been arrested No Hx of Juvenile Legal Charges? No Hx of Adult Legal Charges? No Psychosocial History Primary Support System: , daughter, son Strengths/Capabilities: seeking tx for help Physical Limitations (Interventions): walker Last Physical: july History of Seizures? No History of Blackouts? No Meaningful Activities: Was able to play golf and enjoy other activities before he became incapable. Childhood Roman Catholic: Latter Day Current Denominational Affiliation: Latter Day Patient's Ethnicity: Japanese (Guatemalan), [place] Cultural/Ethnic Issues: none Are There Developmental Issues? No Milestones Achieved: fine motor, gross motor Psychiatric Treatment History Psych Treatment Inpatient Treatment No Outpatient Treatment No Diagnosis: none Risk Factors: age (under 24/over 65), chronic/serious med cond., high anxiety/ distress, isolate/no social support, male, limited support Substance Use/Abuse History Relapse History? No Have You Ever Attended AA? No Do You Attend AA Currently? No Do You Have a Sponsor? No Substance Abuse Treatment Substance Abuse Treatment Inpatient Treatment No Outpatient Treatment No Sexual History Sexual Orientation Heterosexual Education History Highest Level of Education: high school/GED Highest Grade Completed: 12 Preferred Learning Style: visual, experiential HX of Learning Difficulties: None reported Barriers to Learning: None reported Special Communication Needs: None reported Employment History Employment Retired Not in Labor Force: Retired No. of Jobs in Last 5 Years: 0 Attendance: Normal Performance: Good History Have You Been in The ? Yes If Yes, Explain: [employer] and was medically dishcharged. Type of Discharge: Medical Current Mental Status Mental Status Orientation: Confused Affect: Depressed, Sad Speech: Hyper-verbal Neuro-vegetative: Anhedonia, Appetite Decreased, Concentration Poor, Energy Decreased, Helpless, Sleep Disturbance Appearance Appearance- Dress/Hygiene: Pt is dressed in casual clothes, wearing glasses, wearing hearing aids Behaviors Thought Process: Irrational Thought Content: Paranoid Memory: WNL Insight: Fair SI/HI Risk Assessment Past Suicidal Ideation/Attempts No Current Suicidal Ideation/Att No Past Homicidal Ideation/Att: No Current Homicidal Ideation/Attempts No Degree of Intent: None Gravely Disabled: Inability Risk Factors: Male Lethality Ratin (mild) - Conclusion and Recommendations for treatment - and discharge planning
[2017-09-12 15:53] VITALS: BP 136/61
--- NOTE | 2017-09-12 17:53 | SOCIAL WORKER PROG NOTE PSYCH ---
See Addendum Social Work Progress Note Progress Note This screen writer met with patient. Dr. Caputo also attended this meeting. Patient reported that his mood as "pretty damn good 'cause people are starting to listen." Patient was agreeable to a family meeting, however, was unable to decide who he would like to attend this meeting. Patient ultimately stated that he would like his son and son in law to attend. Upon inquiry by Dr. Caputo, patient denied AH ("I don't hear voices!") and stated that he feels safe on this unit. Patient's son, Navi, visited during visiting hours today. This screen writer and Navi had multiple attempts to reach by phone, but were unsuccessful. This screen writer spoke with Navi and the patient briefly in effort to schedule a family meeting. Navi stated that his father believed that his entire family was coming to [facility] at 4pm today for a family meeting. Patient was, as before, unable to decide who he would like to participate in a family meeting. It was ultimately decided that this screen writer would discuss this further with the team and follow up with Navi.
[2017-09-12 19:37] VITALS: BP 115/60
[2017-09-13 08:21] VITALS: BP 137/65
[2017-09-13 12:46] VITALS: BP 133/49
--- NOTE | 2017-09-13 13:57 | CP SOUTH PROGRESS NOTE PSYCH ---
Psych (Inpt) Progress Note Progress Note The patient's treatment, progress, and aftercare plans were discussed in treatment team meeting this morning. Vital Signs Date Time Temp Pulse B/P B/P Pulse O2 O2 Flow FiO2 09/13 1246 98 133/49 09/13 0834 89 137/65 09/13 0833 89 137/65 09/13 0821 97.3 89 137/65 Mental status examination: The patient was placed on one-to-one supervision and uses a walker for fall risk precaution. He continues to carry on long winded conversations by himself There was no irritability today. He is a still tangential and circumstantial and difficult to follow. occasionally uses a profanities when he is telling stories, mostly in reference to his , Vague paranoia about his family. There was no tearfulness today. Impaired Insight and judgment. Cognition is impaired. Assessment: 87 year old man with several medical comorbidities with two weeks of disorganization, paranoia and unable to be redirected prior to admission. 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 Recommendation: Change Risperdal to 1 mg around 5 PM May use additional Risperdal 0.5 mg as needed for agitation hallucinations or irritability Continue Klonopin 1 mg at bedtime May use half a milligram of Xanax if he is not asleep 2 hours after the Klonopin or if he wakes up in the middle of the night Add on labs of vitamin B12 level and VDRL was requested Will supplement with vitamin B complex Group therapy and activity therapy, biopsychosocial assessment, collateral and family meeting, and aftercare planning in Daily mental status evaluations and medication monitoring
[2017-09-13 16:23] VITALS: BP 128/49
--- NOTE | 2017-09-13 18:13 | SOCIAL WORKER PROG NOTE PSYCH ---
Social Work Progress Note Progress Note This insurance underwriter sales spoke with patient's son, Navi. A family meeting is scheduled for at 1:30pm. Navi stated that he would contact the patient's , daughters and [id number] regarding this meeting. This insurance underwriter sales met with patient. He was informed of the family meeting time, to which he was in agreement. Patient presented as tangential and circumstantial. It was difficult to redirect him during the conversation. At the end of the conversation, patient stated, "1:30 tomorrow, on the dot."
--- NOTE | 2017-09-13 18:31 | Cons- Cardiology ---
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 He was recently admitted to [facility] for evaluation of worsening shortness of breath, productive cough and fatigue that he had experienced over the preceding couple weeks. Workup showed diffuse lung disease with atypical cells, a positive Sjogren antibody and moderate aortic stenosis. This patient was brought to the ER for evaluation of mental status changes with decreased short term memory. He appeared depressed, anxious and despondent with possible unjustified concern of fatal lung disease. The patient cannot offer a cogent history. He is labile and is not coherent in his speech. He does not appear to have any current shortness of breath, chest discomfort or lightheadedness. Allergies/Medications Allergies: Coded Allergies: NO KNOWN ALLERGIES (05/22/12) Home Med List: Amiloride/Hydrochlorothiazide (Amiloride HCl-Hctz 5-50 MG Tab) 5 MG-50 MG TABLET 1 TAB PO DAILY BP (Reported) Clonazepam 0.5 MG TABLET 1 TAB PO BID ANXIETY (Reported) Diltiazem HCl (Diltiazem 24HR ER) 180 MG CAP.ER.24H 1 CAP PO DAILY heart . Dipyridamole W/ Aspirin (Aggrenox 25 MG-200 MG Capsule) 25 MG-200 MG CPMP.12HR 1 TAB PO BID THINNER (Reported) Finasteride 5 MG TABLET 1 TAB PO DAILY UNK (Reported) Isosorbide Mononitrate (Isosorbide Mononitrate ER) 60 MG TAB.ER.24H 1 TAB PO DAILY BP (Reported) Meloxicam 15 MG TABLET 1 TAB PO DAILY PAIN/INFLAMMATION (Reported) Pantoprazole Sodium 40 MG TABLET.DR 1 TAB PO DAILY GERD Penciclovir (Denavir) 1 % CREAM..G. 1 NORMAN TOP AD ANTIVIRAL (Reported) Prednisone 10 MG TABLET 0 PO SEE ADMIN CRITERIA LUNG INFLAMMATION TAKE 4 TABS 40MG 09/01 TO 09/03 TAKE 3 TABS 30MG 09/04 TO 09/08 TAKE 2 TABS 20MG 4/13 TO 09/13 TAKE 1 TAB 10MG 09/15 TO 09/19 TAKE 0.5 TAB 5MG 09/20 TO 09/24 then stop Simvastatin (Simvastatin*) 20 MG TABLET 1 TAB PO QPM CHOL (Reported) Tamsulosin HCl 0.4 MG CAP.ER.24H 1 CAP PO DAILY URINE (Reported) Travoprost (Travatan Z) 0.004 % DROPS 1 GTT OU QPM GLAUCOMA (Reported) Review of Systems Review of Systems: A review of systems in not obainable in this patient Past History Travel History Traveled to [place] past 21 day No Medical History Neurological: NONE EENT: LENS INPLANT, GLAUCOMA Cardiovascular: HEART,HTN CHOL Respiratory: NONE Gastrointestinal: GERD Hepatic: NONE Renal: NONE Musculoskeletal: NONE Psychiatric: anxiety Endocrine: NONE Blood Disorders: NONE Cancer(s): SKIN CANCER Surgical History Surgical History: ROTATOR CUFF Psychosocial History Where Do You Live? Home Services at Home: None ETOH Use: denies use Illicit Drug Use: denies illicit drug use Employment History Employment: Retired Exam & Diagnostic Data Vital Signs and I&O Vital Signs Date Time Temp Pulse Resp B/P B/P Pulse O2 O2 Flow FiO2 Mean Ox Delivery Rate 09/13 1623 97 128/49 09/13 1246 98 133/49 09/13 0834 89 137/65 09/13 0833 89 137/65 09/13 0821 97.3 89 137/65 09/12 1937 98.5 100 115/60 Physical Exam: General: WD/WN female in NAD; alert and oriented x 3 HEENT: NC with right ear deformity related to surgery, PERRL, EOMi Neck: no JVD, right carotid bruit, no bruit on right Heart: RRR with 2/6 systolic bruit Lungs: no crackles or wheezing Abdomen: soft, NT, +ve bowel sounds Extremities: no edema Assessment/Plan Assessment/Plan * This patient does not express any current somatic complaints although he is concerned about his longevity and the health of his . He clearly has issues of stress and depression. * Néstor is known to have mild chest discomfort that may be related to myocardial ischemia although it should be noted that this patient carries a history of chronic chest pain and has undergone multiple cardiac catheterizations that were negative for flow limiting coronary artery disease. Medical management to control chest discomfort is reasonable. Continue isosorbide, aspirin and his statin. * This patient had intermittent tachycardia that is likely multifactorial and due to moderate anemia with possible exacerbated by albuterol. He also has aortic regurgitation along with aortic stenosis and therefore may need to increase his heart rate to maintain his cardiac output since his effective stroke volume is lessened. Finally, some anxiety is also playing a role. In the setting of moderate aortic stenosis tachycardia will be poorly tolerated as will dehydration. The poor ability of the heart to increase cardiac output will result in a pre-renal state. I believe that patient is euvolemic at this point in time. I would not employ a beta shoaib due to its propensity toward bronchospasm and depression. Continue Cardizem at its current dose. In the setting of moderate aortic stenosis tachycardia will be poorly tolerated as will dehydration. The poor ability of the heart to increase cardiac output will result in a pre-renal state. Fortunately, I believe that patient is euvolemic at this point in time. Consult Acknowledgment - Thank you for your consult request.
[2017-09-13 20:03] VITALS: BP 111/54
--- NOTE | 2017-09-13 20:36 | History & Physical ---
General Information and HPI MD Statement: I have seen and personally examined JAVIER CASTRO and documented this H&P. The patient is a 87 year old M who presented with a patient stated chief complaint of "people are messing up with my meds". Source of Information: patient, family, old records Exam Limitations: unable to give history History of Present Illness: 87-year-old white male was in the hospital recently long issues. Had gone home and was following with Adis Escobedo MD the day he went to his office patient was not acting right patient stated that he "thought he was dying of major lung disease or cancer". Was brought to the ER for a psych evaluation patient has had decreased sleep decreased appetite. He had been on Klonopin in the past low dose aspirin for some reason was not given is admitted for evaluation Allergies/Medications Allergies: Coded Allergies: NO KNOWN ALLERGIES (05/22/12) Home Med list Amiloride/Hydrochlorothiazide (Amiloride HCl-Hctz 5-50 MG Tab) 5 MG-50 MG TABLET 1 TAB PO DAILY BP (Reported) Clonazepam 0.5 MG TABLET 1 TAB PO BID ANXIETY (Reported) Diltiazem HCl (Diltiazem 24HR ER) 180 MG CAP.ER.24H 1 CAP PO DAILY heart . Dipyridamole W/ Aspirin (Aggrenox 25 MG-200 MG Capsule) 25 MG-200 MG CPMP.12HR 1 TAB PO BID THINNER (Reported) Finasteride 5 MG TABLET 1 TAB PO DAILY UNK (Reported) Isosorbide Mononitrate (Isosorbide Mononitrate ER) 60 MG TAB.ER.24H 1 TAB PO DAILY BP (Reported) Meloxicam 15 MG TABLET 1 TAB PO DAILY PAIN/INFLAMMATION (Reported) Pantoprazole Sodium 40 MG TABLET.DR 1 TAB PO DAILY GERD Penciclovir (Denavir) 1 % CREAM..G. 1 NORMAN TOP AD ANTIVIRAL (Reported) Prednisone 10 MG TABLET 0 PO SEE ADMIN CRITERIA LUNG INFLAMMATION TAKE 4 TABS 40MG 09/01 TO 09/03 TAKE 3 TABS 30MG 09/04 TO 09/08 TAKE 2 TABS 20MG 09/09 TO 09/13 TAKE 1 TAB 10MG 09/15 TO 09/19 TAKE 0.5 TAB 5MG 09/20 TO 09/24 then stop Simvastatin (Simvastatin*) 20 MG TABLET 1 TAB PO QPM CHOL (Reported) Tamsulosin HCl 0.4 MG CAP.ER.24H 1 CAP PO DAILY URINE (Reported) Travoprost (Travatan Z) 0.004 % DROPS 1 GTT OU QPM GLAUCOMA (Reported) Compliance With Home Meds: UNKNOWN Past History Travel History Traveled to [place] past 21 day No Medical History Neurological: NONE EENT: LENS INPLANT, GLAUCOMA Cardiovascular: HEART,HTN CHOL Respiratory: NONE Gastrointestinal: GERD Hepatic: NONE Renal: NONE Musculoskeletal: NONE Psychiatric: anxiety Endocrine: NONE Blood Disorders: NONE Cancer(s): SKIN CANCER History of MRSA: No History of VRE: No History of CDIFF: No Isolation History: Standard Influenza Vaccine: 02/26/17 Tetanus Vaccine: 07/10/01 Surgical History Surgical History: ROTATOR CUFF Past Family/Social History Psychosocial History Where do you live? Home Services at Home: None ETOH Use: denies use Illicit Drug Use: denies illicit drug use Employment History Employment Retired Review of Systems Review of Systems Constitutional: Reports: see HPI. Exam & Diagnostic Data Last 24 Hrs of Vital Signs/I&O Vital Signs Date Time Temp Pulse Resp B/P B/P Pulse O2 O2 Flow FiO2 Mean Ox Delivery Rate 09/13 2002 97.8 93 111/54 09/13 1623 97 128/49 09/13 1246 98 133/49 09/13 0834 89 137/65 09/13 0833 89 137/65 09/13 0821 97.3 89 137/65 Physical Exam General Appearance Alert, Oriented X3, Cooperative, No Acute Distress Skin is dry HEENT PERRLA, EOMI Neck Supple, No JVD, No thryomegaly Lymphatic Axillary nl, Cervical nl Cardiovascular Regular Rate Lungs decreased breath sounds Abdomen Soft, No Tenderness Neurological Exam Findings: Normal Gait, Normal Speech, Strength at 5/5 X4 Ext, Normal Tone, Sensation Intact, decreased hearing Cranial Nerves II through XII: Decreased hearing Extremities No Edema Vascular decreased pulses Diagnostic Data ITS Data Unobtainable at this time Assessment/Plan As Ranked By This Provider Problem List: 1. Cognitive disorder 2. Behavior concern in adult Miscellaneous Miscellaneous Documentation Attending Case Discussed With: Jose Caputo MD Primary Care Physician: Heladio Velasco MD Patient sees these Specialists Psychiatry Level of Patient Care: [facility] Consults Needed: Consulting Specialty: Psychiatry Consulting Physician: Dr. Fishman Reason for Consult: behavioral changes
[2017-09-14 09:35] VITALS: BP 137/60
[2017-09-14 11:36] VITALS: BP 102/56
--- NOTE | 2017-09-14 12:12 | CP SOUTH PROGRESS NOTE PSYCH ---
Psych (Inpt) Progress Note Progress Note The patient's treatment, progress, and aftercare plans were discussed in treatment team meeting this morning. Vital Signs Date Time Temp Pulse Resp B/P 09/14 1136 92 102/56 09/14 0935 97.0 104 137/60 09/14 0914 97.8 93 18 111/54 09/14 0914 97.8 93 18 111/54 Mental status examination: The patient is on a sitter /constant supervision for fall risk precautions. He uses a walker for stability. The patient continues to carry on long winded conversations by himself. There was no irritability today. He is a still tangential, circumstantial and difficult to follow. He is labile/tearful at times. He voices vague paranoia, he has impaired insight and judgment, and poor attention/concentration, impaired short-term memory and information processing. Assessment: An 87-year-old man with admitted to inpatient psych following two weeks of disorganization, paranoia and talking to self. 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 Treatment Plan: Risperdal 1 mg around 5 PM May use additional Risperdal 0.5 mg as needed for agitation hallucinations or irritability Continue Klonopin 1 mg at bedtime May use half a milligram of Xanax if he is not asleep 2 hours after the Klonopin or if he wakes up in the middle of the night Add on labs of vitamin B12 level and VDRL was requested May use half a milligram of Xanax if he is not asleep 2 hours after the Klonopin or if he wakes up in the middle of the night Add on labs of vitamin B12 level and VDRL was requested Will supplement with vitamin B complex Group therapy and activity therapy, biopsychosocial assessment, collateral and family meeting, and aftercare planning in Daily mental status evaluations and medication monitoring
--- NOTE | 2017-09-14 16:58 | SOCIAL WORKER PROG NOTE PSYCH ---
Social Work Progress Note Progress Note Dr. Caputo and this sports writer met with the patient's family (Rhonda, ; Navi, son; Ray, son-in-law; Aida, daughter; Leola, daughter). Dr. Caputo reviewed treatment and concerns with the family. Family stated that they would like further medical work up and inquired about admission to the medical floor. While they are not willing to consider a mcfp or rehab facility, they stated that in home care options would be reviewed/discussed once discharge date is determined according to patient's needs at that time. Family was informed that this sports writer spoke with Case Management (Ling Yao) who recommended that [facility] is contacted (per patient's insurance) regarding in home services. Dr. Caputo will contact the patient's primary care provider regarding a medical inpatient admission. Patient's stated that she would contact him as well.
--- NOTE | 2017-09-14 17:11 | MRI REPORT ---
EXAMINATION: MR BRAIN WITHOUT CONTRAST CLINICAL INFORMATION: Acute/subacute mental status changes. COMPARISON: CT scan of the head 04/03/2017. TECHNIQUE: MRI of the brain without contrast was obtained using routine sequences. FINDINGS: No diffusion abnormalities are identified to suggest an acute or subacute infarct. No mass effect or midline shift is seen. The ventricles and sulci commensurately prominent consistent with [id number] diffuse volume loss. There are relatively extensive scattered areas of T2 and FLAIR hyperintensity in the periventricular and subcortical white matter and in the alicja consistent with chronic microvascular ischemic changes. There are lacunar infarcts in the bilateral durant radiata, more extensive on the right. No extra-axial fluid collections are seen. The cerebellum appears normal. No pathologic magnetic susceptibility artifact is identified on the gradient refocused acquisition. The craniovertebral junction, marrow signal, and midline structures are normal. The major intracranial flow-voids at the level of the [place] are preserved. The dural venous sinus flow-voids are maintained. The mastoid air cells are well-aerated. There is minimal mucoperiosteal thickening in the ethmoid sinuses bilaterally. The nasal septum is deviated to the right and there is a right-sided bony nasal septal spur. IMPRESSION: 1. There are no acute bleeds or infarcts. 2. There is diffuse volume loss. 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
[2017-09-14 18:14] VITALS: BP 103/52
[2017-09-14 20:00] VITALS: BP 122/57
[2017-09-15 08:18] VITALS: BP 121/48
--- NOTE | 2017-09-15 08:55 | CP SOUTH PROGRESS NOTE PSYCH ---
Psych (Inpt) Progress Note Progress Note Vital Signs Date Time Temp Pulse B/P O2 FiO2 09/15 0818 96.9 95 121/48 09/15 1999 96.6 98 122/57 09/14 1814 92 103/52 The patient's treatment, progress, and aftercare plans were discussed in treatment team meeting this morning. Nursing reported that in the past 24 hours there was an episode or 2 of fecal incontinence. At the same time this morning the patient had severe constipation /impacted. The patient was manually disimacted and put on stool softener and as needed milk of magnesia if constipation recurs Mental status examination: The patient is on a sitter /constant supervision for fall risk precautions. He uses a walker for stability. The patient scored 22/30 on mini-mental status exam continues to carry on long winded conversations by himself. There was no irritability today, still tangential, circumstantial and difficult to follow. He is labile/tearful at times. I did not observe any parania today, poor attention/concentration, impaired short-term memory and information processing. Assessment: An 87-year-old man with admitted to inpatient psych due to disorganization, paranoia and talking to self. No known history of neurocognitive disorder or dementia FINDINGS: No diffusion abnormalities are identified to suggest an acute or subacute infarct. No mass effect or midline shift is seen. The ventricles and sulci commensurately prominent consistent with qoct-gl-yupyoxuv diffuse volume loss. There are relatively extensive scattered areas of T2 and FLAIR hyperintensity in the periventricular and subcortical white matter and in the alicja consistent with chronic microvascular ischemic changes. There are lacunar infarcts in the bilateral durant radiata, more extensive on the right. No extra-axial fluid collections are seen. The cerebellum appears normal. No pathologic magnetic susceptibility artifact is identified on the gradient refocused acquisition. Brain MRI's findings: The craniovertebral junction, marrow signal, and midline structures are normal. The major intracranial flow-voids at the level of the [place] are preserved. The dural venous sinus flow-voids are maintained. The mastoid air cells are well-aerated. There is minimal mucoperiosteal thickening in the ethmoid sinuses bilaterally. The nasal septum is deviated to the right and there is a right-sided bony nasal septal spur. IMPRESSION: 1. There are no acute bleeds or infarcts. 2. There is diffuse volume loss. 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 Treatment Plan: Risperdal 1 mg around 5 PM D/C PRN Risperdal Continue Klonopin 1 mg at bedtime May use half a milligram of Xanax if he is not asleep 2 hours after the Klonopin or if he wakes up in the middle of the night Neurology consult
[2017-09-15 12:11] VITALS: BP 110/52
[2017-09-15] MEDS ORDERED: ATORVASTATIN CA10 M1 PO (13:59)
[2017-09-15] MEDS ORDERED: DOCUSATE SODIU100 M3 PO (13:59)
[2017-09-15] MEDS ORDERED: ALPRAZOLAM0.5 M4 PO (13:59)
[2017-09-15] MEDS ORDERED: RISPERDAL1 M1 PO (13:59)
[2017-09-15] MEDS ORDERED: KLONOPIN1 M1 PO (13:59)
--- NOTE | 2017-09-15 14:02 | Patient Discharge Instructions ---
Psych Discharge Inst General Discharge Information Reason for Admission: mental status changes Psy Discharge Primary Diag+ unspecified neuro-cogniti MCI Summary Tests/Major Procedures See the patient's electronic health record for details Studies Pending at DC: None Patient Instructions Contact Information Your Psychiatrist on [facility] was Jose Caputo MD * If you are experiencing an emergency related to this hospitalization, please call [phone] to contact the treating psychiatrist or the psychiatrist-on- call. * To Request a copy of your medical records, please contact the Medical Records Department at [phone]. * To request results of studies pending at the time of discharge, please call [phone]. * Continue your Medications until directed to stop by your Healthcare provider. General Medication Information Please continue to take your new medications and your continued home medications , unless otherwise indicated on your discharge medication list, or unless directed by your MD or [employer] to stop them. Special Instructions Diet Heart Healthy Activity As Tolerated - Tobacco Use Treatment Offered Post DC Medications Offered: Not Applicable Post DC Tobacco Treatment Plan: Not Applicable - EtOH/Drug Use D/O Treatment Offered Post DC Medications Offered: NA-No EtOH/Drug Use D/O Post DC EtOH/SubAbuse TX Plan: NA-No EtOH/Drug Use D/O Metabolic Screening Patient on a neuroleptic(s) . Enter below results for Hemoglobin A1C, and lipid panel if obtained during the last 365 days. BMI: 23.800 Blood Pressure: 110/52 Laboratory Results From [facility] (If applicable): Lab Cholesterol 121 MG/DL 12/09/15 0700 Cholesterol/HDL Ratio 2 % 12/09/15 07 HDL Cholesterol 59 mg/dL 12/09/15 0700 Hemoglobin A1c 6.4 % H 03/06/13 UNK LDL Cholesterol, Calc 51 mg/dL L 12/09/15 0700 Triglycerides 56 mg/dL 12/09/15 0700 Advance Directives Does the Patient have Medical Advance Directives No/Per pt req info given Does Pt have Psychiatric Advance Directives? No/Per pt req info provid Does Patient have a Designated Surrogate Decision Maker: No Information About Psychiatric Advance Directives Provided? Unable to Comprehend Discharge Plan Post Hospital Treatment Plan: N/A going to medical floor
--- NOTE | 2017-09-15 14:56 | DISCHARGE SUMMARY REPORT-PSYCH ---
Visit Information Visit Dates/Diagnosis' Admission Date: 09/09/17 Discharge Date: 09/15/17 Reason for Admission: mental status changes Psy Discharge Primary Diag: unspecified neuro-cogniti MCI Hospital Course Course Allergies: Coded Allergies: NO KNOWN ALLERGIES (05/22/12) Hospital Course/TX Response: Vital Signs Date Time Temp Pulse B/P O2 FiO2 09/15 817 96.9 95 121/48 09/15 1999 96.6 98 122/57 09/14 1814 92 103/52 The patient's treatment, progress, and aftercare plans were discussed in treatment team meeting this morning. Nursing reported that in the past 24 hours there was an episode or 2 of fecal incontinence. At the same time this morning the patient had severe constipation /impacted. The patient was manually disimacted and put on stool softener and as needed milk of magnesia if constipation recurs Mental status examination: The patient is on a sitter /constant supervision for fall risk precautions. He uses a walker for stability. The patient scored 22/30 on mini-mental status exam continues to carry on long winded conversations by himself. There was no irritability today, still tangential, circumstantial and difficult to follow. He is labile/tearful at times. I did not observe any parania today, poor attention/concentration, impaired short-term memory and information processing. Assessment: An 87-year-old man with admitted to inpatient psych due to disorganization, paranoia and talking to self. No known history of neurocognitive disorder or dementia FINDINGS: No diffusion abnormalities are identified to suggest an acute or subacute infarct. No mass effect or midline shift is seen. The ventricles and sulci commensurately prominent consistent with ifjg-fu-snifrfsw diffuse volume loss. There are relatively extensive scattered areas of T2 and FLAIR hyperintensity in the periventricular and subcortical white matter and in the alicja consistent with chronic microvascular ischemic changes. There are lacunar infarcts in the bilateral durant radiata, more extensive on the right. No extra-axial fluid collections are seen. The cerebellum appears normal. No pathologic magnetic susceptibility artifact is identified on the gradient refocused acquisition. Brain MRI's findings: The craniovertebral junction, marrow signal, and midline structures are normal. The major intracranial flow-voids at the level of the [place] are preserved. The dural venous sinus flow-voids are maintained. The mastoid air cells are well-aerated. There is minimal mucoperiosteal thickening in the ethmoid sinuses bilaterally. The nasal septum is deviated to the right and there is a right-sided bony nasal septal spur. IMPRESSION: 1. There are no acute bleeds or infarcts. 2. There is diffuse volume loss. 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 Treatment Plan: Risperdal 1 mg around 5 PM D/C PRN Risperdal Continue Klonopin 1 mg at bedtime May use half a milligram of Xanax if he is not asleep 2 hours after the Klonopin or if he wakes up in the middle of the night Neurology consult Discharge HBIPS - Tobacco Use Treatment Offered - EtOH/Drug Use D/O Treatment Offered Metabolic Screening - Screen if on a Neuroleptic Medication - Metabolic screening should include: - Blood Pressure, BMI, Glucose or Hgb A1c, & a - Lipid profile from within the past 365 days. Discharge Instructions General Discharge Information Discharge Diet Heart Healthy Discharge Activity As Tolerated Prescriptions Stop taking the following medications: Clonazepam (Clonazepam) 0.5 MG TABLET ORAL TWICE DAILY Qty = 60 Simvastatin (Simvastatin*) 20 MG TABLET ORAL Every night Qty = 74 Prednisone (Prednisone) 10 MG TABLET ORAL SEE INSTRUCTIONS Qty = 45 Pantoprazole Sodium (Pantoprazole Sodium) 40 MG TABLET.DR ORAL DAILY Qty = 30 Penciclovir (Denavir) 1 % CREAM..G. On the skin As Directed Qty = 5 Amiloride/Hydrochlorothiazide (Amiloride HCl-Hctz 5-50 MG Tab) 5 MG-50 MG TABLET ORAL DAILY Days = 90 Meloxicam (Meloxicam) 15 MG TABLET ORAL DAILY Continue taking these medications: Dipyridamole W/ Aspirin (Aggrenox 25 MG-200 MG Capsule) 25 MG-200 MG CPMP.12HR 1 Tablet ORAL TWICE DAILY Qty = 52 Comments: NOT GIVEN Tamsulosin HCl (Tamsulosin HCl) 0.4 MG CAP.ER.24H 1 Capsule ORAL DAILY Qty = 82 Comments: Last Taken:08/31/17 Time:9AM Isosorbide Mononitrate (Isosorbide Mononitrate ER) 60 MG TAB.ER.24H 1 Tablet ORAL DAILY Qty = 82 Comments: Last Taken:08/31/17 Time:9AM Travoprost (Travatan Z) 0.004 % DROPS 1 Drop Both Eyes Every night Qty = 1 Comments: Last Taken:08/30/17 Time:9PM Finasteride (Finasteride) 5 MG TABLET 1 Tablet ORAL DAILY Comments: Last Taken:08/31/17 Time:9AM Diltiazem HCl (Diltiazem 24HR ER) 180 MG CAP.ER.24H 1 Capsule ORAL DAILY Qty = 30 Instructions: . Comments: NOT GIVEN Start taking the following new medications: Atorvastatin Calcium (Atorvastatin Calcium) 10 MG TABLET 10 Milligram ORAL 5 PM Qty = 1 No Refills Clonazepam (Klonopin) 1 MG TABLET 1 Milligram ORAL 2000 Qty = 1 No Refills Risperidone (Risperdal) 1 MG TABLET 1 Milligram ORAL 5 PM Qty = 1 No Refills Alprazolam (Alprazolam) 0.5 MG TABLET 0.5 Milligram ORAL AT BEDTIME NEEDED as needed for INSOMNIA Qty = 1 No Refills Docusate Sodium (Docusate Sodium) 100 MG CAPSULE 100 Milligram ORAL THREE TIMES DAILY Qty = 3 No Refills Studies Pending at Discharge None
[2017-09-15 15:47] VITALS: BP 130/51
--- NOTE | 2017-09-15 17:49 | SOCIAL WORKER PROG NOTE PSYCH ---
Social Work Progress Note Progress Note This manual writer spoke with Dr. Caputo, and was informed that the patient would be transferred to the medical floor this afternoon. This manual writer spoke with Louise ([phone], ext. [phone]) for a review. Clinical was provided and she was informed of the plan to transfer the patient to the medical floor this afternoon. Louise stated that she would discharge the patient and if he returns to [facility], a pre-cert would need to be complete. Per [place], an IOP referral was listed on the patient's [facility] discharge forms with the phone number to [facility]. This manual writer met with patient. He reported his mood as good. Patient was sitting by the fish tank on [facility] with a sitter. He was tangential and circumstantial during the conversation. Patient's arrived to visit. This manual writer received call from patient's son, Navi Curran ([phone]) who was informed, upon his inquiry, that the patient would be transferred to the medical floor this afternoon.
[2017-09-15 18:03] VITALS: BP 126/52
--- NOTE | 2017-09-15 19:03 | SOCIAL WORKER PROG NOTE PSYCH ---
Social Work Progress Note Faxed Referral(s) Referred To: [facility] Transition of Care Documents sent: Health Summary, W10 Faxed to: [facility] Fax #: [phone] Faxed by: Avery Fox [facility] Date faxed: 09/15/17
--- NOTE | 2017-09-15 19:38 | History & Physical ---
General Information and HPI Source of Information: patient, family, old records Exam Limitations: unable to give history Allergies/Medications Allergies: Coded Allergies: NO KNOWN ALLERGIES (05/22/12) Home Med list Alprazolam 0.5 MG TABLET 0.5 MG PO AT BEDTIME NEEDED PRN INSOMNIA Atorvastatin Calcium 10 MG TABLET 10 MG PO 1700 cholesterol Clonazepam (Klonopin) 1 MG TABLET 1 MG PO 2000 anxiety Diltiazem HCl (Diltiazem 24HR ER) 180 MG CAP.ER.24H 1 CAP PO DAILY heart . Dipyridamole W/ Aspirin (Aggrenox 25 MG-200 MG Capsule) 25 MG-200 MG CPMP.12HR 1 TAB PO BID THINNER (Reported) Docusate Sodium 100 MG CAPSULE 100 MG PO TID constipation Finasteride 5 MG TABLET 1 TAB PO DAILY UNK (Reported) Isosorbide Mononitrate (Isosorbide Mononitrate ER) 60 MG TAB.ER.24H 1 TAB PO DAILY BP (Reported) Risperidone (Risperdal) 1 MG TABLET 1 MG PO 1700 paranoia, thought disorganizat Tamsulosin HCl 0.4 MG CAP.ER.24H 1 CAP PO DAILY URINE (Reported) Travoprost (Travatan Z) 0.004 % DROPS 1 GTT OU QPM GLAUCOMA (Reported) Compliance With Home Meds: UNKNOWN Past History Travel History Traveled to [place] past 21 day No Medical History Neurological: NONE EENT: LENS INPLANT, GLAUCOMA Cardiovascular: HEART,HTN CHOL Respiratory: NONE Gastrointestinal: GERD Hepatic: NONE Renal: NONE Musculoskeletal: NONE Psychiatric: anxiety Endocrine: NONE Blood Disorders: NONE Cancer(s): SKIN CANCER History of MRSA: No History of VRE: No History of CDIFF: No Isolation History: Standard Influenza Vaccine: 02/26/17 Tetanus Vaccine: 07/10/01 Surgical History Surgical History: ROTATOR CUFF Past Family/Social History Psychosocial History Where do you live? Home Services at Home: None ETOH Use: denies use Illicit Drug Use: denies illicit drug use Employment History Employment Retired Exam & Diagnostic Data Diagnostic Data ITS Data Unobtainable at this time Core Measures/Misc (02/13) Sepsis (View protocol) Sepsis Present: No
[2017-09-15 19:54] VITALS: BP 130/58
[2017-09-15] MEDS ORDERED: ZOCOR20 M1 PO (22:17)
== END 2017-09-15 20:10 | disposition short-term general hospital (02) | DRG 57 ==
LOC: ERH 12:41 → ERHI 09-09 14:23 → CP SOUTH 09-09 14:23 → ENTRNSPT 09-09 15:04 → EDTRNSPTSTS 09-09 15:09 → EDTRNSPT 09-09 15:09 → CMPTRNSPT 09-09 15:24 → CP SOUTH 09-09 15:25 → ENRESERV 09-09 15:26 → CP SOUTH 09-09 15:28
PROVIDERS: Physician Assistant Medical
DX: G31.84 Mild cognitive impairment of uncertain or unknown etiology (principal)
CPT/HCPCS: 70551; 80307; 81001; 87086; 97110-GO; 97116-GO; 97161-GP; G0463; G0480; J3490

== ENCOUNTER 2017-09-15 16:40 | Inpatient (IN) | payer OTHER ==
[~2017-09-15] VITALS: Ht 167.6 cm; Wt 69.9 kg
[~2017-09-15 16:40] MED LIST changes: +ALPRAZOLAM0.5 M4 PO; +ATORVASTATIN CA10 M1 PO; +DENAVIR5 GM TOP; +DOCUSATE SODIU100 M3 PO; +KLONOPIN1 M1 PO; +RISPERDAL1 M1 PO
[2017-09-15 20:15] VITALS: BP 126/80
--- NOTE | 2017-09-15 21:24 | History & Physical ---
See Addendum General Information and HPI MD Statement: I have seen and personally examined JAVIER CASTRO and documented this H&P. The patient is a 87 year old M who presented with a patient stated chief complaint of []. Source of Information: patient, family Exam Limitations: unable to give history, confusion, poor historian History of Present Illness: 87-year-old gentleman with past medical history of squamous cell carcinoma status post surgery,CKD hypertension, hyperlipidemia, glaucoma, osteoarthritis, Patricia's esophagitis, TIA came to the hospital from Inpatient Psychiatry's with chief complaint of altered mental status and confusion. Information was obtained from patient's family as he is not able to give a good history. Patient was recently admitted and discharged from [facility] with DDX of acute respiratory failure most likely to pneumonia versus ILD. According to the since discharge from the hospital about 2 weeks ago patient was fine for 1-2 days then he become delirious every day for example he was seen going to the neighbor's house knocking on the door when they were sleeping, sometimes agitated as well. However according to he did not have any fevers, chills, nausea, vomiting, chest pain and he was compliant with his medication. It should be noted that patient was put on the steroids taper upon discharge. He was admitted to Inpatient Psychiatry 1 week ago for treatment of agitation/confusion/delirium however despite the medical therapy he was still delirious and not back to his baseline which prompted more medical workup for him. 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 Dipyridamole W/ Aspirin (Aggrenox 25 MG-200 MG Capsule) 25 MG-200 MG CPMP.12HR 1 TAB PO BID THINNER (Reported) Docusate Sodium 100 MG CAPSULE 100 MG PO TID constipation Finasteride 5 MG TABLET 1 TAB PO DAILY UNK (Reported) Isosorbide Mononitrate (Isosorbide Mononitrate ER) 60 MG TAB.ER.24H 1 TAB PO DAILY BP (Reported) Risperidone (Risperdal) 1 MG TABLET 1 MG PO 1700 paranoia, thought disorganizat Tamsulosin HCl 0.4 MG CAP.ER.24H 1 CAP PO DAILY URINE (Reported) Travoprost (Travatan Z) 0.004 % DROPS 1 GTT OU QPM GLAUCOMA (Reported) Past History Medical History Neurological: NONE EENT: LENS INPLANT, GLAUCOMA Cardiovascular: HEART,HTN CHOL Respiratory: NONE Gastrointestinal: GERD Hepatic: NONE Renal: NONE Musculoskeletal: NONE Psychiatric: anxiety Endocrine: NONE Blood Disorders: NONE Cancer(s): SKIN CANCER History of MRSA: No History of VRE: No History of CDIFF: No Influenza Vaccine: 02/26/17 Tetanus Vaccine: 07/10/01 Surgical History Surgical History: ROTATOR CUFF Past Family/Social History Psychosocial History Services at Home: None Smoking Status: Unknown If Ever Smoked Review of Systems Review of Systems Constitutional: Reports: see HPI. Exam & Diagnostic Data Last 24 Hrs of Vital Signs/I&O Vital Signs Date Time Temp Pulse Resp B/P B/P Pulse O2 O2 Flow FiO2 Mean Ox Delivery Rate 09/16 2215 97.5 94 18 140/60 97 Room Air 09/15 2014 97.9 100 18 126/80 96 Room Air Physical Exam General Appearance Alert, Oriented X3, Cooperative HEENT PERRLA Cardiovascular Regular Rate, Normal S1, Normal S2 Lungs decreased sounds BL Abdomen Normal Bowel Sounds, Soft Neurological Normal Speech Extremities +1 BL edema Assessment/Plan Assessment: 87-year-old gentleman with past medical history of squamous cell carcinoma status post surgery,CKD hypertension, hyperlipidemia, glaucoma, osteoarthritis, Patricia's esophagitis, TIA came to the hospital from Inpatient Psychiatry's with chief complaint of altered mental status and confusion. 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 CXR unremarkable Assessment History of TIA History of CKD History of anemia History of recent prednisone therapy Acute mental status and delirium Osteoarthritis History of hypertension History of hyperlipidemia Plan Admit to general medicine floor Check UA and chest x-ray to rule out any infection Continue all home medication especially Klonopin and risperidone Continue Aggrenox Continue a statin Neurology consultation in the morning 1 of the ddx can be steroid-induced psychosis patient should be off the steroids for a long time for now CBC, BEP watch for bleeding safety net maker Full code for now, DVT prophylaxis mechanical and subcu heparin, Tylenol for pain, heart healthy diet As Ranked By This Provider Problem List: 1. Behavior concern in adult Core Measures/Misc (02/13) Acute Coronary Syndrome ACS Diagnosis: No Congestive Heart Failure Congestive Heart Failure Diagnosis No Cerebrovascular Accident CVA/TIA Diagnosis: No VTE (View Protocol) VTE Risk Factors Age>40 No Mechanical VTE Prophylaxis d/t N/A MechProphylax Ordered No VTE Pharm Prophylaxis d/t NA PharmProphylax ordered Sepsis (View protocol) Sepsis Present: No
[2017-09-15 21:52] LABS: ABSOLUTE BASOPHIL COUNT 0 /CUMM (0.0-0.2); ABSOLUTE EOSINOPHIL COUNT 0.3 /CUMM (0.0-0.7); ABSOLUTE GRANULOCYTE CT 9.5 /CUMM (1.4-6.5); ABSOLUTE LYMPH COUNT 1.1 /CUMM (1.2-3.4); ABSOLUTE MONOCYTE COUNT 0.8 /CUMM (0.10-0.60); BASOPHIL % 0.2 % (0.0-2.0); EOSINOPHIL % 2.3 % (0-5); GRANULOCYTE % 81.5 % (42.2-75.2); HEMATOCRIT 28.8 % (42-52); MEAN CORPUSCULAR HGB 31.7 PG (27.0-31.0); MEAN CORPUSCULAR HGB CONC 33.2 G/DL (33.0-37.0); MEAN CORPUSCULAR VOLUME 95.4 FL (80.0-94.0); MEAN PLATELET VOLUME 6.6 FL (7.4-10.4); PLATELET COUNT 339 /CUMM (130-400); RBC DISTRIBUTION WIDTH 12.8 % (11.5-14.5); RED BLOOD CELL CT 3.02 /CUMM (4.70-6.10); WHITE BLOOD CELL COUNT 11.7 /CUMM (4.8-10.8)
[2017-09-15 22:02] LABS: PT 10.6 SEC (9.4-12.5); PTT 24 SEC (25-37)
[2017-09-15 22:16] VITALS: BP 140/60
[2017-09-15] MEDS ORDERED: ZOCOR20 M1 PO (22:17)
--- NOTE | 2017-09-15 22:46 | RADIOLOGY REPORT ---
EXAMINATION: XR PORTABLE CHEST CLINICAL INFORMATION: Altered mental status. History of pneumonia. COMPARISON: 09/05/2017 TECHNIQUE: Portable frontal view of the chest was obtained. FINDINGS: The lungs are well expanded. There is no focal consolidation, edema, or effusion. No pneumothorax. The cardiomediastinal silhouette is within normal limits. No acute osseous abnormality. Radiopaque anchors in the left humeral head. IMPRESSION: No acute pulmonary findings.
[2017-09-16 06:23] VITALS: BP 132/56
--- NOTE | 2017-09-16 07:21 | PN-Observation ---
See Addendum Observation Note Observation Note _ I have personally examined JAVIER CASTRO. him disposition is uncertain at this time. Before a determination can be made, he requires continued observation for the following reasons [AMS]. Assessment/Plan Medical Assessment: 87-year-old gentleman with past medical history of squamous cell carcinoma status post surgery,CKD hypertension, hyperlipidemia, glaucoma, osteoarthritis, Patricia's esophagitis, TIA came to the hospital from Inpatient Psychiatry's with chief complaint of altered mental status and confusion. 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 Age-related macular degeneration Subjective Follow-up For: AMS Subjective: Seen and examined. Patient is sitting comfortably in chair and having breakfast. Does not offer any complaints. He is alert but not oriented Review of Systems Constitutional: Reports: see HPI. Objective Last 24 Hrs of Vital Signs/I&O Vital Signs Date Time Temp Pulse Resp B/P B/P Pulse O2 O2 Flow FiO2 Mean Ox Delivery Rate 09/16 1503 97.8 72 18 100/60 98 Room Air 09/16 1429 Room Air Room Air 09/16 0900 97.4 97 18 132/56 09/16 0900 97.4 97 18 132/56 09/16 0623 97.4 97 18 132/56 97 Room Air 09/15 2216 97.5 94 18 140/60 97 Room Air 09/15 2014 97.9 100 18 126/80 96 Room Air Intake & Output 09/16 1600 09/16 0800 09/16 0000 Intake Total 200 Output Total 600 Balance -400 Intake, Oral 200 Output, Urine 600 Patient 154 lb Weight Physical Exam General Appearance: Alert Cardiovascular: Normal S1, Normal S2 Lungs: Clear to Auscultation Abdomen: Normal Bowel Sounds, Soft Current Medications: Current Medications Sig/Mary Carmen Start time Last Medication Dose Route Stop Time Status Admin Acetaminophen 650 MG Q6P PRN 09/15 2129 AC PO Alprazolam 0.5 MG AT BEDTIME NEED.. 09/15 2229 DC PO 09/22 2228 Atorvastatin Calcium 10 MG 09/16 AC PO Clonazepam 1 MG 09/16 AC PO 09/23 1958 Diltiazem HCl 180 MG DAILY 09/16 09 AC 09/16 PO 0900 Dipyridamole/Aspirin 1 CAP BID 09/16 09 AC 09/16 PO 0900 Docusate Sodium 100 MG TID 09/16 09 AC 09/16 PO 0900 Finasteride 5 MG DAILY 09/16 09 AC 09/16 PO 0901 Heparin Sodium 5,000 UNIT Q8 09/15 2199 AC 09/16 (Porcine) SC 1424 Isosorbide 60 MG DAILY 09/16 09 AC 09/16 Mononitrate PO 09 Latanoprost 1 GTT AT BEDTIME 09/16 2100 AC OPH Risperidone 1 MG 09/16 AC PO Tamsulosin HCl 0.4 MG DAILY 09/16 09 AC 09/16 PO 0900 Last 24 Hrs of Labs/Mics: Laboratory Tests 09/16/17 0701: Anion Gap 10, Estimated GFR 41 L, BUN/Creatinine Ratio 20.6, CBC w Diff NO MAN DIFF REQ, RBC 3.01 L, MCV 94.6 H, MCH 31.9 H, MCHC 33.7, RDW 12.7, MPV 7.2 L , Gran % 78.1 H, Lymphocytes % 12.8 L, Monocytes % 6.0, Eosinophils % 2.9, Basophils % 0.2, Absolute Granulocytes 6.9 H, Absolute Lymphocytes 1.1 L, Absolute Monocytes 0.5, Absolute Eosinophils 0.3, Absolute Basophils 0 09/16/17 0200: Urine Opiates Screen < 100, Methadone Screen 62, Barbiturate Screen < 60, Ur Phencyclidine Scrn < 6.00, Amphetamines Screen < 100, U Benzodiazepines Scrn < 85, Urine Cocaine Screen < 50, Urine Cannabis Screen < 5.00, Urine Color YEL, Urine Clarity CLEAR, Urine pH 6.0, Ur Specific [place] 1.020, Urine Protein NEG, Urine Ketones NEG, Urine Nitrite NEG, Urine Bilirubin NEG, Urine Urobilinogen 0.2, Ur Leukocyte Esterase NEG, Ur Microscopic EXAM NOT REQUIRED, Urine Hemoglobin NEG, Urine Glucose NEG 09/15/173: Anion Gap 9, Estimated GFR 36 L, BUN/Creatinine Ratio 21.7, Magnesium 2.1, Ammonia < 9 L, Prealbumin 28.5, Folate > 20.0 H, TSH &T3 &Free T4 Intrp 0.970, PT 10.6, INR 0.97, APTT 24 L, CBC w Diff NO MAN DIFF REQ, RBC 3.02 L, MCV 95.4 H, MCH 31.7 H, MCHC 33.2, RDW 12.8, MPV 6.6 L, Gran % 81.5 H, Lymphocytes % 9.5 L, Monocytes % 6.5, Eosinophils % 2.3, Basophils % 0.2, Absolute Granulocytes 9.5 H, Absolute Lymphocytes 1.1 L, Absolute Monocytes 0.8 H, Absolute Eosinophils 0.3, Absolute Basophils 0
[2017-09-16 08:25] LABS: ABSOLUTE BASOPHIL COUNT 0 /CUMM (0.0-0.2); ABSOLUTE EOSINOPHIL COUNT 0.3 /CUMM (0.0-0.7); ABSOLUTE GRANULOCYTE CT 6.9 /CUMM (1.4-6.5); ABSOLUTE LYMPH COUNT 1.1 /CUMM (1.2-3.4); ABSOLUTE MONOCYTE COUNT 0.5 /CUMM (0.10-0.60); BASOPHIL % 0.2 % (0.0-2.0); EOSINOPHIL % 2.9 % (0-5); GRANULOCYTE % 78.1 % (42.2-75.2); HEMATOCRIT 28.5 % (42-52); MEAN CORPUSCULAR HGB 31.9 PG (27.0-31.0); MEAN CORPUSCULAR HGB CONC 33.7 G/DL (33.0-37.0); MEAN CORPUSCULAR VOLUME 94.6 FL (80.0-94.0); MEAN PLATELET VOLUME 7.2 FL (7.4-10.4); PLATELET COUNT 300 /CUMM (130-400); RBC DISTRIBUTION WIDTH 12.7 % (11.5-14.5); RED BLOOD CELL CT 3.01 /CUMM (4.70-6.10); WHITE BLOOD CELL COUNT 8.8 /CUMM (4.8-10.8)
--- NOTE | 2017-09-16 11:13 | PN- Att Addend ---
Attending Addendum Attending Brief Note Patient was transferred from Inpatient Psychiatry to the medical floor for continued observation and disposition plans. And seems restless little confused , his very hard of hearing. His vital signs are stable, no fever decreased breath sounds no other new changes. Appreciate Dr. Escobedo's input and recommendations, several tests were ordered and. Will get a neurology evaluation and have him follow with ENT. Current Medications Sig/Mary Carmen Start time Last Medication Dose Route Stop Time Status Admin Acetaminophen 650 MG Q6P PRN 09/15 2130 AC PO Alprazolam 0.5 MG AT BEDTIME NEED.. 09/15 2230 AC PO 09/22 2228 Atorvastatin Calcium 10 MG 17009/16 170 AC PO Clonazepam 1 MG 09/16 AC PO 09/23 1958 Diltiazem HCl 180 MG DAILY 09/16 0900 AC 09/16 PO 0900 Dipyridamole/Aspirin 1 CAP BID 09/16 0900 AC 09/16 PO 0900 Docusate Sodium 100 MG TID 09/16 0900 AC 09/16 PO 0900 Finasteride 5 MG DAILY 09/16 0900 AC 09/16 PO 0901 Heparin Sodium 5,000 UNIT Q8 09/15 2200 AC 09/16 (Porcine) SC 0617 Isosorbide 60 MG DAILY 09/16 0900 AC 09/16 Mononitrate PO 0900 Latanoprost 1 GTT AT BEDTIME 09/16 2100 AC OPH Risperidone 1 MG 17009/16 1700 AC PO Tamsulosin HCl 0.4 MG DAILY 09/16 0900 AC 09/16 PO 0900 Laboratory Tests 09/16/17 0701: Anion Gap 10, Estimated GFR 41 L, BUN/Creatinine Ratio 20.6, CBC w Diff NO MAN DIFF REQ, RBC 3.01 L, MCV 94.6 H, MCH 31.9 H, MCHC 33.7, RDW 12.7, MPV 7.2 L , Gran % 78.1 H, Lymphocytes % 12.8 L, Monocytes % 6.0, Eosinophils % 2.9, Basophils % 0.2, Absolute Granulocytes 6.9 H, Absolute Lymphocytes 1.1 L, Absolute Monocytes 0.5, Absolute Eosinophils 0.3, Absolute Basophils 0 09/16/17 0200: Urine Opiates Screen < 100, Methadone Screen 62, Barbiturate Screen < 60, Ur Phencyclidine Scrn < 6.00, Amphetamines Screen < 100, U Benzodiazepines Scrn < 85, Urine Cocaine Screen < 50, Urine Cannabis Screen < 5.00, Urine Color YEL, Urine Clarity CLEAR, Urine pH 6.0, Ur Specific [place] 1.020, Urine Protein NEG, Urine Ketones NEG, Urine Nitrite NEG, Urine Bilirubin NEG, Urine Urobilinogen 0.2, Ur Leukocyte Esterase NEG, Ur Microscopic EXAM NOT REQUIRED, Urine Hemoglobin NEG, Urine Glucose NEG 09/15/173: Anion Gap 9, Estimated GFR 36 L, BUN/Creatinine Ratio 21.7, Magnesium 2.1, Ammonia < 9 L, Prealbumin 28.5, Folate > 20.0 H, TSH &T3 &Free T4 Intrp 0.970, PT 10.6, INR 0.97, APTT 24 L, CBC w Diff NO MAN DIFF REQ, RBC 3.02 L, MCV 95.4 H, MCH 31.7 H, MCHC 33.2, RDW 12.8, MPV 6.6 L, Gran % 81.5 H, Lymphocytes % 9.5 L, Monocytes % 6.5, Eosinophils % 2.3, Basophils % 0.2, Absolute Granulocytes 9.5 H, Absolute Lymphocytes 1.1 L, Absolute Monocytes 0.8 H, Absolute Eosinophils 0.3, Absolute Basophils 0 Vital Signs Date Time Temp Pulse Resp B/P B/P Pulse O2 O2 Flow FiO2 Mean Ox Delivery Rate 09/16 0900 97.4 97 18 132/56 09/16 09 97.4 97 18 132/56 09/16 622 97.4 97 18 132/56 97 Room Air 09/16 2215 97.5 94 18 140/60 97 Room Air 09/15 2014 97.9 100 18 126/80 96 Room Air
[2017-09-16 15:03] VITALS: BP 100/60
--- NOTE | 2017-09-16 17:02 | Patient Discharge Instructions ---
Discharge Instructions General Discharge Information You were seen/treated for: AMS Special Instructions: please follow up with your primary doctor after dc please follow up with Adrián CASTILLO call to make an appointment please follow up with neurologist after discharge Diet Continue normal diet: Yes Activity Activity Self Limited: Yes Acute Coronary Syndrome Inclusion Criteria At DC or during hospital stay patient has or had the following: ACS DIAGNOSIS No Discharge Core Measures Meds if any: Prescribed or Continued at Discharge Meds if any: NOT Prescribed or Continued at Discharge Congestive Heart Failure Inclusion Criteria At DC or during hospital stay patient has or had the following: CHF DIAGNOSIS No Discharge Core Measures Meds if any: Prescribed or Continued at Discharge Meds if any: NOT Prescribed or Continued at Discharge Cerebrovascular accident Inclusion Criteria At DC or during hospital stay patient has or had the following: CVA/TIA Diagnosis No Discharge Core Measures Meds if any: Prescribed or Continued at Discharge Meds if any: NOT Prescribed or Continued at Discharge Venous thromboembolism Inclusion Criteria VTE Diagnosis No VTE Type NONE VTE Confirmed by (Test) NONE Discharge Core Measures - Per Current guidelines, there needs to be overlap - treatment for the first 5 days of Warfarin therapy. - If discharged on Warfarin prior to 5 days of - overlap therapy, the patient will need to be - assessed for post discharge needs including - *Post discharge parental anticoagulation - *Warfarin and/or parental anticoagulation education - *Follow up date to check INR post discharge At least 5 days overlap therapy as Inpatient No Meds if any: Prescribed or Continued at Discharge Note: Overlap Therapy is Warfarin and Anticoagulant Meds if any: NOT Prescribed or Continued at Discharge
[2017-09-16 22:25] VITALS: BP 134/60
[2017-09-17 06:22] VITALS: BP 126/60
--- NOTE | 2017-09-17 13:44 | PN-Observation ---
Observation Note Observation Note _ I have personally examined JAVIER CASTRO. him disposition is uncertain at this time. Before a determination can be made, he requires continued observation for the following reasons [altered mental status]. Assessment/Plan Medical Assessment: 87-year-old gentleman with past medical history of squamous cell carcinoma status post surgery,CKD hypertension, hyperlipidemia, glaucoma, osteoarthritis, Patricia's esophagitis, TIA came to the hospital from Inpatient Psychiatry's with chief complaint of altered mental status and confusion. 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 Cognitive disorder Plan: as noted above Subjective Follow-up For: Altered mental staus Subjective: Communicated with attending, patient is still not stable to be discharge considering altered mental status and observation was planned to be extended for 24 h. Patient visited today, was sitting at the bedside in no acute distress, was alert and partially oriented. Son at the bedside and noted patient is still not at the baseline. No fever or chills, no shortness of breathing, no chest pain, no other events. Patient was incoherent in answering to questions at times. Review of Systems Constitutional: Reports: see HPI. Objective Last 24 Hrs of Vital Signs/I&O Vital Signs Date Time Temp Pulse Resp B/P B/P Pulse O2 O2 Flow FiO2 Mean Ox Delivery Rate 09/17 1359 97.6 86 20 110/58 97 09/17 1027 92 124/56 09/17 1010 92 124/56 09/17 0622 98.9 89 20 126/60 98 Room Air 09/16 2225 99.4 85 20 134/60 97 Room Air Intake & Output 09/17 1600 09/17 0800 09/17 0000 Intake Total 1100 300 200 Output Total Balance 1100 300 200 Intake, Oral 1100 300 200 Physical Exam General Appearance: Alert, No Acute Distress, partial oriented, does not follow orders Skin Temp/Moisture Exam: Warm/Dry Sepsis Skin Exam (color): Normal for Ethnicity HEENT: Atraumatic Cardiovascular: Normal S1, Normal S2 Lungs: Normal Air Movement Abdomen: Soft, No Tenderness Neurological: grossly no change compared to yesterday Extremities: No Edema Current Medications: Current Medications Sig/Mary Carmen Start time Last Medication Dose Route Stop Time Status Admin Acetaminophen 650 MG Q6P PRN 09/15 2130 AC PO Atorvastatin Calcium 10 MG 1700 09/16 1700 AC 09/16 PO 1705 Clonazepam 1 MG 09/16 AC 09/16 PO 09/23 1958 195 Diltiazem HCl 180 MG DAILY 09/16 0900 AC 09/17 PO 1005 Dipyridamole/Aspirin 1 CAP BID 09/16 0900 AC 09/17 PO 1026 Docusate Sodium 100 MG TID 09/16 0900 AC 09/16 PO 202 Finasteride 5 MG DAILY 09/16 0900 AC 09/17 PO 1026 Heparin Sodium 5,000 UNIT Q8 09/15 2200 AC 09/17 (Porcine) SC 1403 Isosorbide 60 MG DAILY 09/16 0900 AC 09/17 Mononitrate PO 1010 Latanoprost 1 GTT AT BEDTIME 09/16 2100 AC 09/16 OPH 2028 Patient Medication 1 ED ONE ONE 09/16 1715 DC Teaching ED 09/16 1716 Risperidone 1 MG 1700 09/16 1700 AC 09/16 PO 1705 Tamsulosin HCl 0.4 MG DAILY 09/16 0900 AC 09/17 PO 1027
[2017-09-17 13:59] VITALS: BP 110/58
--- NOTE | 2017-09-17 15:26 | PN- Att Addend ---
Attending Addendum Attending Brief Note Patient ambulating with a walker and aid at the site also relatives present patient is anxious but seems alert Signs are stable no fever, no new changes on physical neurology consult pending and also will follow Dr. Escobedo's recommendations Intake & Output 09/17 1600 09/17 0400 09/16 1600 09/16 0400 09/15 1600 09/15 0400 Intake Total 700 200 440 Output Total 600 Balance 700 200 440 -600 Intake, Oral 700 200 440 Output, Urine 600 Patient 154 lb Weight Current Medications Sig/Mary Carmen Start time Last Medication Dose Route Stop Time Status Admin Acetaminophen 650 MG Q6P PRN 09/15 2129 AC PO Atorvastatin Calcium 10 MG 09/16 AC 09/16 PO 170 Clonazepam 1 MG 09/16 AC 09/16 PO 09/23 Diltiazem HCl 180 MG DAILY 09/16 09 AC 09/17 PO 1005 Dipyridamole/Aspirin 1 CAP BID 09/16 09 AC 09/17 PO 1026 Docusate Sodium 100 MG TID 09/16 09 AC 09/16 PO 2027 Finasteride 5 MG DAILY 09/16 09 AC 09/17 PO 1026 Heparin Sodium 5,000 UNIT Q8 09/15 2199 AC 09/17 (Porcine) SC 1403 Isosorbide 60 MG DAILY 09/16 09 AC 09/17 Mononitrate PO 1010 Latanoprost 1 GTT AT BEDTIME 09/16 2100 AC 09/16 OPH 2027 Patient Medication 1 ED ONE ONE 09/16 1715 MO Teaching ED 09/16 171 Risperidone 1 MG 09/16 170 AC 09/16 PO 1705 Tamsulosin HCl 0.4 MG DAILY 09/16 09 AC 09/17 PO 1027 Laboratory Tests 09/16/17 0701: Anion Gap 10, Estimated GFR 41 L, BUN/Creatinine Ratio 20.6, CBC w Diff NO MAN DIFF REQ, RBC 3.01 L, MCV 94.6 H, MCH 31.9 H, MCHC 33.7, RDW 12.7, MPV 7.2 L , Gran % 78.1 H, Lymphocytes % 12.8 L, Monocytes % 6.0, Eosinophils % 2.9, Basophils % 0.2, Absolute Granulocytes 6.9 H, Absolute Lymphocytes 1.1 L, Absolute Monocytes 0.5, Absolute Eosinophils 0.3, Absolute Basophils 0, Ref Lab Test Result Pending 09/16/17 0200: Urine Opiates Screen < 100, Methadone Screen 62, Barbiturate Screen < 60, Ur Phencyclidine Scrn < 6.00, Amphetamines Screen < 100, U Benzodiazepines Scrn < 85, Urine Cocaine Screen < 50, Urine Cannabis Screen < 5.00, Urine Color YEL, Urine Clarity CLEAR, Urine pH 6.0, Ur Specific [place] 1.020, Urine Protein NEG, Urine Ketones NEG, Urine Nitrite NEG, Urine Bilirubin NEG, Urine Urobilinogen 0.2, Ur Leukocyte Esterase NEG, Ur Microscopic EXAM NOT REQUIRED, Urine Hemoglobin NEG, Urine Glucose NEG 09/15/17 2133: Anion Gap 9, Estimated GFR 36 L, BUN/Creatinine Ratio 21.7, Magnesium 2.1, Ammonia < 9 L, Prealbumin 28.5, Folate > 20.0 H, TSH &T3 &Free T4 Intrp 0.970, PT 10.6, INR 0.97, APTT 24 L, CBC w Diff NO MAN DIFF REQ, RBC 3.02 L, MCV 95.4 H, MCH 31.7 H, MCHC 33.2, RDW 12.8, MPV 6.6 L, Gran % 81.5 H, Lymphocytes % 9.5 L, Monocytes % 6.5, Eosinophils % 2.3, Basophils % 0.2, Absolute Granulocytes 9.5 H, Absolute Lymphocytes 1.1 L, Absolute Monocytes 0.8 H, Absolute Eosinophils 0.3, Absolute Basophils 0 Vital Signs Date Time Temp Pulse Resp B/P B/P Pulse O2 O2 Flow FiO2 Mean Ox Delivery Rate 09/17 1359 97.6 86 20 110/58 97 09/17 1027 92 124/56 09/17 1010 92 124/56 09/17 0622 98.9 89 20 126/60 98 Room Air 09/16 2225 99.4 85 20 134/60 97 Room Air
--- NOTE | 2017-09-17 16:01 | Cons- Neurology ---
General Information and HPI Consulting Request Date of Consult: 09/17/17 Requested By: Heladio Velasco MD History of Present Illness: 87 year old male seen for behavior change He was in hospital few weeks ago for acute shortness of breath, possibly pneumonia, and discharged on antibiotics. 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 At home he began acting erratically, knocking on neighbors home doors, acting confused and became very tangential. He was admitted to psych unit, transferred to medicine for further evaluation. No complaint of headache or history of head traum. Allergies/Medications Allergies: Coded Allergies: NO KNOWN ALLERGIES (05/22/12) Home Med List: Alprazolam 0.5 MG TABLET 0.5 MG PO AT BEDTIME NEEDED PRN INSOMNIA Atorvastatin Calcium 10 MG TABLET 10 MG PO 1700 cholesterol Clonazepam (Klonopin) 1 MG TABLET 1 MG PO 1999 anxiety Diltiazem HCl (Diltiazem 24HR ER) 180 MG CAP.ER.24H 1 CAP PO DAILY heart . Dipyridamole W/ Aspirin (Aggrenox 25 MG-200 MG Capsule) 25 MG-200 MG CPMP.12HR 1 TAB PO BID THINNER (Reported) Docusate Sodium 100 MG CAPSULE 100 MG PO TID constipation Finasteride 5 MG TABLET 1 TAB PO DAILY UNK (Reported) Isosorbide Mononitrate (Isosorbide Mononitrate ER) 60 MG TAB.ER.24H 1 TAB PO DAILY BP (Reported) Risperidone (Risperdal) 1 MG TABLET 1 MG PO 1700 paranoia, thought disorganizat Tamsulosin HCl 0.4 MG CAP.ER.24H 1 CAP PO DAILY URINE (Reported) Travoprost (Travatan Z) 0.004 % DROPS 1 GTT OU QPM GLAUCOMA (Reported) Current Medications: Current Medications Sig/Mary Carmen Start time Last Medication Dose Route Stop Time Status Admin Acetaminophen 650 MG Q6P PRN 09/150 AC PO Atorvastatin Calcium 10 MG 1700 09/16 170 AC 09/16 PO 170 Clonazepam 1 MG 09/16 AC 09/16 PO 09/23 Diltiazem HCl 180 MG DAILY 09/16 09 AC 09/17 PO 1005 Dipyridamole/Aspirin 1 CAP BID 09/16 09 AC 09/17 PO 1026 Docusate Sodium 100 MG TID 09/16 09 AC 09/16 PO 2027 Finasteride 5 MG DAILY 09/16 09 AC 09/17 PO 1026 Heparin Sodium 5,000 UNIT Q8 09/15 2200 AC 09/17 (Porcine) SC 1403 Isosorbide 60 MG DAILY 09/16 09 AC 09/17 Mononitrate PO 1010 Latanoprost 1 GTT AT BEDTIME 09/16 2100 AC 09/16 OPH 2027 Patient Medication 1 ED ONE ONE 09/16 1715 DC Teaching ED 09/16 1716 Risperidone 1 MG 1700 09/16 1700 AC 09/16 PO 170 Tamsulosin HCl 0.4 MG DAILY 09/16 09 AC 09/17 PO 1027 Review of Systems Review of Systems: denies headache, vertigo, chest pain, shortness of breath, abdominal pain, incontinence, fever, significant swelling. Has poor vision other systems reviewed are negative. Past History Medical History Neurological: NONE EENT: blindness, LENS INPLANT, GLAUCOMA Cardiovascular: HEART,HTN CHOL Respiratory: NONE Gastrointestinal: GERD Hepatic: NONE Renal: NONE Musculoskeletal: NONE Psychiatric: anxiety Endocrine: NONE Blood Disorders: NONE Cancer(s): SKIN CANCER Surgical History Surgical History: ROTATOR CUFF Psychosocial History Services at Home: None Smoking Status: Former Smoker Exam & Diagnostic Data Vital Signs and I&O Vital Signs Date Time Temp Pulse Resp B/P B/P Pulse O2 O2 Flow FiO2 Mean Ox Delivery Rate 09/17 1359 97.6 86 20 110/58 97 09/17 1027 92 124/56 09/17 1010 92 124/56 09/17 0622 98.9 89 20 126/60 98 Room Air 09/16 2225 99.4 85 20 134/60 97 Room Air Intake & Output 09/17 1600 09/17 0800 09/17 0000 Intake Total 1100 300 200 Output Total Balance 1100 300 200 Intake, Oral 1100 300 200 alert pressure of speech, tangential heart sounds normal. No carotid bruit, distal pulses intact Oriented to month and place Knows his address and age correctly Follows all commands Pupil small and reactive, fundi cannot be evaluated, vision poor, hicks not able to evaluate no facial weakness, no facial sensory loss, tongue,palate shoulder movement normal tone/strenghgt upper/lower extremities intact no sensory loss light touch coord intact DTR hypoactive walks with rollowing walker; no ataxia Last 48 Hours of Lab Results: Laboratory Tests 09/16 09/16 0701 0200 Chemistry Sodium (137 - 145 mmol/L) 140 Potassium (3.5 - 5.1 mmol/L) 4.0 Chloride (98 - 107 mmol/L) 102 Carbon Dioxide (22 - 30 mmol/L) 28 Anion Gap (5 - 16) 10 BUN (9 - 20 mg/dL) 33 H Creatinine (0.7 - 1.2 mg/dL) 1.6 H Estimated GFR (>60 ml/min) 41 L BUN/Creatinine Ratio (7 - 25 %) 20.6 Hematology CBC w Diff NO MAN DIFF REQ WBC (4.8 - 10.8 /CUMM) 8.8 RBC (4.70 - 6.10 /CUMM) 3.01 L Hgb (14.0 - 18.0 G/DL) 9.6 L Hct (42 - 52 %) 28.5 L MCV (80.0 - 94.0 FL) 94.6 H MCH (27.0 - 31.0 PG) 31.9 H MCHC (33.0 - 37.0 G/DL) 33.7 RDW (11.5 - 14.5 %) 12.7 Plt Count (130 - 400 /CUMM) 300 MPV (7.4 - 10.4 FL) 7.2 L Gran % (42.2 - 75.2 %) 78.1 H Lymphocytes % (20.5 - 51.1 %) 12.8 L Monocytes % (1.7 - 9.3 %) 6.0 Eosinophils % (0 - 5 %) 2.9 Basophils % (0.0 - 2.0 %) 0.2 Absolute Granulocytes (1.4 - 6.5 /CUMM) 6.9 H Absolute Lymphocytes (1.2 - 3.4 /CUMM) 1.1 L Absolute Monocytes (0.10 - 0.60 /CUMM) 0.5 Absolute Eosinophils (0.0 - 0.7 /CUMM) 0.3 Absolute Basophils (0.0 - 0.2 /CUMM) 0 Miscellaneous Ref Lab Test Result Pending Toxicology Urine Opiates Screen (>2000 NG/ML) < 100 Methadone Screen (>300 NG/ML) 62 Barbiturate Screen (>200 NG/ML) < 60 Ur Phencyclidine Scrn (>25 NG/ML) < 6.00 Amphetamines Screen (>1000 NG/ML) < 100 U Benzodiazepines Scrn (>200 NG/ML) < 85 Urine Cocaine Screen (>300 NG/ML) < 50 Urine Cannabis Screen (>50 NG/ML) < 5.00 Urines Urine Color (YEL,AMB,STR) YEL Urine Clarity (CLEAR) CLEAR Urine pH (5.0 - 8.0) 6.0 Ur Specific [place] (1.001 - 1.035) 1.020 Urine Protein (NEG,<30 MG/DL) NEG Urine Ketones (NEG) NEG Urine Nitrite (NEG) NEG Urine Bilirubin (NEG) NEG Urine Urobilinogen (0.1 - 1.0 EU/dl) 0.2 Ur Leukocyte Esterase (NEG) NEG Ur Microscopic EXAM NOT REQUIRED Urine Hemoglobin (NEG) NEG Urine Glucose (N MG/DL) NEG 09/15 2133 Chemistry Sodium (137 - 145 mmol/L) 135 L Potassium (3.5 - 5.1 mmol/L) 4.3 Chloride (98 - 107 mmol/L) 99 Carbon Dioxide (22 - 30 mmol/L) 27 Anion Gap (5 - 16) 9 BUN (9 - 20 mg/dL) 39 H Creatinine (0.7 - 1.2 mg/dL) 1.8 H Estimated GFR (>60 ml/min) 36 L BUN/Creatinine Ratio (7 - 25 %) 21.7 Magnesium (1.6 - 2.3 mg/dL) 2.1 Ammonia (9 - 30 umol/L) < 9 L Prealbumin (17.6 - 36.0 mg/dL) 28.5 Folate (2.76 - 20.0 ng/mL) > 20.0 H TSH &T3 &Free T4 Intrp (0.27 - 4.20 uIU/mL) 0.970 Coagulation PT (9.4 - 12.5 SEC) 10.6 INR (0.90 - 1.17) 0.97 APTT (25 - 37 SEC) 24 L Hematology CBC w Diff NO MAN DIFF REQ WBC (4.8 - 10.8 /CUMM) 11.7 H RBC (4.70 - 6.10 /CUMM) 3.02 L Hgb (14.0 - 18.0 G/DL) 9.6 L Hct (42 - 52 %) 28.8 L MCV (80.0 - 94.0 FL) 95.4 H MCH (27.0 - 31.0 PG) 31.7 H MCHC (33.0 - 37.0 G/DL) 33.2 RDW (11.5 - 14.5 %) 12.8 Plt Count (130 - 400 /CUMM) 339 MPV (7.4 - 10.4 FL) 6.6 L Gran % (42.2 - 75.2 %) 81.5 H Lymphocytes % (20.5 - 51.1 %) 9.5 L Monocytes % (1.7 - 9.3 %) 6.5 Eosinophils % (0 - 5 %) 2.3 Basophils % (0.0 - 2.0 %) 0.2 Absolute Granulocytes (1.4 - 6.5 /CUMM) 9.5 H Absolute Lymphocytes (1.2 - 3.4 /CUMM) 1.1 L Absolute Monocytes (0.10 - 0.60 /CUMM) 0.8 H Absolute Eosinophils (0.0 - 0.7 /CUMM) 0.3 Absolute Basophils (0.0 - 0.2 /CUMM) 0 Imaging/Other Studies: CXR: IMPRESSION: No acute pulmonary findings. Assessment/Plan Assessment: differential between acute gary vs delerium Exam and history suggests gary given recent use of steroids and sudden nature of event Recommendations: suggest adding a mood stabilizer, either valproate, lamictal, or lithium would discuss with psych which drug they prefer Consult Acknowledgment - Thank you for your consult request.
[2017-09-17 22:13] VITALS: BP 120/80
[2017-09-18 06:20] VITALS: BP 132/58
--- NOTE | 2017-09-18 07:35 | PN-Observation ---
Observation Note Observation Note _ I have personally examined JAVIER CASTRO. him disposition is uncertain at this time. Before a determination can be made, he requires continued observation for the following reasons [AMS]. Assessment/Plan Medical Assessment: 87-year-old gentleman with past medical history of squamous cell carcinoma status post surgery,CKD hypertension, hyperlipidemia, glaucoma, osteoarthritis, Patricia's esophagitis, TIA came to the hospital from Inpatient Psychiatry's with chief complaint of altered mental status and confusion. 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 CXR unremarkable Assessment History of TIA History of CKD History of anemia History of recent prednisone therapy Acute mental status and delirium Osteoarthritis History of hypertension History of hyperlipidemia Plan -UA and chest x-ray clear -Continue all home medication especially Klonopin and risperidone -Continue Aggrenox -Continue a statin -Neurology consultation- we will follow - pysch consult was placed as neuro suspecting manic episode -injury/safety hazard assessment - could 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 Altered mental status Plan: as noted above Subjective Follow-up For: AMS Subjective: Patient is medically not stable to be discharge and will be changed to admit in considering risks related to altered mental status and need to start psychiatric medications. Patient visited today, was sitting at the bedside in no acute distress, sitter at the bedside. was alert, did not respond to questions, could not evaluate for orientation. No fever or chills, no shortness of breathing, no chest pain, no other events. Pych consult was placed for treatment of Manic episode per neuro Review of Systems Constitutional: Reports: see HPI. Objective Last 24 Hrs of Vital Signs/I&O Vital Signs Date Time Temp Pulse Resp B/P B/P Pulse O2 O2 Flow FiO2 Mean Ox Delivery Rate 09/18 0620 98.1 94 20 132/58 95 Room Air 09/17 2213 97.5 84 20 120/80 96 Room Air 09/17 1359 97.6 86 20 110/58 97 09/17 1027 92 124/56 Intake & Output 09/18 1600 09/18 0800 09/18 0000 Intake Total 360 400 Output Total Balance 360 400 Intake, Oral 360 400 Physical Exam General Appearance: Alert, No Acute Distress Skin Temp/Moisture Exam: Warm/Dry Sepsis Skin Exam (color): Normal for Ethnicity HEENT: Atraumatic Cardiovascular: Normal S1, Normal S2 Lungs: Normal Air Movement Current Medications: Current Medications Sig/Mary Carmen Start time Last Medication Dose Route Stop Time Status Admin Acetaminophen 650 MG Q6P PRN 09/15 2129 AC PO Atorvastatin Calcium 10 MG 17009/16 170 AC 09/17 PO 1648 Clonazepam 1 MG 09/16 AC 09/17 PO 09/23 Diltiazem HCl 180 MG DAILY 09/16 09 AC 09/17 PO 1005 Dipyridamole/Aspirin 1 CAP BID 09/16 09 AC 09/17 PO 2048 Docusate Sodium 100 MG TID 09/16 09 AC 09/17 PO 2048 Finasteride 5 MG DAILY 09/16 09 AC 09/17 PO 1026 Heparin Sodium 5,000 UNIT Q8 09/15 2199 AC 09/18 (Porcine) SC 0548 Isosorbide 60 MG DAILY 09/16 09 AC 09/17 Mononitrate PO 1010 Latanoprost 1 GTT AT BEDTIME 09/16 2100 AC 09/17 OPH 2048 Risperidone 1 MG 1700 09/16 1700 AC 09/17 PO 1648 Tamsulosin HCl 0.4 MG DAILY 09/16 09 AC 09/17 PO 1027 Last 24 Hrs of Labs/Mics: Laboratory Tests 09/18/17 0720: Anion Gap 12, Estimated GFR 38 L, BUN/Creatinine Ratio 16.5, CBC w Diff NO MAN DIFF REQ, RBC 3.03 L, MCV 93.9, MCH 31.5 H, MCHC 33.5, RDW 12.7, MPV 7.7, Gran % 69.3, Lymphocytes % 17.8 L, Monocytes % 8.8, Eosinophils % 3.6, Basophils % 0.5, Absolute Granulocytes 4.9, Absolute Lymphocytes 1.3, Absolute Monocytes 0.6 , Absolute Eosinophils 0.3, Absolute Basophils 0
[2017-09-18 09:19] LABS: ABSOLUTE BASOPHIL COUNT 0 /CUMM (0.0-0.2); ABSOLUTE EOSINOPHIL COUNT 0.3 /CUMM (0.0-0.7); ABSOLUTE GRANULOCYTE CT 4.9 /CUMM (1.4-6.5); ABSOLUTE LYMPH COUNT 1.3 /CUMM (1.2-3.4); ABSOLUTE MONOCYTE COUNT 0.6 /CUMM (0.10-0.60); BASOPHIL % 0.5 % (0.0-2.0); EOSINOPHIL % 3.6 % (0-5); GRANULOCYTE % 69.3 % (42.2-75.2); HEMATOCRIT 28.5 % (42-52); MEAN CORPUSCULAR HGB 31.5 PG (27.0-31.0); MEAN CORPUSCULAR HGB CONC 33.5 G/DL (33.0-37.0); MEAN CORPUSCULAR VOLUME 93.9 FL (80.0-94.0); MEAN PLATELET VOLUME 7.7 FL (7.4-10.4); PLATELET COUNT 313 /CUMM (130-400); RBC DISTRIBUTION WIDTH 12.7 % (11.5-14.5); RED BLOOD CELL CT 3.03 /CUMM (4.70-6.10); WHITE BLOOD CELL COUNT 7.1 /CUMM (4.8-10.8)
--- NOTE | 2017-09-18 13:20 | PN- Att Addend ---
Attending Addendum Attending Brief Note Patient sitting in the chair cannot stay still. Has a sitter now. His speech is a little pressured, His vital signs are stable no fever with no changes on physical. To discuss consult and recommendations neurology thinks this is more of her manic episodes, one of the stressors could have been the use of steroids, psychiatry was called reassessed the patient and if they agree to start treatments for gary will need to keep in the hospital patient is not safe to leave at this point Intake & Output 09/18 04009/16 040 Intake Total 578 253 7742 200 440 Output Total 600 Balance 961 895 9121 200 440 -600 Intake, Oral 692 464 6178 200 440 Output, Urine 600 Patient 154 lb Weight Current Medications Sig/Mary Carmen Start time Last Medication Dose Route Stop Time Status Admin Acetaminophen 650 MG Q6P PRN 09/15 2129 AC PO Atorvastatin Calcium 10 MG 09/16 170 AC 09/17 PO 1648 Clonazepam 1 MG 09/16 PO 09/23 1958 2048 Diltiazem HCl 180 MG DAILY 09/16 09 AC 09/18 PO 1005 Dipyridamole/Aspirin 1 CAP BID 09/16 09 AC 09/18 PO 1007 Docusate Sodium 100 MG TID 09/16 09 AC 09/17 PO 2048 Finasteride 5 MG DAILY 09/16 09 AC 09/17 PO 1026 Heparin Sodium 5,000 UNIT Q8 09/15 (Porcine) SC 0548 Isosorbide 60 MG DAILY 09/16 0909/17 Mononitrate PO 1010 Latanoprost 1 GTT AT BEDTIME 09/16 2100 AC 09/17 OPH 2048 Risperidone 1 MG 09/16 170 AC 09/17 PO 1648 Tamsulosin HCl 0.4 MG DAILY 09/16 09 AC 09/18 PO 1025 Laboratory Tests 09/18 09/16 0720 0701 Chemistry Sodium (137 - 145 mmol/L) 143 140 Potassium (3.5 - 5.1 mmol/L) 4.5 4.0 Chloride (98 - 107 mmol/L) 105 102 Carbon Dioxide (22 - 30 mmol/L) 26 28 Anion Gap (5 - 16) 12 10 BUN (9 - 20 mg/dL) 28 H 33 H Creatinine (0.7 - 1.2 mg/dL) 1.7 H 1.6 H Estimated GFR (>60 ml/min) 38 L 41 L BUN/Creatinine Ratio (7 - 25 %) 16.5 20.6 Hematology CBC w Diff NO MAN DIFF REQ NO MAN DIFF REQ WBC (4.8 - 10.8 /CUMM) 7.1 8.8 RBC (4.70 - 6.10 /CUMM) 3.03 L 3.01 L Hgb (14.0 - 18.0 G/DL) 9.5 L 9.6 L Hct (42 - 52 %) 28.5 L 28.5 L MCV (80.0 - 94.0 FL) 93.9 94.6 H MCH (27.0 - 31.0 PG) 31.5 H 31.9 H MCHC (33.0 - 37.0 G/DL) 33.5 33.7 RDW (11.5 - 14.5 %) 12.7 12.7 Plt Count (130 - 400 /CUMM) 313 300 MPV (7.4 - 10.4 FL) 7.7 7.2 L Gran % (42.2 - 75.2 %) 69.3 78.1 H Lymphocytes % (20.5 - 51.1 %) 17.8 L 12.8 L Monocytes % (1.7 - 9.3 %) 8.8 6.0 Eosinophils % (0 - 5 %) 3.6 2.9 Basophils % (0.0 - 2.0 %) 0.5 0.2 Absolute Granulocytes (1.4 - 6.5 /CUMM) 4.9 6.9 H Absolute Lymphocytes (1.2 - 3.4 /CUMM) 1.3 1.1 L Absolute Monocytes (0.10 - 0.60 /CUMM) 0.6 0.5 Absolute Eosinophils (0.0 - 0.7 /CUMM) 0.3 0.3 Absolute Basophils (0.0 - 0.2 /CUMM) 0 0 Miscellaneous Ref Lab Test Result Pending 09/16 199 Toxicology Urine Opiates Screen (>2000 NG/ML) < 100 Methadone Screen (>300 NG/ML) 62 Barbiturate Screen (>200 NG/ML) < 60 Ur Phencyclidine Scrn (>25 NG/ML) < 6.00 Amphetamines Screen (>1000 NG/ML) < 100 U Benzodiazepines Scrn (>200 NG/ML) < 85 Urine Cocaine Screen (>300 NG/ML) < 50 Urine Cannabis Screen (>50 NG/ML) < 5.00 Urines Urine Color (YEL,AMB,STR) YEL Urine Clarity (CLEAR) CLEAR Urine pH (5.0 - 8.0) 6.0 Ur Specific Vega (1.001 - 1.035) 1.020 Urine Protein (NEG,<30 MG/DL) NEG Urine Ketones (NEG) NEG Urine Nitrite (NEG) NEG Urine Bilirubin (NEG) NEG Urine Urobilinogen (0.1 - 1.0 EU/dl) 0.2 Ur Leukocyte Esterase (NEG) NEG Ur Microscopic EXAM NOT REQUIRED Urine Hemoglobin (NEG) NEG Urine Glucose (N MG/DL) NEG 09/15 2132 Chemistry Sodium (137 - 145 mmol/L) 135 L Potassium (3.5 - 5.1 mmol/L) 4.3 Chloride (98 - 107 mmol/L) 99 Carbon Dioxide (22 - 30 mmol/L) 27 Anion Gap (5 - 16) 9 BUN (9 - 20 mg/dL) 39 H Creatinine (0.7 - 1.2 mg/dL) 1.8 H Estimated GFR (>60 ml/min) 36 L BUN/Creatinine Ratio (7 - 25 %) 21.7 Magnesium (1.6 - 2.3 mg/dL) 2.1 Ammonia (9 - 30 umol/L) < 9 L Prealbumin (17.6 - 36.0 mg/dL) 28.5 Folate (2.76 - 20.0 ng/mL) > 20.0 H TSH &T3 &Free T4 Intrp (0.27 - 4.20 uIU/mL) 0.970 Coagulation PT (9.4 - 12.5 SEC) 10.6 INR (0.90 - 1.17) 0.97 APTT (25 - 37 SEC) 24 L Hematology CBC w Diff NO MAN DIFF REQ WBC (4.8 - 10.8 /CUMM) 11.7 H RBC (4.70 - 6.10 /CUMM) 3.02 L Hgb (14.0 - 18.0 G/DL) 9.6 L Hct (42 - 52 %) 28.8 L MCV (80.0 - 94.0 FL) 95.4 H MCH (27.0 - 31.0 PG) 31.7 H MCHC (33.0 - 37.0 G/DL) 33.2 RDW (11.5 - 14.5 %) 12.8 Plt Count (130 - 400 /CUMM) 339 MPV (7.4 - 10.4 FL) 6.6 L Gran % (42.2 - 75.2 %) 81.5 H Lymphocytes % (20.5 - 51.1 %) 9.5 L Monocytes % (1.7 - 9.3 %) 6.5 Eosinophils % (0 - 5 %) 2.3 Basophils % (0.0 - 2.0 %) 0.2 Absolute Granulocytes (1.4 - 6.5 /CUMM) 9.5 H Absolute Lymphocytes (1.2 - 3.4 /CUMM) 1.1 L Absolute Monocytes (0.10 - 0.60 /CUMM) 0.8 H Absolute Eosinophils (0.0 - 0.7 /CUMM) 0.3 Absolute Basophils (0.0 - 0.2 /CUMM) 0 Vital Signs Date Time Temp Pulse Resp B/P B/P Pulse O2 O2 Flow FiO2 Mean Ox Delivery Rate 09/18 1026 Room Air Room Air 09/18 0620 98.1 94 20 132/58 95 Room Air 09/17 2213 97.5 84 20 120/80 96 Room Air 09/17 1359 97.6 86 20 110/58 97
[2017-09-18 13:59] VITALS: BP 110/60
--- NOTE | 2017-09-18 15:05 | Cons- Psychiatry ---
Psychiatric Consult Date of Consult: 09/18/17 Reason for Consult: Evaluation of altered mental status Allergies: Coded Allergies: NO KNOWN ALLERGIES (05/22/12) Past History Past Medical History Neurological: NONE EENT: blindness, LENS INPLANT, GLAUCOMA Cardiovascular: HEART,HTN CHOL Respiratory: NONE Gastrointestinal: GERD Hepatic: NONE Renal: NONE Musculoskeletal: NONE Psychiatric: anxiety Endocrine: NONE Blood Disorders: NONE Cancer(s): SKIN CANCER Past Surgical History Surgical History: ROTATOR CUFF Psychosocial History Strengths/Capabilities: seeking tx for help Physical Limitations (Interventions): walker Psychiatric Treatment History Diagnosis: none Risk Factors: age (under 24/over 65), chronic/serious med cond., high anxiety/ distress, isolate/no social support, male, limited support Assessment/Plan Impression: CC: AMS 87 y/o 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 He began acting erratically at home, thought disordered, paranoid, knocking on neighbors doors, was taken back to ED and psychiatrically hospitalized on [facility] on 09/09. There he was noted to be disorganized, labile, with some congitive deficits, treated with risperdal, and ultimately transferred to the medicine service for medical w/u of AMS on 09/15. This workup has not revealed an obvious cause of AMS. Neurology was consulted. They feel most c/w delirium versus gary. MR Brain on 09/14 with diffuse volume loss and scattered chronic microvascular ischemic changes and lacunar infarcts, right greater than left. On interview, Mr. Curran is adequately groomed, pleasant and cooperative with logorrhea, loose associations, and delusions. RE: delusions, these seem to be of paranoid nature, i.e. "well, I've already said to much. I need to get their permission to speak further." He is unable to participate in a sustained conversation, however is able to answer pointed questions. It is unclear as to whether he is responding to internal stimuli. Reports his mood is "fine", and his affect is blunted and non-congruent. He denies thoughts of suicide or harming others. Cognitively, he is alert, oriented to his name, place ("[place], [place]") and date (September 18, 2017). He did not know today was tuesday. Said "the president better be Tejinder Solis, he's my man!" Naming and repetition was intact. Had difficulty performing short term memory assessment. I spoke with his daughter who clarified that she had no concern for any dementing processes prior to this current episode and no major history of mental illness. She does feel as though he is slowly becoming increasingly more organized and improving somewhat. She feels as though abrupt discontinuation of his clonazepam played a major role in current presentation. Labs and studies were reviewed. Assessment: New onset disturbance in thought process accompanied by paranoid delusions in the context of medical illness, abrupt discontinuation of long- standing benzodiazepines, and steroid administration. Most likely this is secondary to multifactorial delirium presenting as gary. There is no collateral suggestion that this patient had a premorbid history of bipolar illness, and while post-stroke gary is certainly possible, especially with right-sided brain legions, the MR read does not suggest any recent lesions and this is a rare phenomena. Recs: -Given degree of thought disturbance, he will likely require inpatient psychiatric treatment upon conclusion of medical workup -Would increase risperdal to 1.5 mg at dinnertime and 0.5 mg in the morning. Discussed dose increase with patient's daughter who agrees. -At this point would suggest treatment of delirium with short term neuroleptic rather than addition of mood stabilizer. The patient's CKD is a relative contraindication of lithium initiation, and lamotrigine would not be effective in the short term. If as his daughter notes the patient is slowly improving, I would not be in favor of also adding depakote. -Suggest splitting clonazepam to 0.5 mg QAM + 0.5 mg QPM -Continue non-pharm treatment for delirium, including focusing on sleep/wake cycles, pain and constipation management, family involvement, use of glasses/ hearing aides as needed, limiting polypharmacy -Agree with continuing sitter for safety -Psychiatry consult will follow up with patient tomorrow -Thank you for this consult
[2017-09-18 22:10] VITALS: BP 124/56
[2017-09-19 06:32] VITALS: BP 108/50
--- NOTE | 2017-09-19 07:48 | PN- Housestaff ---
Subjective Follow-up For: Confusion Subjective: Seen and examined. Patient is currently in A. Overnight patient was delirious requiring soft restraints 4 and a [place]. Patient has been evaluated by neurology. We believe that patient is currently in a maniac episode. And would benefit from inpatient psychiatric admission. Review of Systems Constitutional: Reports: see HPI. Objective Last 24 Hrs of Vital Signs/I&O Vital Signs Date Time Temp Pulse Resp B/P B/P Pulse O2 O2 Flow FiO2 Mean Ox Delivery Rate 09/19 0815 110/60 09/19 0814 110/60 09/19 0632 97.8 70 20 108/50 94 Room Air 09/18 2210 98.1 74 20 124/56 97 Room Air 09/18 1359 97.6 88 20 110/60 97 09/18 1026 Room Air Room Air Intake & Output 09/19 1600 09/19 0800 09/19 0000 Intake Total 480 480 Output Total 200 Balance 480 280 Intake, Oral 480 480 Number 0 Bowel Movements Output, Urine 200 Patient 154 lb Weight Physical Exam General Appearance: No Acute Distress Cardiovascular: Normal S1, Normal S2 Lungs: Clear to Auscultation Abdomen: Soft Current Medications: Current Medications Sig/Mary Carmen Start time Last Medication Dose Route Stop Time Status Admin Acetaminophen 650 MG .STK-MED ONE 09/18 1555 DC PO 09/18 1556 Acetaminophen 650 MG Q6P PRN 09/15 2130 AC 09/19 PO 0531 Atorvastatin Calcium 10 MG 1700 09/16 1700 AC 09/18 PO 1553 Clonazepam 0.5 MG 09/19 08 AC 09/19 PO 09/26 0759 0814 Clonazepam 0.5 MG 09/18 AC 09/18 PO 09/25 1958 195 Clonazepam 1 MG 09/16 DC 09/17 PO 09/23 Diltiazem HCl 180 MG DAILY 09/16 09 AC 09/19 PO 0814 Dipyridamole/Aspirin 1 CAP BID 09/16 09 AC 09/19 PO 0815 Docusate Sodium 100 MG TID 09/16 09 AC 09/19 PO 0815 Finasteride 5 MG DAILY 09/16 09 AC 09/19 PO 0815 Heparin Sodium 5,000 UNIT Q8 09/15 2200 AC 09/19 (Porcine) SC 0530 Isosorbide 60 MG DAILY 09/16 0900 AC 09/19 Mononitrate PO 0815 Latanoprost 1 GTT AT BEDTIME 09/16 2100 AC 09/18 OPH 2054 Risperidone 1.5 MG 0 09/19 1700 AC PO Risperidone 0.5 MG 1000 09/19 1000 AC 09/19 PO 0815 Risperidone 1 MG 1700 09/16 1700 DC 09/18 PO 1553 Tamsulosin HCl 0.4 MG DAILY 09/16 0900 AC 09/19 PO 0814 Assessment/Plan Assessment: 87-year-old gentleman with past medical history of squamous cell carcinoma status post surgery,CKD hypertension, hyperlipidemia, glaucoma, osteoarthritis, Patricia's esophagitis, TIA came to the hospital from Inpatient Psychiatry's with chief complaint of altered mental status and confusion. 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 -acute no vs delerium; Exam and history suggests no given recent use of steroids and sudden nature of event -Appreciate neurology's recommendation -He will likely require inpatient psychiatric treatment, bed search ongoing -Resperdal to 1.5 mg at dinnertime and 0.5 mg in the morning -Clonazepam to 0.5 mg QAM + 0.5 mg QPM -Consider Depakote as mood stablizing agent? Will talk to psychiatry. [place] might not be a good option in setting of cr of 1.6 -Continue all home medication Aggrenox and statin -PT evaluation #Full code for now,/DVT prophylaxis mechanical and subcu heparin/heart healthy diet Problem List: 1. No 2. Altered mental status Pain Ratin Pain Location: n/a Pain Goal: Pain 4 or less Pain Plan: prn Tomorrow's Labs & Rationales: none Pain Goal: Pain 4 or less Pain Plan: prn Tomorrow's Labs & Rationales: none
[2017-09-19] MEDS ORDERED: RISPERIDONE0.5 M1 PO ×2 (10:10)
[2017-09-19] MEDS ORDERED: KLONOPIN0.5 M1 PO ×2 (10:10)
--- NOTE | 2017-09-19 10:51 | PN- Att Addend ---
Attending Addendum Attending Brief Note No new complaints the patient convert this morning sitter at the bedside. Appreciate psychiatry's input and recommendations, so medications were adjusted. Also was recommended patient to go to a facility specializing in geriatric and psychiatric problems. Arrangements will be started with case management and social service director and the family's input continue all the consultants recommendations. Intake & Output 09/19 1600 09/19 0400 09/18 1600 09/18 0400 09/17 1600 09/17 0400 Intake Total 742 116 7699 400 1400 200 Output Total 200 Balance 759 078 7980 400 1400 200 Intake, Oral 697 324 0572 400 1400 200 Number 0 0 Bowel Movements Output, Urine 200 Patient 154 lb Weight Current Medications Sig/Mary Carmen Start time Last Medication Dose Route Stop Time Status Admin Acetaminophen 650 MG .STK-MED ONE 09/18 1555 DC PO 09/18 1556 Acetaminophen 650 MG Q6P PRN 09/15 2129 AC 09/19 PO 0531 Atorvastatin Calcium 10 MG 1700 09/16 1700 AC 09/18 PO 1553 Clonazepam 0.5 MG 09/19 08 AC 09/19 PO 09/26 0759 0814 Clonazepam 0.5 MG 09/18 AC 09/18 PO 09/25 Clonazepam 1 MG 09/16 DC 09/17 PO 09/23 Diltiazem HCl 180 MG DAILY 09/16 09 AC 09/19 PO 0814 Dipyridamole/Aspirin 1 CAP BID 09/16 09 AC 09/19 PO 0815 Docusate Sodium 100 MG TID 09/16 09 AC 09/19 PO 0815 Finasteride 5 MG DAILY 09/16 0900 AC 09/19 PO 0815 Heparin Sodium 5,000 UNIT Q8 09/15 2200 AC 09/19 (Porcine) SC 0530 Isosorbide 60 MG DAILY 09/16 09 AC 09/19 Mononitrate PO 0815 Latanoprost 1 GTT AT BEDTIME 09/16 2100 AC 09/18 OPH 2055 Risperidone 1.5 MG 1700 09/19 1700 AC PO Risperidone 0.5 MG 1000 09/19 1000 AC 09/19 PO 0815 Risperidone 1 MG 1700 09/16 1700 DC 09/18 PO 1553 Tamsulosin HCl 0.4 MG DAILY 09/16 0900 AC 04/23 PO 0814 Laboratory Tests 09/18/17 0720: Anion Gap 12, Estimated GFR 38 L, BUN/Creatinine Ratio 16.5, CBC w Diff NO MAN DIFF REQ, RBC 3.03 L, MCV 93.9, MCH 31.5 H, MCHC 33.5, RDW 12.7, MPV 7.7, Gran % 69.3, Lymphocytes % 17.8 L, Monocytes % 8.8, Eosinophils % 3.6, Basophils % 0.5, Absolute Granulocytes 4.9, Absolute Lymphocytes 1.3, Absolute Monocytes 0.6 , Absolute Eosinophils 0.3, Absolute Basophils 0 Vital Signs Date Time Temp Pulse Resp B/P B/P Pulse O2 O2 Flow FiO2 Mean Ox Delivery Rate 09/19 0815 110/60 09/19 0814 110/60 09/19 0632 97.8 70 20 108/50 94 Room Air 09/18 2210 98.1 74 20 124/56 97 Room Air 09/18 1359 97.6 88 20 110/60 97
--- NOTE | 2017-09-19 11:16 | PN- Psychiatry ---
See Addendum Assessment/Plan Impression: The patient was admitted to medicine from inpatient psychiatry on 09/15/17 for work-up of delirium. Per the inpatient discharge note, "Nursing reported that in the past 24 hours there was an episode or 2 of fecal incontinence. At the same time this morning the patient had severe constipation/impacted. The patient was manually disimpacted and put on stool softener and as needed milk of magnesia if constipation recurs" Dr. Lindo from psychiatry visited the patient on 09/18/17, and recommended inpatient psychiatry when medically cleared, an increase in a short-term antipsychotic, risperidone (Discussed with his daughter, who agreed), splitting the administration of clonazepam, non-pharmaceutical treatment of delirium, and continuation of the safety monitor. The patient has been on clonazepam 1 mg #60 for 30 days, last filled on 09/05/17, and reduced to 1 mg qHS while on inpatient psychiatry, and now at 0.5 mg PO 2X/ day. Benzodiazepines are usually contraindicated in delirium, as they can make it worse, however, the patient has been on this medication for a long time, and a slow taper would be in order, if it is to be discontinued. We recommend that this be maintained at the current dosing for now. As the patient continues to clear, we hope to reduce the risperidone dosing. Dr. Velasco, PCP, had signed a Physician's Emergency Certificate (PEC) earlier today, based on the patient's thought disturbance and Dr. Valentin Lindo recommendation. However, upon revisiting the patient today, he is clearer. We have removed the PEC from the chart. The delirium is likely due to toxic or metabolic causes, and if it is not following a "waxing and waning" pattern, we are hopeful that it will resolve. 09/15/17 TSH and ammonia WNL 09/16/17 UA clear; Utox negative 09/18/17 Sodium, potassium WNL, but BUN 28H/Cr 1.7H. WBC 7.1N (Previously elevated), Platelets sufficient. Collateral: The patient's daughter, Aida, reports today that Dr. Lynch had started the clonazepam for a facial tic. His speech is usually clear and distinct, without mumbling. She believes that the patient's AMS began when the patient was discharged to home after his previous admission, where the clonazepam was stopped. There are no firearms in the house; the patient's son has removed them from the house. We hope to talk with the patient's , Rhonda, later today. Suggestion: 1. Please order a repeat EKG. The last one on 09/15/17 shows SR, 94 bpm, LBBB, QTc 521 mS. 2. Please continue to work up a reversible dementia screen. Vitamin B12, folate, RPR/VDRL, Lyme titer. 3. Continue risperidone 0.5 mg PO daily and 1.5 mg PO at night. Hold for oversedation or respiratory depression. Hold for QTc greater then 475 mS. Keep potassium => 4 and magnesium => 2. 4. Continue clonazepam 0.5 mg PO 2X/day. 5. Do not start alprazolam, as mentioned in a previous note. Subjective Subjective: The patient is lying calmly in bed with his safety monitor in the room. He is oriented to name, place, day, month and year. His speech is soft, mumbled and indistinct; he is hyperverbal, not pressured. He reports he feels safe here and is in no apparent distress. He denies suicidal or homicidal ideation. The answers to question about auditory or visual hallucinations are not recognizable. 1330: The patient is now out of bed and eating his lunch i hius chair. His speech is now mostly understandable, without mumbling. He answers most questions directly, then continues to ramble on with changes in topic. He reports that he felt more confused yesterday. He denies AH or VH, but reports that he was having visual disturbances yesterday, "It was a bad day." He denies SI or HI, but reports that he had a suicide attempt at age 18, but the circumstances are unclear. He feels safe here. He reports that he had a good night of sleep last night. Review of Systems Neurological/Psychological: Reports: confusion. Objective Last 24 Hrs of Vital Signs/I&O Vital Signs Date Time Temp Pulse Resp B/P B/P Pulse O2 O2 Flow FiO2 Mean Ox Delivery Rate 09/19 0815 110/60 09/19 0814 110/60 09/19 0632 97.8 70 20 108/50 94 Room Air 09/18 2210 98.1 74 20 124/56 97 Room Air 09/18 1359 97.6 88 20 110/60 97 Intake & Output 09/19 1600 09/19 0800 09/19 0000 Intake Total 480 480 Output Total 200 Balance 480 280 Intake, Oral 480 480 Number 0 Bowel Movements Output, Urine 200 Patient 154 lb Weight Physical Exam: Not performed Physical Exam General Appearance: no apparent distress, alert, awake, comfortable Ears, Nose, Throat: Pupils noted to be 1.5 mm bilaterally at 1035, 09/19/17. Neurologic/Psychiatric: awake, alert, oriented x 3 Current Medications: Current Medications Sig/Mary Carmen Start time Last Medication Dose Route Stop Time Status Admin Acetaminophen 650 MG .STK-MED ONE 09/18 1555 DC PO 09/18 1556 Acetaminophen 650 MG Q6P PRN 09/150 AC 09/19 PO 0531 Atorvastatin Calcium 10 MG 09/16 170 AC 09/18 PO 1553 Clonazepam 0.5 MG 0809/19 0800 AC 09/19 PO 09/26 0759 0814 Clonazepam 0.5 MG 09/18 AC 09/18 PO 09/25 Clonazepam 1 MG 09/16 DC 09/17 PO 09/23 Diltiazem HCl 180 MG DAILY 09/16 0900 AC 09/19 PO 0814 Dipyridamole/Aspirin 1 CAP BID 09/16 0900 AC 09/19 PO 0815 Docusate Sodium 100 MG TID 09/16 0900 AC 09/19 PO 0815 Finasteride 5 MG DAILY 09/16 0900 AC 09/19 PO 0815 Heparin Sodium 5,000 UNIT Q8 09/15 2200 AC 09/19 (Porcine) SC 0530 Isosorbide 60 MG DAILY 09/16 0900 AC 09/19 Mononitrate PO 0815 Latanoprost 1 GTT AT BEDTIME 09/16 2100 AC 09/18 OPH 2055 Risperidone 1.5 MG 1700 09/19 1700 AC PO Risperidone 0.5 MG 1000 09/19 1000 AC 09/19 PO 0815 Risperidone 1 MG 1700 09/16 1700 DC 09/18 PO 1553 Tamsulosin HCl 0.4 MG DAILY 09/16 0900 AC 09/19 PO 0814 Results Last 24 Hrs of Labs/Mics: Laboratory Tests 09/18 0720 Chemistry Sodium (137 - 145 mmol/L) 143 Potassium (3.5 - 5.1 mmol/L) 4.5 Chloride (98 - 107 mmol/L) 105 Carbon Dioxide (22 - 30 mmol/L) 26 Anion Gap (5 - 16) 12 BUN (9 - 20 mg/dL) 28 H Creatinine (0.7 - 1.2 mg/dL) 1.7 H Estimated GFR (>60 ml/min) 38 L BUN/Creatinine Ratio (7 - 25 %) 16.5 Hematology CBC w Diff NO MAN DIFF REQ WBC (4.8 - 10.8 /CUMM) 7.1 RBC (4.70 - 6.10 /CUMM) 3.03 L Hgb (14.0 - 18.0 G/DL) 9.5 L Hct (42 - 52 %) 28.5 L MCV (80.0 - 94.0 FL) 93.9 MCH (27.0 - 31.0 PG) 31.5 H MCHC (33.0 - 37.0 G/DL) 33.5 RDW (11.5 - 14.5 %) 12.7 Plt Count (130 - 400 /CUMM) 313 MPV (7.4 - 10.4 FL) 7.7 Gran % (42.2 - 75.2 %) 69.3 Lymphocytes % (20.5 - 51.1 %) 17.8 L Monocytes % (1.7 - 9.3 %) 8.8 Eosinophils % (0 - 5 %) 3.6 Basophils % (0.0 - 2.0 %) 0.5 Absolute Granulocytes (1.4 - 6.5 /CUMM) 4.9 Absolute Lymphocytes (1.2 - 3.4 /CUMM) 1.3 Absolute Monocytes (0.10 - 0.60 /CUMM) 0.6 Absolute Eosinophils (0.0 - 0.7 /CUMM) 0.3 Absolute Basophils (0.0 - 0.2 /CUMM) 0 Recent Imaging Studies: PATIENT: JAVIER CASTRO PRESENT AGE: 87 PATIENT ACCOUNT NO: [id number] : 32 LOCATION: [facility] ORDERING PHYSICIAN: Jose Caputo MD SERVICE DATE: 09/14/17- EXAM TYPE: MRI - MRI-HEAD W/O YO EXAMINATION: MR BRAIN WITHOUT CONTRAST CLINICAL INFORMATION: Acute/subacute mental status changes. COMPARISON: CT scan of the head 04/03/2017. TECHNIQUE: MRI of the brain without contrast was obtained using routine sequences. FINDINGS: No diffusion abnormalities are identified to suggest an acute or subacute infarct. No mass effect or midline shift is seen. The ventricles and sulci commensurately prominent consistent with ucze-bw-ructpanr diffuse volume loss. There are relatively extensive scattered areas of T2 and FLAIR hyperintensity in the periventricular and subcortical white matter and in the alicja consistent with chronic microvascular ischemic changes. There are lacunar infarcts in the bilateral durant radiata, more extensive on the right. No extra-axial fluid collections are seen. The cerebellum appears normal. No pathologic magnetic susceptibility artifact is identified on the gradient refocused acquisition. The craniovertebral junction, marrow signal, and midline structures are normal. The major intracranial flow-voids at the level of the [place] are preserved. The dural venous sinus flow-voids are maintained. The mastoid air cells are well-aerated. There is minimal mucoperiosteal thickening in the ethmoid sinuses bilaterally. The nasal septum is deviated to the right and there is a right-sided bony nasal septal spur. IMPRESSION: 1. There are no acute bleeds or infarcts. 2. There is diffuse volume loss. 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 DICTATED BY: Hernandez Euceda MD DATE/TIME DICTATED:09/14/171704 MATERIAL CHASER:RACHID DATE/TIME TRANSCRIBED:09/14/171704 CONFIDENTIAL, DO NOT COPY WITHOUT APPROPRIATE AUTHORIZATION. <Electronically signed in Other Vendor System> SIGNED BY: Hernandez Euceda MD 09/14/17 2582
[2017-09-19 14:30] VITALS: BP 110/42
[2017-09-19 21:55] VITALS: BP 122/60
[2017-09-20 05:43] VITALS: BP 120/64
--- NOTE | 2017-09-20 07:16 | PN- Housestaff ---
Subjective Follow-up For: Confusion Review of Systems Constitutional: Reports: see HPI. Objective Last 24 Hrs of Vital Signs/I&O Vital Signs Date Time Temp Pulse Resp B/P B/P Pulse O2 O2 Flow FiO2 Mean Ox Delivery Rate 09/20 09 120/64 09/20 0923 120/70 09/20 0543 97.3 83 20 120/64 94 Room Air 09/19 2155 97.1 80 20 122/60 98 Room Air 09/19 1430 97.8 89 18 110/42 97 Intake & Output 09/20 1600 09/20 0800 09/20 0000 Intake Total 300 Output Total 250 Balance -250 300 Intake, IV Intake, Oral 300 Output, Urine 250 Physical Exam General Appearance: Alert Skin: No Rashes Skin Temp/Moisture Exam: Warm/Dry Sepsis Skin Exam (color): Normal for Ethnicity HEENT: Atraumatic Neck: Supple Cardiovascular: Normal S1, Normal S2 Lungs: Clear to Auscultation Abdomen: Soft, No Tenderness Extremities: No Edema Assessment/Plan Assessment: 87-year-old gentleman with past medical history of squamous cell carcinoma status post surgery,CKD hypertension, hyperlipidemia, glaucoma, osteoarthritis, Patricia's esophagitis, TIA came to the hospital from Inpatient Psychiatry's with chief complaint of altered mental status and confusion. We are following the patient on general medicine floor for following problems: Altered mental status: -Possibly due to acute gary or delirium. -Acute gary state could be due to use of steroids. -Patient may need inpatient psychiatry. -We'll discontinue the risperidone and check EKG for QTc interval prolongation. -His lyme and syphilis tests are negative. -Continue clonazepam History of TIA: -Continue atorvastatin and Aggrenox History of hypertension hyperlipidemia: -Continue atorvastatin and Cardizem -Continue imdur H/O BPH: -Continue finasteride DVT Prophylaxis: Mechanical and subcutaneous heparin CODE STATUS: Full code Problem List: 1. Altered mental status Pain Ratin Pain Location: none Pain Goal: Remain pain free Pain Plan: pain pathway Tomorrow's Labs & Rationales: cbc/bep
--- NOTE | 2017-09-20 10:12 | PN- Att Addend ---
Attending Addendum Attending Brief Note Patient sitting in the chair, he is not agitated but his speech is still a little pressured Vital signs are stable no fever. No major changes on physical. Psychiatry still re-evaluating the patient for maintenance medications and for disposition plans Intake & Output 09/20 1600 09/20 0400 09/19 1600 09/19 0400 09/18 1600 09/18 0400 Intake Total 300 435 763 6759 400 Output Total 250 200 Balance -250 300 245 682 4290 400 Intake, IV Intake, Oral 300 427 192 9110 400 Number 0 0 Bowel Movements Output, Urine 250 200 Patient 154 lb Weight Current Medications Sig/Mary Carmen Start time Last Medication Dose Route Stop Time Status Admin Acetaminophen 650 MG Q6P PRN 09/150 AC 09/19 PO 0531 Atorvastatin Calcium 10 MG 09/16 170 AC 09/19 PO 1650 Clonazepam 0.5 MG 0809/19 08 AC 09/20 PO 09/26 0759 0923 Clonazepam 0.5 MG 09/18 PO 09/25 1958 214 Diltiazem HCl 180 MG DAILY 09/16 09 AC 09/20 PO 0923 Dipyridamole/Aspirin 1 CAP BID 09/16 09 AC 09/20 PO 0923 Docusate Sodium 100 MG TID 09/16 09 AC 09/19 PO 214 Finasteride 5 MG DAILY 09/16 09 AC 09/20 PO 0923 Heparin Sodium 5,000 UNIT Q8 09/15 2200 09/20 (Porcine) SC 0543 Isosorbide 60 MG DAILY 09/16 0909/20 Mononitrate PO 0923 Latanoprost 1 GTT AT BEDTIME 09/16 2100 AC 09/19 OPH 2146 Risperidone 1.5 MG 17009/19 1700 AC 09/19 PO 1650 Risperidone 0.5 MG 1000 09/19 1000 AC 09/19 PO 0815 Tamsulosin HCl 0.4 MG DAILY 09/16 09 AC 09/20 PO 0923 Laboratory Tests 09/18/17 0720: Anion Gap 12, Estimated GFR 38 L, BUN/Creatinine Ratio 16.5, Vitamin B12 557, Folate 18.1, CBC w Diff NO MAN DIFF REQ, RBC 3.03 L, MCV 93.9, MCH 31.5 H, MCHC 33.5, RDW 12.7, MPV 7.7, Gran % 69.3, Lymphocytes % 17.8 L, Monocytes % 8.8, Eosinophils % 3.6, Basophils % 0.5, Absolute Granulocytes 4.9, Absolute Lymphocytes 1.3, Absolute Monocytes 0.6, Absolute Eosinophils 0.3, Absolute Basophils 0, RPR Titer/FTA Pending, Lyme Disease Antibody Pending Vital Signs Date Time Temp Pulse Resp B/P B/P Pulse O2 O2 Flow FiO2 Mean Ox Delivery Rate 09/20 0923 120/64 09/20 0923 120/70 09/20 0543 97.3 83 20 120/64 94 Room Air 09/19 2155 97.1 80 20 122/60 98 Room Air 09/19 1430 97.8 89 18 110/42 97 His baseline kidney function has been abnormal for many months without indication of chronic kidney insufficiency stage III.
--- NOTE | 2017-09-20 13:05 | Incdntl Nt Psy ---
Incidental Note Notation: The patient was seen briefly today at 1200. He is eating lunch and is calm and cooperative. He is oriented to name, place, month and year. His speech is dysarthritic, as it was yesterday early at 0800 and 1700. He is not delirious. His answers are rambling after he provieds a direct answer. He is not suicidal or homicidal. He denies hallucinations. We had asked that the risperidone be held yesterday, due to a repeat EKG showing a QTc greater than 475 mS. This may be a skewed result, due to the bundle branck block, and we had asked that cardiology comment on this. The patient has not had risperidone this morning, and does not appear to need it at this time. We believe he is owning in the afternoon, which should be manageable with redirection. We believe that the patient may not be metabolizing or excreting clonazepam and its metabolites as well as he did previously, and may be intoxicated, even at the currentlow dose. The family has been opposed to lowering it, but we suggest a trial at 0.25 mg PO 3X/day. It cannot be stopped abruptly, due concerns about seizure or DTs. The patient has had a number of insults lately including at least one infective process earlier this month, and infarcts have been noted as well as lung nodules. We feel that there is something else in play that we cannot identlfy. We suggest that neurology be consulted, if they have not been already. The remark about removing the PEC yesterday is in error. It is in the chart, but has been voided, after a discussion yesteday with the attending of record, Dr. Velasco. We thought we ht need it, per Dr. Lindo' suggestion on 09/18/17, but have decided that it is not needed.
[2017-09-20 14:31] VITALS: BP 114/58
[2017-09-20 21:49] VITALS: BP 140/64
[2017-09-21 06:20] VITALS: BP 112/56
--- NOTE | 2017-09-21 07:00 | Discharge Summary ---
Visit Information Visit Dates Admission Date: 09/18/17 Discharge Date: 09/23/17 Hospital Course Course Attending Physician: Heladio Velasco MD Primary Care Physician: Heladio Velasco MD Hospital Course: 87-year-old gentleman with past medical history of squamous cell carcinoma status post surgery,CKD hypertension, hyperlipidemia, glaucoma, osteoarthritis, Patricia's esophagitis, TIA came to the hospital from Inpatient Psychiatry's floor with chief complaint of altered mental status and confusion. Initial vital on admission Vital Signs Date Time Temp Pulse Resp B/P B/P Pulse O2 O2 Flow FiO2 Mean Ox Delivery Rate 09/16 2215 97.5 94 18 140/60 97 Room Air 09/15 2014 97.9 100 18 126/80 96 Room Air Physical Exam General Appearance Alert, Oriented X3, Cooperative HEENT PERRLA Cardiovascular Regular Rate, Normal S1, Normal S2 Lungs decreased sounds BL Abdomen Normal Bowel Sounds, Soft Neurological Normal Speech Extremities +1 BL edema Worsening delirium due to multifactorial reasons/causes: Pt had been noted to be disorganized, labile with some congitive deficits, he was admitted to general medicine floor. Neurology was consulted and felt most c/ w delirium versus gary. Records from MRI done on 09/14 showed diffuse volume loss and scattered chronic microvascular ischemic changes and lacunar infarcts, right greater than left. Medical team obtained comprehensive metabolic panel, TSH, b12M and RPR , Lyme's titer to assess for any reverible cause, all the tests were unremarkable. Psychiatric consult was obtained, according to the recommendations we stopped risperidone. Psychiatry also wanted to stop clonazepam, but the family refused. After psychiatry and neurology input , it was concluded that the patient's worsening mental condition can be multifactorial (with several possible causes/ reasons including worsening dementia probably vascular in origin/tumor in the saliva gland/clonazepam side effects). Patient has been transferred to get second opinion at a higher level of care, regarding current mental status. Allergies: Coded Allergies: NO KNOWN ALLERGIES (05/22/12) Disposition Summary Disposition Principal Diagnosis: Worsening delirium due to multifactorial reasons/causes Additional Diagnosis: History of TIA, CKD, anemia, Osteoarthritis, HTN, HLD Discharge Disposition: other general hospital Discharge Instructions General Discharge Information Code Status: Full Code Patient's Diet: Heart healthy diet. Patient's Activity: As tolerated Follow-Up Instructions/Appts: Patient has been transferred to get second opinion at a higher level of care, regarding current mental status. Medications at Discharge Discharge Medications: Stop taking the following medications: Clonazepam (Klonopin) 1 MG TABLET ORAL 1999 Qty = 1 Risperidone (Risperdal) 1 MG TABLET ORAL 5 PM Qty = 1 Alprazolam (Alprazolam) 0.5 MG TABLET ORAL AT BEDTIME NEEDED as needed for INSOMNIA Qty = 1 Continue taking these medications: Dipyridamole W/ Aspirin (Aggrenox 25 MG-200 MG Capsule) 25 MG-200 MG CPMP.12HR 1 Tablet ORAL TWICE DAILY Qty = 52 Comments: Last Taken: 09/23/17 Time: 0900 Tamsulosin HCl (Tamsulosin HCl) 0.4 MG CAP.ER.24H 1 Capsule ORAL DAILY Qty = 82 Comments: Last Taken:09/23/17 Time:9:20AM Isosorbide Mononitrate (Isosorbide Mononitrate ER) 60 MG TAB.ER.24H 1 Tablet ORAL DAILY Qty = 82 Comments: Last Taken:09/22/17 Time:9:20AM Travoprost (Travatan Z) 0.004 % DROPS 1 Drop Both Eyes Every night Qty = 1 Comments: Last Taken:08/30/17 Time:9PM Finasteride (Finasteride) 5 MG TABLET 1 Tablet ORAL DAILY Comments: Last Taken:09/23/17 Time:9:20AM Diltiazem HCl (Diltiazem 24HR ER) 180 MG CAP.ER.24H 1 Capsule ORAL DAILY Qty = 30 Instructions: . Comments: Last Taken:09/23/17 Time:0920 Atorvastatin Calcium (Atorvastatin Calcium) 10 MG TABLET 10 Milligram ORAL 5 PM Qty = 1 Comments: Last Taken:09/23/17 Time:1709 Docusate Sodium (Docusate Sodium) 100 MG CAPSULE 100 Milligram ORAL THREE TIMES DAILY Qty = 3 Comments: Last Taken:09/22/17 Time: 10 PM Start taking the following new medications: Clonazepam (Klonopin) 0.5 MG TABLET 1 Tablet ORAL 1999 Qty = 30 No Refills Comments: Last Taken: 09/22/17 Time: 10 PM Clonazepam (Klonopin) 0.5 MG TABLET 1 Tablet ORAL DAILY @8 AM Qty = 30 No Refills Copies To: Heladio Velasco MD
--- NOTE | 2017-09-21 07:27 | PN- Housestaff ---
Subjective Follow-up For: AMS Unsteady gait Subjective: No overnight events. Patient remained afebrile but apparently seen and examined this morning. Patient denied any chest pain, short of breath, nausea, vomiting, abdominal pain dysuria. Patient having weakness and unsteady gait. He is using walker to walk around. During conversation he was mumbling that I couldn't understand what he is saying but he was clearing on seeing my questioning yes and no. Review of Systems Constitutional: Reports: see HPI. Objective Last 24 Hrs of Vital Signs/I&O Vital Signs Date Time Temp Pulse Resp B/P B/P Pulse O2 O2 Flow FiO2 Mean Ox Delivery Rate 09/21 0620 99.1 73 18 112/56 95 Room Air 09/20 2149 97.7 69 20 140/64 96 Room Air 09/20 1431 97.6 78 20 114/58 96 Room Air Intake & Output 09/21 1600 09/21 0800 09/21 0000 Intake Total 0 Output Total Balance 0 Intake, Oral 0 Patient 154 lb Weight Physical Exam General Appearance: Alert, Cooperative Skin: No Rashes Skin Temp/Moisture Exam: Warm/Dry Sepsis Skin Exam (color): Normal for Ethnicity HEENT: Atraumatic, EOMI Neck: Supple Cardiovascular: Normal S1, Normal S2 Lungs: Clear to Auscultation Abdomen: Soft, No Tenderness Neurological: Normal Speech, Normal Tone Extremities: No Edema Assessment/Plan Assessment: 87-year-old gentleman with past medical history of squamous cell carcinoma status post surgery,CKD hypertension, hyperlipidemia, glaucoma, osteoarthritis, Patricia's esophagitis, TIA came to the hospital from Inpatient Psychiatry's with chief complaint of altered mental status and confusion. We are following the patient for following problems: Altered mental status: -Possibly due to acute no or delirium. -Acute no state could be due to use of steroids. -Patient may need inpatient psychiatry. -His lyme and syphilis tests are negative. -Continue clonazepam -Swallow eval is normal so we will start diet for him. History of TIA: -Continue atorvastatin and Aggrenox History of hypertension hyperlipidemia: -Continue atorvastatin and Cardizem -Continue imdur H/O BPH: -Continue finasteride DVT Prophylaxis: Mechanical and subcutaneous heparin CODE STATUS: Full code Problem List: 1. No 2. Altered mental status Pain Ratin Pain Location: none Pain Goal: Remain pain free Pain Plan: pain pathway Tomorrow's Labs & Rationales: none
--- NOTE | 2017-09-21 14:35 | PN- Att Addend ---
Attending Addendum Attending Brief Note Patient sitting in the chair, sitter at the bedside. Patient speech is still a little difficult to understand. Not agitated. Temp max 99 1 other vital signs are stable with no new changes on physical will check with Adis Escobedo MD to see if there is any other testing or ENT consultation needed for starting disposition plans and also is planning to do any more pulmonary workup, psychiatry adjusted the risperidone down psychiatry still thinks that maybe some medical component contributing to the patient's symptoms. Intake & Output 09/21 Intake Total 0 250 300 730 480 Output Total 250 200 Balance 0 0 300 730 280 Intake, IV Intake, Oral 0 250 300 730 480 Number 0 Bowel Movements Output, Urine 250 200 Patient 154 lb 154 lb Weight Current Medications Sig/Mary Carmen Start time Last Medication Dose Route Stop Time Status Admin Acetaminophen 650 MG Q6P PRN 09/15 PO 0531 Atorvastatin Calcium 10 MG 09/16 170 AC 09/20 PO 1747 Clonazepam 0.5 MG 09/19 08 AC 09/21 PO 09/26 0759 0958 Clonazepam 0.5 MG 09/18 PO 09/25 1959 2239 Diltiazem HCl 180 MG DAILY 09/16 899 AC 09/21 PO 0952 Dipyridamole/Aspirin 1 CAP BID 09/16 09 AC 09/21 PO 1353 Docusate Sodium 100 MG TID 09/16 09 AC 09/21 PO 1352 Finasteride 5 MG DAILY 09/16 09 AC 09/21 PO 1355 Heparin Sodium 5,000 UNIT Q8 09/15 2199 AC 09/21 (Porcine) SC 1357 Isosorbide 60 MG DAILY 09/16 Mononitrate PO 0923 Latanoprost 1 GTT AT BEDTIME 09/16 2100 09/20 OPH 2118 Tamsulosin HCl 0.4 MG DAILY 09/16 09 AC 09/21 PO 1351 Laboratory Tests 09/21/17 0655: Anion Gap 11, Estimated GFR 41 L, BUN/Creatinine Ratio 15.6 Vital Signs Date Time Temp Pulse Resp B/P B/P Pulse O2 O2 Flow FiO2 Mean Ox Delivery Rate 09/21 1351 76 116/48 04/25 0620 99.1 73 18 112/56 95 Room Air 09/20 2149 97.7 69 20 140/64 96 Room Air
[2017-09-21 15:04] VITALS: BP 110/52
--- NOTE | 2017-09-21 18:11 | Incdntl Nt Psy ---
Incidental Note Notation: The patient is alert and oriented, with more distinct and articulate speech than in previous days. He is hard of hearing. He is calm and plese, and eating his supper. Most questions are answered in long, not necessarily disconnected speeches, but he is hyperverbal. Asked about visual disturbances, he describes something that happened at home, a light moving across his field of vision. Here in the hospital, he describes people doing things, not necessarily to him. He may be misunderstanding my question due to hearing difficulty, but he does not appear to be in distress, although his responses can be odd. We would not suggest medication the patient for these seeming harmless disturbances. He seems to be doing well off scheduled risperidone, which should be reserved for dangerous or severe agitation, such as pulling on restraints. He is not currently in restraints or in a [place] vest. If an antipsychotic is required, consider Haldol 1 mg PO q 12 hours, as needed, for severe or dangerous agitation. Use IM if the patient is unable to take PO. It is probably best not to order this until needed, as there is an increased risk of sudden in the elderly. I spoke with the patient's spouse and son this afternoon separately. The son, Navi, notes that his father has taken off his shirt several times, something he has not done in the past. We will continue to follow along with you.
[2017-09-21 22:39] VITALS: BP 132/60
[2017-09-22 06:44] VITALS: BP 126/56
--- NOTE | 2017-09-22 07:11 | PN- Housestaff ---
Subjective Follow-up For: AMS Unsteady gait Subjective: No overnight events. Patient remained afebrile. Seen and examined this morning. Patient has hard of hearing. He denied any chest pain, short of breath, nausea , vomiting, chills, fever, abdominal pain dysuria. Patient is walking with the help of the walker. Review of Systems Constitutional: Reports: see HPI. Objective Last 24 Hrs of Vital Signs/I&O Vital Signs Date Time Temp Pulse Resp B/P B/P Pulse O2 O2 Flow FiO2 Mean Ox Delivery Rate 09/22 0644 97.9 90 16 126/56 93 Room Air 09/21 2239 97.6 84 18 132/60 96 Room Air 09/21 1504 97.8 81 18 110/52 97 09/21 1449 Room Air Room Air 09/21 1351 76 116/48 Intake & Output 09/22 1600 09/22 0800 09/22 0000 Intake Total 100 100 Output Total Balance 100 100 Intake, Oral 100 100 Physical Exam General Appearance: Alert, Cooperative Skin: No Rashes Skin Temp/Moisture Exam: Warm/Dry Sepsis Skin Exam (color): Normal for Ethnicity HEENT: Atraumatic, PERRLA, EOMI Neck: Supple Cardiovascular: Normal S1, Normal S2 Lungs: Clear to Auscultation Abdomen: Soft, No Tenderness Neurological: Normal Speech, Normal Tone Extremities: No Edema Assessment/Plan Assessment: 87-year-old gentleman with past medical history of squamous cell carcinoma status post surgery,CKD hypertension, hyperlipidemia, glaucoma, osteoarthritis, Patricia's esophagitis, TIA came to the hospital [facility] with chief complaint of altered mental status and confusion. We are following the patient for following problems: Altered mental status:(improving) -Acute no state could be due to use of steroids. -Patient may need inpatient psychiatry. -His lyme and syphilis tests are negative. -Continue clonazepam -Patient is off risperidone and is doing fine. If patient becomes agitated we will give him Haldol 1 po mg every 12 hourly. -Patient is doing physiotherapy and walking with the help of walker. -manager club will review the case again and if there is a possibility to send him to short-term rehabilitation. History of TIA: -Continue atorvastatin and Aggrenox History of hypertension hyperlipidemia: -Continue atorvastatin and Cardizem -Continue imdur H/O BPH: -Continue finasteride DVT Prophylaxis: Mechanical and subcutaneous heparin CODE STATUS: Full code Problem List: 1. No 2. Altered mental status Pain Ratin Pain Location: none Pain Goal: Remain pain free Pain Plan: pain pathway Tomorrow's Labs & Rationales: none
--- NOTE | 2017-09-22 10:36 | PN- Att Addend ---
Attending Addendum Attending Brief Note Patient sitting in the chair still has the sitter in the room. Made a little clearer this morning, patient very hard of hearing Vital signs are stable no fever. No other changes on physical. We reviewed the Lyme titer was negative will have clinical pharmacy manager the case and see what the best disposition plans we can come up with Intake & Output 09/22 0400 09/21 0400 09/20 040 Intake Total 100 100 600 250 300 Output Total 250 Balance 100 100 600 0 300 Intake, IV Intake, Oral 100 100 600 250 300 Number 1 Bowel Movements Output, Urine 250 Patient 154 lb Weight Current Medications Sig/Mary Carmen Start time Last Medication Dose Route Stop Time Status Admin Acetaminophen 650 MG Q6P PRN 09/15 2129 AC 09/19 PO 0531 Atorvastatin Calcium 10 MG 09/16 170 AC 09/21 PO 1631 Clonazepam 0.5 MG 09/19 08 AC 09/22 PO 09/26 0759 0936 Clonazepam 0.5 MG 09/18 AC 09/21 PO 09/25 195 2219 Diltiazem HCl 180 MG DAILY 09/16 09 AC 09/22 PO 0937 Dipyridamole/Aspirin 1 CAP BID 09/16 0909/22 PO 0937 Docusate Sodium 100 MG TID 09/16 09 AC 09/22 PO 0937 Finasteride 5 MG DAILY 09/16 09 AC 09/22 PO 0937 Heparin Sodium 5,000 UNIT Q8 09/15 (Porcine) SC 0625 Isosorbide 60 MG DAILY 09/16 0909/22 Mononitrate PO 0937 Latanoprost 1 GTT AT BEDTIME 09/16 2100 AC 09/21 OPH 2219 Tamsulosin HCl 0.4 MG DAILY 09/16 09 AC 09/22 PO 0937 Laboratory Tests 09/21/17 0655: Anion Gap 11, Estimated GFR 41 L, BUN/Creatinine Ratio 15.6 Vital Signs Date Time Temp Pulse Resp B/P B/P Pulse O2 O2 Flow FiO2 Mean Ox Delivery Rate 09/22 0644 97.9 90 16 126/56 93 Room Air 09/21 2239 97.6 84 18 132/60 96 Room Air 09/21 1504 97.8 81 18 110/52 97 09/21 1449 Room Air Room Air 09/21 1351 76 116/48
[2017-09-22 14:39] VITALS: BP 110/50
[2017-09-22 15:15] VITALS: BP 98/58
[2017-09-23 06:45] VITALS: BP 100/52
--- NOTE | 2017-09-23 07:18 | PN- Housestaff ---
Subjective Follow-up For: AMS Unsteady gait Subjective: No overnight events. Patient remained afebrile overnight. Seen and examined this morning. He denied any chest pain, short of breath, nausea, vomiting, chills, fever, abdominal pain dysuria. He was sitting in chair and having his breakfast. Patient is eating and drinking without any complaint. He is walking with the help of walker. Patient is much improved and he is alert and oriented. Dr. Velasco has meeting with the family today to plan further about the patient care. Review of Systems Constitutional: Denies: chills, fever. EENTM: Reports: no symptoms. Cardiovascular: Denies: chest pain, palpitations. Respiratory: Denies: cough, short of breath, sputum production. Gastrointestinal: Denies: abdominal pain, constipation, diarrhea, nausea. Genitourinary: Reports: no symptoms. Neurological/Psychological: Reports: no symptoms. Objective Last 24 Hrs of Vital Signs/I&O Vital Signs Date Time Temp Pulse Resp B/P B/P Pulse O2 O2 Flow FiO2 Mean Ox Delivery Rate 09/23 0645 97.7 90 20 100/52 94 Room Air 09/22 1515 97.5 77 18 98/58 95 09/22 1439 97.4 80 18 110/50 94 Room Air Intake & Output 09/23 1600 09/23 0800 09/23 0000 Intake Total 50 100 Output Total Balance 50 100 Intake, Oral 50 100 Physical Exam General Appearance: Alert, Cooperative Skin: No Rashes Skin Temp/Moisture Exam: Warm/Dry Sepsis Skin Exam (color): Normal for Ethnicity HEENT: Atraumatic, PERRLA, EOMI Neck: Supple Cardiovascular: Normal S1, Normal S2 Lungs: Clear to Auscultation Abdomen: Soft, No Tenderness Neurological: Normal Speech, Strength at 5/5 X4 Ext, Normal Tone Extremities: No Edema Assessment/Plan Assessment: 87-year-old gentleman with past medical history of squamous cell carcinoma status post surgery,CKD hypertension, hyperlipidemia, glaucoma, osteoarthritis, Patricia's esophagitis, TIA came to the hospital from [facility]patient [facility] with chief complaint of altered mental status and confusion. We are following the patient for following problems: Altered mental status:(improving) -Presented with acute no state could be due to use of steroids. -His lyme and syphilis tests are negative. -Continue clonazepam -Patient is off risperidone and is doing fine. If patient becomes agitated we will give him Haldol 1 po mg every 12 hourly. -Patient is doing physiotherapy and walking with the help of walker. -hydroelectric production manager will review the case again and if there is a possibility to send him to short-term rehabilitation. History of TIA: -Continue atorvastatin and Aggrenox History of hypertension hyperlipidemia: -Continue atorvastatin and Cardizem -Continue imdur H/O BPH: -Continue finasteride DVT Prophylaxis: Mechanical and subcutaneous heparin CODE STATUS: Full code Problem List: 1. No 2. Altered mental status Pain Ratin Pain Location: none Pain Goal: Remain pain free Pain Plan: pain pathway Tomorrow's Labs & Rationales: none
--- NOTE | 2017-09-23 11:13 | PN- Att Addend ---
Attending Addendum Attending Brief Note Today patient looks much better, his speech is clear, is alert and oriented Vital signs are stable no fever abnormal no new changes on physical. And meeting is set this afternoon to relay the progress of the patient and family and to get a plan for further evaluation and treatments Intake & Output 09/23 1600 09/23 0400 09/22 1600 09/22 0400 09/21 1600 09/21 0400 Intake Total 50 100 1020 100 600 Output Total Balance 50 100 1020 100 600 Intake, IV 20 Intake, Oral 50 100 1000 100 600 Number 1 1 Bowel Movements Patient 154 lb Weight Current Medications Sig/Mary Carmen Start time Last Medication Dose Route Stop Time Status Admin Acetaminophen 650 MG Q6P PRN 09/15 2130 AC 09/19 PO 0531 Atorvastatin Calcium 10 MG 1700 09/16 170 AC 09/22 PO 1807 Bisacodyl 10 MG ONCE ONE 09/22 1445 DC 09/22 HI 09/22 1446 1448 Clonazepam 0.5 MG 09/19 08 AC 09/23 PO 09/26 0759 0904 Clonazepam 0.5 MG 09/18 AC 09/22 PO 09/25 1959 2215 Diltiazem HCl 180 MG DAILY 09/16 09 AC 09/23 PO 0900 Dipyridamole/Aspirin 1 CAP BID 09/16 0900 AC 09/23 PO 0905 Docusate Sodium 100 MG TID 09/16 0900 AC 09/22 PO 2210 Finasteride 5 MG DAILY 09/16 0900 AC 09/23 PO 0903 Heparin Sodium 5,000 UNIT Q8 09/15 2200 AC 09/23 (Porcine) [place] 0648 Isosorbide 60 MG DAILY 09/16 09 AC 09/22 Mononitrate PO 0937 Latanoprost 1 GTT AT BEDTIME 09/16 2100 AC 09/22 OPH 2211 Tamsulosin HCl 0.4 MG DAILY 09/16 09 AC 09/23 PO 0902 Trimethobenzamide HCl 200 MG ONCE ONE 09/22 1445 DC 09/22 IM 09/22 1446 1447 Laboratory Tests 09/21/17 0655: Anion Gap 11, Estimated GFR 41 L, BUN/Creatinine Ratio 15.6 Vital Signs Date Time Temp Pulse Resp B/P B/P Pulse O2 O2 Flow FiO2 Mean Ox Delivery Rate 09/23 1110 Room Air Room Air 09/23 1107 Room Air Room Air 09/23 0902 95 104/40 09/23 0645 97.7 90 20 100/52 94 Room Air 09/22 1515 97.5 77 18 98/58 95 09/22 1439 97.4 80 18 110/50 94 Room Air
[2017-09-23 14:22] VITALS: BP 116/72
--- NOTE | 2017-09-23 16:24 | Incdntl Nt Psy ---
See Addendum Incidental Note Notation: Family meeting today in the patient's room with the patient, his , his son, his son-in-law, his case filler and this appeals writer. MSE: The patient is alert and oriented. He is calm and pleasant. He denies auditory or visual hallucinations. He has reported seeing flashes of light moving across his vision at home; he has PMH of glaucoma and lens implant. He reports that at times he talks to the ceiling, but it is unclear if he is hearing responses. His spouse reports that this had occurred previously 60 years ago in [place]. The patient is unable to differentiate between that time and now, and it is unclear if he is remembering the earlier event. The family denies any history of psychiatric diagnosis or hospitalization. Most questions are answered directly, but some are circumstantial or tangential, requiring redirection. He feels safe here, but not at home, because he is concerned about the cleanliness. The patient is perseverating, asking repeatedly what "3 or 4 fingers mean? What is the significance?" The patient denies suicidal or homicidal ideation. Impression: The family reports that depite the patient's speech becoming clearer , between periods of dysarthria, he is not at his baseline mentation, noting his tangential answers and rambling, uninterrupted speech. He is interruptible. His son reports that he had been taking his short off for several days, which he would never do before his prior admission on 08/26/17. The family is very concerned about his safety at home, citing his current delusional thought content, and his frail 's inability to manage him if he decided to act on this thought content. During the interview, the patient alluded to his son transporting him to the hospital for chest pain on many occasions, which the son denies. 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 Per the family, the clonazepam was initiated more than [address] 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 We recommend: 1. Referral for a second opinion at a higher level of care. 2. Taper off clonazepam as soon as practical. 3. Geriatric consult Case management will provide copies of imaging and lab results to the receiving facility. Psychiatry is signing off. Thank you for this consult.
== END 2017-09-23 20:07 | disposition short-term general hospital (02) | DRG 885 ==
LOC: 2NA 16:40
PROVIDERS: Internal Medicine; Radiology Vascular & Interventional Radiology
DX: F30.8 Other manic episodes (principal); F05 Delirium due to known physiological condition; N18.3 Chronic kidney disease, stage 3 (moderate); F03.90 Unspecified dementia, unspecified severity, without behavioral disturbance, psychotic disturbance, mood disturbance, and anxiety; R15.9 Full incontinence of feces; I12.9 Hypertensive chronic kidney disease with stage 1 through stage 4 chronic kidney disease, or unspecified chronic kidney disease; E78.5 Hyperlipidemia, unspecified; H40.9 Unspecified glaucoma; K22.70 Barrett's esophagus without dysplasia; R47.1 Dysarthria and anarthria; K21.9 Gastro-esophageal reflux disease without esophagitis; H35.30 Unspecified macular degeneration; R91.8 Other nonspecific abnormal finding of lung field; R26.89 Other abnormalities of gait and mobility; N40.0 Benign prostatic hyperplasia without lower urinary tract symptoms; Z86.73 Personal history of transient ischemic attack (TIA), and cerebral infarction without residual deficits; Z85.828 Personal history of other malignant neoplasm of skin
CPT/HCPCS: 2NAP; 86618; 36415; 36592; 71045; 80307; 81003; 82436; 93005; 93010; 97112-GO; 97116-GO; 97116-GP; 97161-GP; 97530-GO; 99233; J1644; J3250